=== PATIENT | female | born 1945 | race Caucasian/White ===

== ENCOUNTER 2017-04-18 13:13 | Inpatient (IN) | payer MEDICARE, MEDICAID ==
--- NOTE | 2017-04-18 14:04 | ED Physician Chart ---
ED Chief Complaint/HPI - Patient Information Date Seen:: 04/18/17 Time Seen:: 13:50 Chief Complaint:: aggressive behavior History of Present Illness:: location; general quality: yelling, aggressive behavior severity: moderate duration; one day context: SNF pt with psychiatric disorder started to yell very loudly at staff today. no fever, no medical complaint. pt yelled and swore at staff and threw items at medical staff. SNF staff called Dr. Gilbert who advised send for psychiatric evaluation and treatment. pt with prior history of same. no shortness of breath, no chest pain. mod factors: none assoc s/s; none hx from SNF RN, medic, patient. Allergies:: Allergies Allergy/AdvReac Type Severity Reaction Status Date / Time No Known Allergies Allergy Verified 04/18/17 13:58 Historian:: Patient, EMS, Other Review:: Nurse's Note Reviewed, EMS run form Reviewed ED Review of Systems - Review of Systems General/Constitutional: No fever Skin: No rash Cardio Vascular: No edema Pulmonary: No cough, No wheezing GI: No vomiting, No melena Psychiatric: Prior psych history Allergic/Immuno: No angioedema Neurological: No syncope, No seizure ED Past Medical History - Past Medical History Past Medical History: HTN, Asthma/COPD, Dyslipidemia Family History: None Social History: Non Smoker, No Alcohol, No Drug Use, Single, Care Facility Surgical History: None (pt answers with confabulation type talking (speaking of frogs, and wolves with clear speech)) Psychiatricy History: None Medication: None Family Medical History - Family Member Mother History Unknown: Yes Ethnicity: Non- ED Physical Exam - Physical Examination General/Constitutional: Awake, Well-developed, well-nourished, Alert, No distress, GCS 15, Non-toxic appearing, Ambulatory Head: Atraumatic Eyes: Lids, conjuctiva normal, PERRL, EOMI Skin: Nl inspection, No rash, No skin lesions, No ecchymosis, Well hydrated, No lymphadenopathy ENMT: External ears, nose nl, Nasal exam nl, Lips, teeth, gums nl Neck: Nontender, Full ROM w/o pain, No JVD, No nuchal rigidity, No bruit, No mass, No stridor Respiratory: Nl effort/Exclusion, Clear to Auscultation, No Wheeze/Rhonchi/Rales Cardio Vascular: RRR GI: No tenderness/rebounding/guarding : No CVA tenderness Extremities: No tenderness or effusion, Full ROM, normal strength in all extremities, No edema, Normal digits & nails Neuro/Psych: Alert/oriented (alert and awake, not oriented to time, place or season), DTR's symmetric, Normal sensory exam, Normal motor strength, Mood normal, Normal gait, No focal deficits ED Labs/Radiology/EKG Results - Lab Results Results: Laboratory Tests 04/18/17 04/18/17 04/18/17 14:00 14:00 14:00 WBC 8.7 RBC 4.79 Hgb 14.2 D Hct 43.4 D MCV 90.6 MCH 29.6 MCHC Differential 32.7 RDW 12.9 Plt Count 324 MPV 8.2 Neutrophils % 55.5 Lymphocytes % 32.8 Monocytes % 8.2 Eosinophils % 2.9 Basophils % 0.6 Sodium 137 Potassium 5.2 H Chloride 107 Carbon Dioxide 24.1 Anion Gap 11.1 BUN 29 H Creatinine 0.8 Est GFR ( Amer) TNP Est GFR (Non-Af Amer) TNP BUN/Creatinine Ratio 36.3 Glucose 102 Calcium 9.9 Total Bilirubin 0.3 AST 19 ALT 14 Alkaline Phosphatase 78 Total Protein 6.8 Albumin 4.0 Globulin 2.8 Albumin/Globulin Ratio 1.4 Triglycerides 122 Cholesterol 143 LDL Cholesterol Direct 79 HDL Cholesterol 48 TSH 2.32 ED Assessment - Assessment General Assessment: medical decision making: pt with psychiatric disorder. aggressive behavior worsenend today. recommend geropsych evaluation and treatment as inpatient. Dr. Gilbert and Lindy accept pt for treatment. findings consistent with acute psychotic behavior vs other ED Septic Shock - . Is Septic Shock (SBP<90, OR Lactate>4 mmol\L) present?: No ED Reassessment (Disposition) - Reassessment Reassessment:: pt in stable condition while in ER. pt yells out at staff very loudly and forcefully pushes away staff who are trying to help patient. Reassessment Condition:: Unchanged - Diagnosis Diagnosis:: acute psychosis medical clearance for [facility] - Patient Disposition Discharge/Transfer:: Acute Care w/in this hosp Admitted to:: [facility] Admitting Medical Physician:: Oswald Gilbert Admitting Psych Physician:: Ovidio Breaux Time:: 16:00 Condition at Disposition:: Stable
[2017-04-18 14:09] LABS: % BASOPHILS 0.6 % (0.0-2.0); % EOSINOPHILS 2.9 % (0.0-5.0); % LYMPHOCYTES 32.8 % (20.0-50.0); % MONOCYTES 8.2 % (2.0-10.0); % NEUTROPHILS 55.5 % (40.0-80.0); MEAN CELL VOLUME 90.6 fl (81-100); MEAN CORPUSCULAR HEMOGLOBIN 29.6 pg (27.0-31.0); MEAN CORPUSCULAR HGB CONC 32.7 pg (28.0-36.0); MEAN PLATELET VOLUME 8.2 fl; NEUTROPHILE ABSOLUTE 4.7 Th/cmm (1.8-8.0); PLATELET COUNT 324 Th/cmm (150-400); RED BLOOD COUNT 4.79 Mil/cmm (3.80-5.20); RED CELL DISTRIBUTION WIDTH 12.9 % (11.5-20.0); WHITE BLOOD COUNT 8.7 Th/cmm (4.8-10.8)
[2017-04-18 14:10] LABS: HEMATOCRIT 43.4 % (41.0-60); HEMOGLOBIN 14.2 gm/dL (12-16)
[2017-04-18 14:37] LABS: ALB/GLOB RATIO 1.4 (1.0-1.8); ALKALINE PHOSPHATASE 78 U/L (34-104); ANION GAP 11.1 (7.0-16.0); BILIRUBIN,TOTAL 0.3 mg/dL (0.3-1.0); BUN - UREA NITROGEN 29 mg/dL (7-25); BUN/CREATININE RATIO 36.3; CALCIUM SERUM 9.9 mg/dL (8.6-10.3); CARBON DIOXIDE 24.1 mEq/L (21.0-31.0); CHLORIDE 107 mEq/L (98-107); CHOLESTEROL 143 mg/dL (<200); CREATININE - SERUM 0.8 mg/dL (0.6-1.2); GLUCOSE 102 mg/dL (70-105); POTASSIUM SERUM 5.2 mEq/L (3.5-5.1); SGOT 19 U/L (13-39); SGPT/ALT 14 U/L (7-52); SODIUM SERUM 137 mEq/L (136-145); TRIGLYCERIDES 122 mg/dL (<150)
[2017-04-18 18:06] VITALS: BP 0/0
[2017-04-18] MEDS ORDERED: Fleet Enema 135 mL RC PRN (19:15)
[2017-04-19] MEDS ORDERED: Levothyroxine 0.025 Mg Tab PO SCH (07:30)
[2017-04-19] MEDS ORDERED: MULTIMINERAL PO SCH (09:00)
[2017-04-19] MEDS ORDERED: Ferrous Sulfate 325 MG TAB PO SCH (09:00)
[2017-04-19] MEDS ORDERED: MULTIVITAMIN PO SCH (09:00)
[2017-04-19] MEDS ORDERED: Non-Formulary Item 1 EA (Ascorbic Acid [Vitamin C] 500 MG) PO SCH (09:00)
[2017-04-19] MEDS ORDERED: Non-Formulary Item 1 EA (Rivaroxaban [Xarelto] 15 MG) PO SCH (09:00)
[2017-04-19] MEDS: Calcium Carb/Vit D 500 mg/200 U Tab PO SCH (09:45)
[2017-04-19] MEDS: Polyvinyl Alcohol Ophth Soln 15 mL Bottle EACH EYE SCH ×2 (09:45→16:36)
[2017-04-19] MEDS: Multivitamin w/ Minerals Tab PO SCH (09:45)
[2017-04-19] MEDS ORDERED: HYPROMELLOSE LEFT EYE PRN (11:04)
--- NOTE | 2017-04-19 19:21 | History & Physical ---
ADMIT DATE: 04/19/2017 CHIEF COMPLAINT: Increasing agitation. HISTORY OF PRESENT ILLNESS: This is a 71-year-old female with history of hypertension, asthma, COPD, hypercholesterolemia, debilitation, hypothyroidism, was admitted from nursing facility secondary to worsening behavior. The patient was brought in the ER, was cleared medically, and transferred to [facility] under the service of Dr. Breaux. The patient is a poor historian. Denies chest pain or shortness of breath. PAST MEDICAL HISTORY: As mentioned in history of present illness. PAST SURGICAL HISTORY: Denies surgeries in the past. ALLERGIES: No known drug allergies. MEDICATIONS: The patient is on Fosamax, vitamin C, Dulcolax, calcium, Coreg, Colace, iron, Synthroid, mirtazapine, Seroquel, Xarelto, and simvastatin. FAMILY HISTORY: Noncontributory. SOCIAL HISTORY: The patient is a correction patient requiring 24-hour total care. REVIEW OF SYSTEMS: This is limited secondary to the patient's current mental state. We will try to obtain more elevated detailed review of systems at a later date by talking to family members. There is a sister Abdi Hatch from [place] [phone]. We will also try to get information from nursing staff at [facility] [phone]. PHYSICAL EXAMINATION: VITAL SIGNS: Blood pressure 137/70, respirations 17, pulse 88, temperature 98.3. GENERAL: Elderly female, thin built. NECK: Supple. No mass. LUNGS: Equal breath sounds. Rhonchi. HEART: Regular rate and rhythm with systolic ejection murmur. ABDOMEN: Soft, positive bowel sounds. EXTREMITIES: Positive contractures atrophy. NEUROLOGIC: Limited. LABORATORY DATA: WBC 8.7, hemoglobin 14, platelets 224. Sodium 137, potassium 5.2, BUN 29, creatinine 0.8. Blood sugar was 102 also within normal range. ASSESSMENT AND PLAN: Hypertension, asthma, chronic obstructive pulmonary disease, hypercholesterolemia, dementia, hyperkalemia, renal insufficiency, hypothyroidism, osteoporosis. We will adjust patient's medications including beta alysia as well as Synthroid. We will decrease patient simvastatin 30 mg. We will review the patient's rest of the medications. We will continue monitoring closely. Psychiatry to manage the patient for psych issues. The patient is medically cleared. [facility]# [id number]
--- NOTE | 2017-04-19 19:29 | History & Physical ---
ADMIT DATE: 04/19/2017 IDENTIFYING INFORMATION: The patient is a 71-year-old female. CHIEF COMPLAINT: As per Dr. Gilbert. HISTORY OF PRESENT ILLNESS: The patient was sent because of agitation and psychosis. The patient has been delusional. She has a dull with her. She was unable to engage in any meaningful conversation. She is unable to tell me why she is here. She believed this is 10/12/2016, she knew she was at [place]. She reports she was here before but she did not give me more details. PAST PSYCHIATRIC HISTORY: The patient apparently was hospitalized here before but she was unable to give me more details. MEDICAL HISTORY: She has hypothyroidism. ALLERGIES: The patient has no known drug allergies. MEDICATIONS: She is on prednisone, Remeron, Seroquel. The patient was yelling loudly and screaming at the f[facility], she came from [place]. She was wearing ____ medical staff of different facility of Dr. Gilbert who advised and sent her here. FAMILY AND SOCIAL HISTORY: The patient has no known drug allergies. FAMILY AND SOCIAL HISTORY: The patient when asked about that, she told me that she has kids, she did not tell me how many but told me she is , , single, unable to give me much more information but she lives in a SNF facility in [facility]. MENTAL STATUS EXAMINATION: The patient is appropriately dressed, not well groomed. She was in bed. She was alert. When asked about her age, she said she was very old but no further information, was unable to tell me her date of . She was yelling and streaming so things at the staff and other patients at the SNF facility. Unable to participate in meaningful conversation ____ her memory or intelligence, but obviously, her long-term memory is poor. She cannot tell me her age. Recent memory is poor, cannot tell me events after coming here. She denies any hallucination, but she was acting out, aggressive, irritable. She denies that she wants to harm herself or anybody, but she was trying something at the staff. Her insight and judgment is impaired. IMPRESSION: AXIS I: Psychosis and dementia. MEDICAL DIAGNOSES: Deferred to Dr. Gilbert. Her assets, she is accepting treatment. Negative poor coping skills. INITIAL TREATMENT PLAN: The patient was started back on her medication the Remeron and the Seroquel. We will do group therapy, milieu therapy, individual therapy. ESTIMATED LENGTH OF STAY: 3-7 days. DISCHARGE CRITERIA: Decrease in psychosis, agitation. After discharge, outpatient treatment. JOB# [id number]
[2017-04-20] MEDS: Levothyroxine 0.025 Mg Tab PO SCH (06:43)
[2017-04-20] MEDS ORDERED: Polyvinyl Alcohol Ophth Soln 15 mL Bottle LEFT EYE PRN (07:56)
[2017-04-20] MEDS ORDERED: LEVOTHYROXINE SODIUM 0.025 MG PO SCH (09:00)
--- NOTE | 2017-04-20 12:28 | Internal Medicine Prog Note ---
Internal Medicine Subjective - Subjective Service Date: 04/20/17 Patient seen and examined:: with staff Patient is:: awake, confused Per staff patient has:: tolerating meds Internal Medicine Objective - Results Result Diagrams: 04/18/17 14:00 04/18/17 14:00 Recent Labs: Laboratory Last Values WBC 8.7 Th/cmm (4.8-10.8) 04/18/17 14:00 RBC 4.79 Mil/cmm (3.80-5.20) 04/18/17 14:00 Hgb 14.2 gm/dL (12-16) D 04/18/17 14:00 Hct 43.4 % (41.0-60) D 04/18/17 14:00 MCV 90.6 fl (81-100) 04/18/17 14:00 MCH 29.6 pg (27.0-31.0) 04/18/17 14:00 MCHC Differential 32.7 pg (28.0-36.0) 04/18/17 14:00 RDW 12.9 % (11.5-20.0) 04/18/17 14:00 Plt Count 324 Th/cmm (150-400) 04/18/17 14:00 MPV 8.2 fl 04/18/17 14:00 Neutrophils % 55.5 % (40.0-80.0) 04/18/17 14:00 Lymphocytes % 32.8 % (20.0-50.0) 04/18/17 14:00 Monocytes % 8.2 % (2.0-10.0) 04/18/17 14:00 Eosinophils % 2.9 % (0.0-5.0) 04/18/17 14:00 Basophils % 0.6 % (0.0-2.0) 04/18/17 14:00 Sodium 137 mEq/L (136-145) 04/18/17 14:00 Potassium 5.2 mEq/L (3.5-5.1) H 04/18/17 14:00 Chloride 107 mEq/L (98-107) 04/18/17 14:00 Carbon Dioxide 24.1 mEq/L (21.0-31.0) 04/18/17 14:00 Anion Gap 11.1 (7.0-16.0) 04/18/17 14:00 BUN 29 mg/dL (7-25) H 04/18/17 14:00 Creatinine 0.8 mg/dL (0.6-1.2) 04/18/17 14:00 Est GFR ( Amer) TNP 04/18/17 14:00 Est GFR (Non-Af Amer) TNP 04/18/17 14:00 BUN/Creatinine Ratio 36.3 04/18/17 14:00 Glucose 102 mg/dL (70-105) 04/18/17 14:00 Calcium 9.9 mg/dL (8.6-10.3) 04/18/17 14:00 Total Bilirubin 0.3 mg/dL (0.3-1.0) 04/18/17 14:00 AST 19 U/L (13-39) 04/18/17 14:00 ALT 14 U/L (7-52) 04/18/17 14:00 Alkaline Phosphatase 78 U/L (34-104) 04/18/17 14:00 Total Protein 6.8 gm/dL (6.0-8.3) 04/18/17 14:00 Albumin 4.0 gm/dL (3.7-5.3) 04/18/17 14:00 Globulin 2.8 gm/dL 04/18/17 14:00 Albumin/Globulin Ratio 1.4 (1.0-1.8) 04/18/17 14:00 Triglycerides 122 mg/dL (<150) 04/18/17 14:00 Cholesterol 143 mg/dL (<200) 04/18/17 14:00 LDL Cholesterol Direct 79 mg/dL (75-193) 04/18/17 14:00 HDL Cholesterol 48 mg/dL (23-92) 04/18/17 14:00 TSH 2.32 uIU/ml (0.34-5.60) 04/18/17 14:00 - Physical Exam Vitals and I&O: Vital Signs Temp 98.4 F 04/20/17 06:03 Pulse 80 04/20/17 06:03 Resp 19 04/20/17 06:03 BP 129/75 04/20/17 06:03 Pulse Ox 96 04/20/17 06:03 Intake & Output 04/19/17 04/20/17 04/20/17 18:59 06:59 18:59 Intake Total 1600 120 Balance 1600 120 Intake: Oral 1600 120 Other: # Voids 4 3 # Bowel Movements 0 Active Medications: Current Medications Alendronate Sodium (Fosamax) 70 mg PO QSAT [facility] Stop: 06/18/17 11:59 Last Admin: 04/19/17 13:00 Dose: Not Given Artificial Tears (Artificial Tears Ophth Soln) 1 drop EACH EYE BID KEV Stop: 06/18/17 08:59 Last Admin: 04/19/17 16:36 Dose: Not Given Artificial Tears (Artificial Tears Ophth Soln) 1 drop LEFT EYE 5XD PRN PRN Reason: ITCHING Stop: 06/19/17 07:55 Ascorbic Acid (Vitamin C) 500 mg PO DAILY KEV Stop: 06/18/17 08:59 Last Admin: 04/19/17 09:45 Dose: Not Given Bisacodyl (Dulcolax 10 Mg Supp) 10 mg RC DAILY PRN PRN Reason: Constipation Stop: 06/17/17 18:39 Calcium/Vitamin D (Oscal W/Vitamin D) 1 tab PO DAILY [facility] Stop: 06/18/17 08:59 Last Admin: 04/19/17 09:45 Dose: Not Given Carvedilol (Coreg) 6.25 mg PO BID [facility]EV Stop: 06/18/17 08:59 Last Admin: 04/19/17 16:36 Dose: Not Given Docusate Sodium (Colace) 100 mg PO BID [facility] Stop: 06/17/17 18:59 Last Admin: 04/19/17 16:36 Dose: Not Given Levothyroxine Sodium (Synthroid) 0.025 mg PO QDAC [facility] Stop: 06/19/17 07:29 Last Admin: 04/20/17 06:43 Dose: Not Given Mirtazapine (Remeron) 7.5 mg PO HS [facility] PRN Reason: Protocol Stop: 06/17/17 20:59 Last Admin: 04/19/17 21:20 Dose: Not Given Montelukast Sodium (Singulair) 10 mg PO HS [facility] Stop: 06/17/17 20:59 Last Admin: 04/19/17 21:20 Dose: Not Given Prednisone (Deltasone) 5 mg PO BID [facility] Stop: 06/18/17 08:59 Last Admin: 04/19/17 16:36 Dose: Not Given Quetiapine Fumarate (Seroquel) 25 mg PO HS KEV PRN Reason: Protocol Stop: 06/17/17 20:59 Last Admin: 04/19/17 21:20 Dose: Not Given Rivaroxaban (Xarelto) 10 mg PO DAILY [facility] Stop: 06/18/17 08:59 Last Admin: 04/19/17 09:45 Dose: Not Given Senna (Senna) 8.6 mg PO DAILY [facility] Stop: 06/18/17 08:59 Last Admin: 04/19/17 09:45 Dose: Not Given Simvastatin (Zocor) 20 mg PO HS [facility] Stop: 06/17/17 20:59 Last Admin: 04/19/17 21:20 Dose: Not Given Sodium Phosphate (Fleet Enema) 135 ml RC DAILY PRN PRN Reason: CONSTIPATION Stop: 06/17/17 19:14 General: alert, demented HEENT: NC/AT, PERRLA Lungs: CTAB Cardiovascular: RRR, Normal S1, Normal S2, without murmur Abdomen: soft, non-tender, non-distended, positive bowel sound Extremities: excoriation Neurological: alert - Procedures Procedures: Procedures Procedure Code Date TANIA MUSC/FASCIA 20 SQ CM/< 83944 10/20/12 EXC LES SOFT TISSUE NEC 83.39 10/20/12 OPEN REDUC-INT FIX FEMUR 79.35 10/20/12 OTHER GROUP THERAPY 94.44 08/04/14 PACKED CELL TRANSFUSION 99.04 10/20/12 PARTIAL HIP REPLACEMENT 81.52 10/20/12 PARTIAL HIP REPLACEMENT 56135 10/20/12 RECREATIONAL THERAPY 93.81 12/29/11 TREAT THIGH FRACTURE 68233 10/20/12 Internal Medicine Assmt/Plan - Assessment Assessment: HTN ASTHMA COPD HYPERCHOLESTEREMIA DEMENTIA HYPERKALEMIA RENAL INSUFFICIENCY HYPOTHYROIDISM OSTEOPOROSIS - Plan Plan: low fat diet bronchodilators as needed safety precautions psych f/u continue current plan of care
[2017-04-20] MEDS ORDERED: Menthol/Zinc Oxide Oint 113gm Tube TP PRN (15:42)
[2017-04-20] MEDS ORDERED: Menthol/Zinc Oxide Oint 113gm Tube TP SCH (17:00)
[2017-04-20] MEDS: Calcium Carb/Vit D 500 mg/200 U Tab PO SCH (18:29)
[2017-04-20] MEDS: Multivitamin w/ Minerals Tab PO SCH (18:29)
[2017-04-20] MEDS: Polyvinyl Alcohol Ophth Soln 15 mL Bottle EACH EYE SCH (18:29)
--- NOTE | 2017-04-21 01:16 | Progress Notes ---
DATE: 04/20/2017 SUBJECTIVE: The patient seen, chart reviewed, discussed with staff. The patient was sent from [facility] due to agitation, delusional, psychosis, rambling nonsensically. The patient believes that the month is October. Does not know where she is or what is going on. She was apparently yelling loudly and screaming at the [place] [facility]. They could not handle her there due to her behaviors. On [id number], the patient is minimizing, guarded, stating, "how is the happiest anamika in the world." The patient disoriented, making nonsensical statements. ASSESSMENT: The patient remains impulsive, unpredictable, not safe for a lower level of care. PLAN: Continue medications at current dose, titrate appropriately. We will reach out to the patient's family and will monitor closely. JOB# [id number]
[2017-04-21] MEDS: Levothyroxine 0.025 Mg Tab PO SCH (06:39)
--- NOTE | 2017-04-21 14:14 | Internal Medicine Prog Note ---
Internal Medicine Subjective - Subjective Service Date: 04/21/17 Patient is:: awake, confused Per staff patient has:: tolerating meds Internal Medicine Objective - Results Result Diagrams: 04/18/17 14:00 04/18/17 14:00 Recent Labs: Laboratory Last Values WBC 8.7 Th/cmm (4.8-10.8) 04/18/17 14:00 RBC 4.79 Mil/cmm (3.80-5.20) 04/18/17 14:00 Hgb 14.2 gm/dL (12-16) D 04/18/17 14:00 Hct 43.4 % (41.0-60) D 04/18/17 14:00 MCV 90.6 fl (81-100) 04/18/17 14:00 MCH 29.6 pg (27.0-31.0) 04/18/17 14:00 MCHC Differential 32.7 pg (28.0-36.0) 04/18/17 14:00 RDW 12.9 % (11.5-20.0) 04/18/17 14:00 Plt Count 324 Th/cmm (150-400) 04/18/17 14:00 MPV 8.2 fl 04/18/17 14:00 Neutrophils % 55.5 % (40.0-80.0) 04/18/17 14:00 Lymphocytes % 32.8 % (20.0-50.0) 04/18/17 14:00 Monocytes % 8.2 % (2.0-10.0) 04/18/17 14:00 Eosinophils % 2.9 % (0.0-5.0) 04/18/17 14:00 Basophils % 0.6 % (0.0-2.0) 04/18/17 14:00 Sodium 137 mEq/L (136-145) 04/18/17 14:00 Potassium 5.2 mEq/L (3.5-5.1) H 04/18/17 14:00 Chloride 107 mEq/L (98-107) 04/18/17 14:00 Carbon Dioxide 24.1 mEq/L (21.0-31.0) 04/18/17 14:00 Anion Gap 11.1 (7.0-16.0) 04/18/17 14:00 BUN 29 mg/dL (7-25) H 04/18/17 14:00 Creatinine 0.8 mg/dL (0.6-1.2) 04/18/17 14:00 Est GFR ( Amer) TNP 04/18/17 14:00 Est GFR (Non-Af Amer) TNP 04/18/17 14:00 BUN/Creatinine Ratio 36.3 04/18/17 14:00 Glucose 102 mg/dL (70-105) 04/18/17 14:00 Calcium 9.9 mg/dL (8.6-10.3) 04/18/17 14:00 Total Bilirubin 0.3 mg/dL (0.3-1.0) 04/18/17 14:00 AST 19 U/L (13-39) 04/18/17 14:00 ALT 14 U/L (7-52) 04/18/17 14:00 Alkaline Phosphatase 78 U/L (34-104) 04/18/17 14:00 Total Protein 6.8 gm/dL (6.0-8.3) 04/18/17 14:00 Albumin 4.0 gm/dL (3.7-5.3) 04/18/17 14:00 Globulin 2.8 gm/dL 04/18/17 14:00 Albumin/Globulin Ratio 1.4 (1.0-1.8) 04/18/17 14:00 Triglycerides 122 mg/dL (<150) 04/18/17 14:00 Cholesterol 143 mg/dL (<200) 04/18/17 14:00 LDL Cholesterol Direct 79 mg/dL (75-193) 04/18/17 14:00 HDL Cholesterol 48 mg/dL (23-92) 04/18/17 14:00 TSH 2.32 uIU/ml (0.34-5.60) 04/18/17 14:00 RPR NONREACTIVE (NONREACTIVE) 04/18/17 14:00 - Physical Exam Vitals and I&O: Vital Signs Temp 98.1 F 04/21/17 05:56 Pulse 88 04/21/17 05:56 Resp 20 04/21/17 05:56 BP 133/72 04/21/17 05:56 Pulse Ox 96 04/21/17 05:56 Intake & Output 04/20/17 04/21/17 04/21/17 18:59 06:59 18:59 Intake Total 900 240 Balance 900 240 Intake: Oral 900 240 Other: # Voids 4 2 # Bowel Movements 1 0 Active Medications: Current Medications Alendronate Sodium (Fosamax) 70 mg PO QSAT [facility] Stop: 06/18/17 11:59 Last Admin: 04/19/17 13:00 Dose: Not Given Artificial Tears (Artificial Tears Ophth Soln) 1 drop EACH EYE BID [facility] Stop: 06/18/17 08:59 Last Admin: 04/20/17 18:29 Dose: Not Given Artificial Tears (Artificial Tears Ophth Soln) 1 drop LEFT EYE 5XD PRN PRN Reason: ITCHING Stop: 06/19/17 07:55 Ascorbic Acid (Vitamin C) 500 mg PO DAILY [facility] Stop: 06/18/17 08:59 Last Admin: 04/20/17 18:29 Dose: Not Given Bisacodyl (Dulcolax 10 Mg Supp) 10 mg RC DAILY PRN PRN Reason: Constipation Stop: 06/17/17 18:39 Calamine/Phenol (Calmoseptine) 1 appl TP QID PRN PRN Reason: Skin Irritation Stop: 06/19/17 15:41 Calcium/Vitamin D (Oscal W/Vitamin D) 1 tab PO DAILY [facility] Stop: 06/18/17 08:59 Last Admin: 04/20/17 18:29 Dose: Not Given Carvedilol (Coreg) 6.25 mg PO BID [facility] Stop: 06/18/17 08:59 Last Admin: 04/20/17 18:29 Dose: Not Given Docusate Sodium (Colace) 100 mg PO BID [facility] Stop: 06/17/17 18:59 Last Admin: 04/20/17 18:29 Dose: Not Given Levothyroxine Sodium (Synthroid) 0.025 mg PO QDAC [facility] Stop: 06/19/17 07:29 Last Admin: 04/21/17 06:39 Dose: Not Given Mirtazapine (Remeron) 7.5 mg PO HS K[facility] PRN Reason: Protocol Stop: 06/17/17 20:59 Last Admin: 04/20/17 21:09 Dose: Not Given Montelukast Sodium (Singulair) 10 mg PO HS [facility] Stop: 06/17/17 20:59 Last Admin: 04/20/17 21:09 Dose: Not Given Prednisone (Deltasone) 5 mg PO BID [facility] Stop: 06/18/17 08:59 Last Admin: 04/20/17 18:30 Dose: Not Given Quetiapine Fumarate (Seroquel) 25 mg PO HS [facility] PRN Reason: Protocol Stop: 06/17/17 20:59 Last Admin: 04/20/17 21:09 Dose: Not Given Rivaroxaban (Xarelto) 10 mg PO DAILY [facility] Stop: 06/18/17 08:59 Last Admin: 04/20/17 18:30 Dose: Not Given Senna (Senna) 8.6 mg PO DAILY [facility] Stop: 06/18/17 08:59 Last Admin: 04/20/17 18:30 Dose: Not Given Simvastatin (Zocor) 20 mg PO HS [facility] Stop: 06/17/17 20:59 Last Admin: 04/20/17 21:09 Dose: Not Given Sodium Phosphate (Fleet Enema) 135 ml RC DAILY PRN PRN Reason: CONSTIPATION Stop: 06/17/17 19:14 General: alert, demented HEENT: NC/AT, PERRLA Lungs: CTAB Cardiovascular: RRR, Normal S1, Normal S2, without murmur Abdomen: soft, non-tender, non-distended, positive bowel sound Extremities: excoriation Neurological: alert - Procedures Procedures: Procedures Procedure Code Date TANIA MUSC/FASCIA 20 SQ CM/< 75004 10/20/12 EXC LES SOFT TISSUE NEC 83.39 10/20/12 OPEN REDUC-INT FIX FEMUR 79.35 10/20/12 OTHER GROUP THERAPY 94.44 08/04/14 PACKED CELL TRANSFUSION 99.04 10/20/12 PARTIAL HIP REPLACEMENT 81.52 10/20/12 PARTIAL HIP REPLACEMENT 50025 10/20/12 RECREATIONAL THERAPY 93.81 12/29/11 TREAT THIGH FRACTURE 59375 10/20/12 Internal Medicine Assmt/Plan - Assessment Assessment: HTN ASTHMA COPD HYPERCHOLESTEREMIA DEMENTIA HYPERKALEMIA RENAL INSUFFICIENCY HYPOTHYROIDISM OSTEOPOROSIS - Plan Plan: low fat diet bronchodilators as needed safety precautions psych f/u continue current plan of care
--- NOTE | 2017-04-21 20:44 | Progress Notes ---
DATE: 04/21/2017 SUBJECTIVE: The patient was seen, chart reviewed, discussed with staff. The patient remains symptomatic, bizarre, asking questions like "have you ever helped a small child," calling me a terrible human being, stating that I am "a __bad person__." I am not really able to get a word. I tried to discuss the risks and benefits of medications with her as she is refusing, but she is ruminative about children and helping children, pointing her fingers, throwing things at staff, unstable, eating with prompting, throwing some food on the ground, isolative. ASSESSMENT: The patient bizarre, psychotic, delusional, dangerous, aggressive, refusing treatment. PLAN: Initiate a [place] petition. The patient is refusing treatment, unsafe for a lower level of care. JOB# [id number] MTDD
[2017-04-22] MEDS: Levothyroxine 0.025 Mg Tab PO SCH (06:38)
[2017-04-22] MEDS: Multivitamin w/ Minerals Tab PO SCH ×2 (08:29→08:30)
[2017-04-22] MEDS: Calcium Carb/Vit D 500 mg/200 U Tab PO SCH ×2 (08:29→08:30)
[2017-04-22] MEDS: Polyvinyl Alcohol Ophth Soln 15 mL Bottle EACH EYE SCH ×3 (08:29→17:03)
--- NOTE | 2017-04-22 15:53 | Internal Medicine Prog Note ---
Internal Medicine Subjective - Subjective Service Date: 04/22/17 Patient is:: awake, confused Per staff patient has:: tolerating meds Internal Medicine Objective - Results Result Diagrams: 04/18/17 14:00 04/18/17 14:00 Recent Labs: Laboratory Last Values WBC 8.7 Th/cmm (4.8-10.8) 04/18/17 14:00 RBC 4.79 Mil/cmm (3.80-5.20) 04/18/17 14:00 Hgb 14.2 gm/dL (12-16) D 04/18/17 14:00 Hct 43.4 % (41.0-60) D 04/18/17 14:00 MCV 90.6 fl (81-100) 04/18/17 14:00 MCH 29.6 pg (27.0-31.0) 04/18/17 14:00 MCHC Differential 32.7 pg (28.0-36.0) 04/18/17 14:00 RDW 12.9 % (11.5-20.0) 04/18/17 14:00 Plt Count 324 Th/cmm (150-400) 04/18/17 14:00 MPV 8.2 fl 04/18/17 14:00 Neutrophils % 55.5 % (40.0-80.0) 04/18/17 14:00 Lymphocytes % 32.8 % (20.0-50.0) 04/18/17 14:00 Monocytes % 8.2 % (2.0-10.0) 04/18/17 14:00 Eosinophils % 2.9 % (0.0-5.0) 04/18/17 14:00 Basophils % 0.6 % (0.0-2.0) 04/18/17 14:00 Sodium 137 mEq/L (136-145) 04/18/17 14:00 Potassium 5.2 mEq/L (3.5-5.1) H 04/18/17 14:00 Chloride 107 mEq/L (98-107) 04/18/17 14:00 Carbon Dioxide 24.1 mEq/L (21.0-31.0) 04/18/17 14:00 Anion Gap 11.1 (7.0-16.0) 04/18/17 14:00 BUN 29 mg/dL (7-25) H 04/18/17 14:00 Creatinine 0.8 mg/dL (0.6-1.2) 04/18/17 14:00 Est GFR ( Amer) TNP 04/18/17 14:00 Est GFR (Non-Af Amer) TNP 04/18/17 14:00 BUN/Creatinine Ratio 36.3 04/18/17 14:00 Glucose 102 mg/dL (70-105) 04/18/17 14:00 Calcium 9.9 mg/dL (8.6-10.3) 04/18/17 14:00 Total Bilirubin 0.3 mg/dL (0.3-1.0) 04/18/17 14:00 AST 19 U/L (13-39) 04/18/17 14:00 ALT 14 U/L (7-52) 04/18/17 14:00 Alkaline Phosphatase 78 U/L (34-104) 04/18/17 14:00 Total Protein 6.8 gm/dL (6.0-8.3) 04/18/17 14:00 Albumin 4.0 gm/dL (3.7-5.3) 04/18/17 14:00 Globulin 2.8 gm/dL 04/18/17 14:00 Albumin/Globulin Ratio 1.4 (1.0-1.8) 04/18/17 14:00 Triglycerides 122 mg/dL (<150) 04/18/17 14:00 Cholesterol 143 mg/dL (<200) 04/18/17 14:00 LDL Cholesterol Direct 79 mg/dL (75-193) 04/18/17 14:00 HDL Cholesterol 48 mg/dL (23-92) 04/18/17 14:00 TSH 2.32 uIU/ml (0.34-5.60) 04/18/17 14:00 RPR NONREACTIVE (NONREACTIVE) 04/18/17 14:00 - Physical Exam Vitals and I&O: Vital Signs Temp 97.9 F 04/22/17 14:00 Pulse 82 04/22/17 14:00 Resp 19 04/22/17 14:00 BP 115/73 04/22/17 14:00 Pulse Ox 97 04/22/17 14:00 Intake & Output 04/21/17 04/22/17 04/22/17 18:59 06:59 18:59 Intake Total 1320 Balance 1320 Intake: Oral 1320 Other: # Voids 3 # Bowel Movements 0 Active Medications: Current Medications Alendronate Sodium (Fosamax) 70 mg PO QSAT@0630 [facility] Stop: 06/24/17 06:29 Artificial Tears (Artificial Tears Ophth Soln) 1 drop EACH EYE BID KEV Stop: 06/18/17 08:59 Last Admin: 04/22/17 08:30 Dose: Not Given Artificial Tears (Artificial Tears Ophth Soln) 1 drop LEFT EYE 5XD PRN PRN Reason: ITCHING Stop: 06/19/17 07:55 Ascorbic Acid (Vitamin C) 500 mg PO DAILY KEV Stop: 06/18/17 08:59 Last Admin: 04/22/17 08:30 Dose: Not Given Bisacodyl (Dulcolax 10 Mg Supp) 10 mg RC DAILY PRN PRN Reason: Constipation Stop: 06/17/17 18:39 Calamine/Phenol (Calmoseptine) 1 appl TP QID PRN PRN Reason: Skin Irritation Stop: 06/19/17 15:41 Calcium/Vitamin D (Oscal W/Vitamin D) 1 tab PO DAILY KEV Stop: 06/18/17 08:59 Last Admin: 04/22/17 08:30 Dose: Not Given Carvedilol (Coreg) 6.25 mg PO BID KEV Stop: 06/18/17 08:59 Last Admin: 04/22/17 08:30 Dose: Not Given Docusate Sodium (Colace) 100 mg PO BID KEV Stop: 06/17/17 18:59 Last Admin: 04/22/17 08:30 Dose: Not Given Levothyroxine Sodium (Synthroid) 0.025 mg PO QDAC KEV Stop: 06/19/17 07:29 Last Admin: 04/22/17 06:38 Dose: Not Given Mirtazapine (Remeron) 7.5 mg PO HS KEV PRN Reason: Protocol Stop: 06/17/17 20:59 Last Admin: 04/21/17 21:48 Dose: Not Given Montelukast Sodium (Singulair) 10 mg PO HS KEV Stop: 06/17/17 20:59 Last Admin: 04/21/17 21:48 Dose: Not Given Prednisone (Deltasone) 5 mg PO BID KEV Stop: 06/18/17 08:59 Last Admin: 04/22/17 08:30 Dose: Not Given Quetiapine Fumarate (Seroquel) 25 mg PO HS KEV PRN Reason: Protocol Stop: 06/17/17 20:59 Last Admin: 04/21/17 21:49 Dose: Not Given Rivaroxaban (Xarelto) 10 mg PO DAILY KEV Stop: 06/18/17 08:59 Last Admin: 04/22/17 08:31 Dose: Not Given Senna (Senna) 8.6 mg PO DAILY KEV Stop: 06/18/17 08:59 Last Admin: 04/22/17 08:31 Dose: Not Given Simvastatin (Zocor) 20 mg PO HS KEV Stop: 06/17/17 20:59 Last Admin: 04/21/17 21:49 Dose: Not Given Sodium Phosphate (Fleet Enema) 135 ml RC DAILY PRN PRN Reason: CONSTIPATION Stop: 06/17/17 19:14 General: alert, demented HEENT: NC/AT, PERRLA Lungs: CTAB Cardiovascular: RRR, Normal S1, Normal S2, without murmur Abdomen: soft, non-tender, non-distended, positive bowel sound Extremities: excoriation Neurological: alert - Procedures Procedures: Procedures Procedure Code Date TANIA MUSC/FASCIA 20 SQ CM/< 89607 10/20/12 EXC LES SOFT TISSUE NEC 83.39 10/20/12 OPEN REDUC-INT FIX FEMUR 79.35 10/20/12 OTHER GROUP THERAPY 94.44 08/04/14 PACKED CELL TRANSFUSION 99.04 10/20/12 PARTIAL HIP REPLACEMENT 81.52 10/20/12 PARTIAL HIP REPLACEMENT 44441 10/20/12 RECREATIONAL THERAPY 93.81 12/29/11 TREAT THIGH FRACTURE 25501 10/20/12 Internal Medicine Assmt/Plan - Assessment Assessment: HTN ASTHMA COPD HYPERCHOLESTEREMIA DEMENTIA HYPERKALEMIA RENAL INSUFFICIENCY HYPOTHYROIDISM OSTEOPOROSIS - Plan Plan: low fat diet bronchodilators as needed safety precautions psych f/u continue current plan of care
--- NOTE | 2017-04-22 18:59 | Progress Notes ---
DATE: 04/22/2017 SUBJECTIVE: The patient was seen, chart reviewed, discussed with staff. The patient remains bizarre, refusing medications, is unclear as to why, states that the staff is giving it to her that the reason why she does not take it, but in fact this is completely false. Still with bizarre comments, nonsensical statements, disorganized behaviors, manic appearing, flight of ideas, . Sleeping well, eating well. She remains isolative. ASSESSMENT: The patient remains symptomatic, bizarre, nonsensical, refusing treatment. PLAN: Currently pending a [place] hearing. We will monitor and follow up. The patient remains unstable. We are also trying to help her with placement. She is currently also gravely disabled. JOB# [id number]
[2017-04-23] MEDS: Levothyroxine 0.025 Mg Tab PO SCH (06:34)
[2017-04-23] MEDS: Calcium Carb/Vit D 500 mg/200 U Tab PO SCH (09:53)
[2017-04-23] MEDS: Multivitamin w/ Minerals Tab PO SCH (09:54)
[2017-04-23] MEDS: Polyvinyl Alcohol Ophth Soln 15 mL Bottle EACH EYE SCH ×2 (09:54→17:38)
--- NOTE | 2017-04-23 11:38 | Internal Medicine Prog Note ---
Internal Medicine Subjective - Subjective Service Date: 04/23/17 Patient is:: awake, confused Per staff patient has:: tolerating meds Internal Medicine Objective - Results Result Diagrams: 04/18/17 14:00 04/18/17 14:00 Recent Labs: Laboratory Last Values WBC 8.7 Th/cmm (4.8-10.8) 04/18/17 14:00 RBC 4.79 Mil/cmm (3.80-5.20) 04/18/17 14:00 Hgb 14.2 gm/dL (12-16) D 04/18/17 14:00 Hct 43.4 % (41.0-60) D 04/18/17 14:00 MCV 90.6 fl (81-100) 04/18/17 14:00 MCH 29.6 pg (27.0-31.0) 04/18/17 14:00 MCHC Differential 32.7 pg (28.0-36.0) 04/18/17 14:00 RDW 12.9 % (11.5-20.0) 04/18/17 14:00 Plt Count 324 Th/cmm (150-400) 04/18/17 14:00 MPV 8.2 fl 04/18/17 14:00 Neutrophils % 55.5 % (40.0-80.0) 04/18/17 14:00 Lymphocytes % 32.8 % (20.0-50.0) 04/18/17 14:00 Monocytes % 8.2 % (2.0-10.0) 04/18/17 14:00 Eosinophils % 2.9 % (0.0-5.0) 04/18/17 14:00 Basophils % 0.6 % (0.0-2.0) 04/18/17 14:00 Sodium 137 mEq/L (136-145) 04/18/17 14:00 Potassium 5.2 mEq/L (3.5-5.1) H 04/18/17 14:00 Chloride 107 mEq/L (98-107) 04/18/17 14:00 Carbon Dioxide 24.1 mEq/L (21.0-31.0) 04/18/17 14:00 Anion Gap 11.1 (7.0-16.0) 04/18/17 14:00 BUN 29 mg/dL (7-25) H 04/18/17 14:00 Creatinine 0.8 mg/dL (0.6-1.2) 04/18/17 14:00 Est GFR ( Amer) TNP 04/18/17 14:00 Est GFR (Non-Af Amer) TNP 04/18/17 14:00 BUN/Creatinine Ratio 36.3 04/18/17 14:00 Glucose 102 mg/dL (70-105) 04/18/17 14:00 Calcium 9.9 mg/dL (8.6-10.3) 04/18/17 14:00 Total Bilirubin 0.3 mg/dL (0.3-1.0) 04/18/17 14:00 AST 19 U/L (13-39) 04/18/17 14:00 ALT 14 U/L (7-52) 04/18/17 14:00 Alkaline Phosphatase 78 U/L (34-104) 04/18/17 14:00 Total Protein 6.8 gm/dL (6.0-8.3) 04/18/17 14:00 Albumin 4.0 gm/dL (3.7-5.3) 04/18/17 14:00 Globulin 2.8 gm/dL 04/18/17 14:00 Albumin/Globulin Ratio 1.4 (1.0-1.8) 04/18/17 14:00 Triglycerides 122 mg/dL (<150) 04/18/17 14:00 Cholesterol 143 mg/dL (<200) 04/18/17 14:00 LDL Cholesterol Direct 79 mg/dL (75-193) 04/18/17 14:00 HDL Cholesterol 48 mg/dL (23-92) 04/18/17 14:00 TSH 2.32 uIU/ml (0.34-5.60) 04/18/17 14:00 RPR NONREACTIVE (NONREACTIVE) 04/18/17 14:00 - Physical Exam Vitals and I&O: Vital Signs Temp 97.6 F 04/23/17 06:22 Pulse 83 04/23/17 06:22 Resp 18 04/23/17 06:22 BP 119/77 04/23/17 06:22 Pulse Ox 97 04/23/17 06:22 Intake & Output 04/22/17 04/23/17 04/23/17 18:59 06:59 18:59 Intake Total 1200 120 Balance 1200 120 Intake: Oral 1200 120 Other: # Voids 3 # Bowel Movements 1 Active Medications: Current Medications Alendronate Sodium (Fosamax) 70 mg PO QSAT@0630 [facility] Stop: 06/24/17 06:29 Artificial Tears (Artificial Tears Ophth Soln) 1 drop EACH EYE BID KEV Stop: 06/18/17 08:59 Last Admin: 04/23/17 09:54 Dose: Not Given Artificial Tears (Artificial Tears Ophth Soln) 1 drop LEFT EYE 5XD PRN PRN Reason: ITCHING Stop: 06/19/17 07:55 Ascorbic Acid (Vitamin C) 500 mg PO DAILY KEV Stop: 06/18/17 08:59 Last Admin: 04/23/17 09:53 Dose: Not Given Bisacodyl (Dulcolax 10 Mg Supp) 10 mg RC DAILY PRN PRN Reason: Constipation Stop: 06/17/17 18:39 Calamine/Phenol (Calmoseptine) 1 appl TP QID PRN PRN Reason: Skin Irritation Stop: 06/19/17 15:41 Calcium/Vitamin D (Oscal W/Vitamin D) 1 tab PO DAILY KEV Stop: 06/18/17 08:59 Last Admin: 04/23/17 09:53 Dose: Not Given Carvedilol (Coreg) 6.25 mg PO BID KEV Stop: 06/18/17 08:59 Last Admin: 04/23/17 09:53 Dose: Not Given Docusate Sodium (Colace) 100 mg PO BID KEV Stop: 06/17/17 18:59 Last Admin: 04/23/17 09:53 Dose: Not Given Levothyroxine Sodium (Synthroid) 0.025 mg PO QDAC KEV Stop: 06/19/17 07:29 Last Admin: 04/23/17 06:34 Dose: 0.025 mg Mirtazapine (Remeron) 7.5 mg PO HS KEV PRN Reason: Protocol Stop: 06/17/17 20:59 Last Admin: 04/22/17 20:54 Dose: 7.5 mg Montelukast Sodium (Singulair) 10 mg PO HS KEV Stop: 06/17/17 20:59 Last Admin: 04/22/17 20:54 Dose: 10 mg Prednisone (Deltasone) 5 mg PO BID KEV Stop: 06/18/17 08:59 Last Admin: 04/23/17 09:54 Dose: Not Given Quetiapine Fumarate (Seroquel) 25 mg PO HS KEV PRN Reason: Protocol Stop: 06/17/17 20:59 Last Admin: 04/22/17 20:53 Dose: 25 mg Rivaroxaban (Xarelto) 10 mg PO DAILY [facility] Stop: 06/18/17 08:59 Last Admin: 04/23/17 09:54 Dose: Not Given Senna (Senna) 8.6 mg PO DAILY [facility] Stop: 06/18/17 08:59 Last Admin: 04/23/17 09:54 Dose: Not Given Simvastatin (Zocor) 20 mg PO HS [facility] Stop: 06/17/17 20:59 Last Admin: 04/22/17 20:54 Dose: 20 mg Sodium Phosphate (Fleet Enema) 135 ml RC DAILY PRN PRN Reason: CONSTIPATION Stop: 06/17/17 19:14 General: alert, demented HEENT: NC/AT, PERRLA Lungs: CTAB Cardiovascular: RRR, Normal S1, Normal S2, without murmur Abdomen: soft, non-tender, non-distended, positive bowel sound Extremities: excoriation Neurological: alert - Procedures Procedures: Procedures Procedure Code Date TANIA MUSC/FASCIA 20 SQ CM/< 58818 10/20/12 EXC LES SOFT TISSUE NEC 83.39 10/20/12 OPEN REDUC-INT FIX FEMUR 79.35 10/20/12 OTHER GROUP THERAPY 94.44 08/04/14 PACKED CELL TRANSFUSION 99.04 10/20/12 PARTIAL HIP REPLACEMENT 81.52 10/20/12 PARTIAL HIP REPLACEMENT 59788 10/20/12 RECREATIONAL THERAPY 93.81 12/29/11 TREAT THIGH FRACTURE 15156 10/20/12 Internal Medicine Assmt/Plan - Assessment Assessment: HTN ASTHMA COPD HYPERCHOLESTEREMIA DEMENTIA HYPERKALEMIA RENAL INSUFFICIENCY HYPOTHYROIDISM OSTEOPOROSIS - Plan Plan: low fat diet bronchodilators as needed safety precautions psych f/u continue current plan of care
--- NOTE | 2017-04-23 21:01 | Progress Notes ---
DATE: 04/23/2017 SUBJECTIVE: The patient was seen, chart reviewed, and discussed with staff. The patient is currently in the hospital, still bizarre, making bizarre statements, "I don't think that you should make love to machines." Talking about children in her room, talking about children now being tucked into the bed, wanting to sign some papers. There are no papers to sign. Refusing medications, unclear as to why, disorganized, disoriented, bizarre, nonsensical statements, . ASSESSMENT: The patient remains symptomatic, delusional, bizarre, still with behavioral disturbances, and refusing treatment. PLAN: Currently pending a [place] petition. Given her ongoing symptoms, she is not safe for discharge. [facility]# [id number]
[2017-04-24] MEDS: Levothyroxine 0.025 Mg Tab PO SCH (06:42)
[2017-04-24] MEDS: Multivitamin w/ Minerals Tab PO SCH (08:25)
[2017-04-24] MEDS: Calcium Carb/Vit D 500 mg/200 U Tab PO SCH (08:26)
[2017-04-24] MEDS: Polyvinyl Alcohol Ophth Soln 15 mL Bottle EACH EYE SCH ×2 (08:29→17:10)
--- NOTE | 2017-04-24 12:52 | Internal Medicine Prog Note ---
Internal Medicine Subjective - Subjective Service Date: 04/24/17 Patient is:: awake, confused Per staff patient has:: tolerating meds Internal Medicine Objective - Results Result Diagrams: 04/18/17 14:00 04/18/17 14:00 Recent Labs: Laboratory Last Values WBC 8.7 Th/cmm (4.8-10.8) 04/18/17 14:00 RBC 4.79 Mil/cmm (3.80-5.20) 04/18/17 14:00 Hgb 14.2 gm/dL (12-16) D 04/18/17 14:00 Hct 43.4 % (41.0-60) D 04/18/17 14:00 MCV 90.6 fl (81-100) 04/18/17 14:00 MCH 29.6 pg (27.0-31.0) 04/18/17 14:00 MCHC Differential 32.7 pg (28.0-36.0) 04/18/17 14:00 RDW 12.9 % (11.5-20.0) 04/18/17 14:00 Plt Count 324 Th/cmm (150-400) 04/18/17 14:00 MPV 8.2 fl 04/18/17 14:00 Neutrophils % 55.5 % (40.0-80.0) 04/18/17 14:00 Lymphocytes % 32.8 % (20.0-50.0) 04/18/17 14:00 Monocytes % 8.2 % (2.0-10.0) 04/18/17 14:00 Eosinophils % 2.9 % (0.0-5.0) 04/18/17 14:00 Basophils % 0.6 % (0.0-2.0) 04/18/17 14:00 Sodium 137 mEq/L (136-145) 04/18/17 14:00 Potassium 5.2 mEq/L (3.5-5.1) H 04/18/17 14:00 Chloride 107 mEq/L (98-107) 04/18/17 14:00 Carbon Dioxide 24.1 mEq/L (21.0-31.0) 04/18/17 14:00 Anion Gap 11.1 (7.0-16.0) 04/18/17 14:00 BUN 29 mg/dL (7-25) H 04/18/17 14:00 Creatinine 0.8 mg/dL (0.6-1.2) 04/18/17 14:00 Est GFR ( Amer) TNP 04/18/17 14:00 Est GFR (Non-Af Amer) TNP 04/18/17 14:00 BUN/Creatinine Ratio 36.3 04/18/17 14:00 Glucose 102 mg/dL (70-105) 04/18/17 14:00 Calcium 9.9 mg/dL (8.6-10.3) 04/18/17 14:00 Total Bilirubin 0.3 mg/dL (0.3-1.0) 04/18/17 14:00 AST 19 U/L (13-39) 04/18/17 14:00 ALT 14 U/L (7-52) 04/18/17 14:00 Alkaline Phosphatase 78 U/L (34-104) 04/18/17 14:00 Total Protein 6.8 gm/dL (6.0-8.3) 04/18/17 14:00 Albumin 4.0 gm/dL (3.7-5.3) 04/18/17 14:00 Globulin 2.8 gm/dL 04/18/17 14:00 Albumin/Globulin Ratio 1.4 (1.0-1.8) 04/18/17 14:00 Triglycerides 122 mg/dL (<150) 04/18/17 14:00 Cholesterol 143 mg/dL (<200) 04/18/17 14:00 LDL Cholesterol Direct 79 mg/dL (75-193) 04/18/17 14:00 HDL Cholesterol 48 mg/dL (23-92) 04/18/17 14:00 TSH 2.32 uIU/ml (0.34-5.60) 04/18/17 14:00 RPR NONREACTIVE (NONREACTIVE) 04/18/17 14:00 - Physical Exam Vitals and I&O: Vital Signs Temp 97.6 F 04/24/17 06:38 Pulse 88 04/24/17 11:34 Resp 19 04/24/17 11:34 BP 124/74 04/24/17 08:29 Pulse Ox 98 04/24/17 06:38 Intake & Output 04/23/17 04/24/17 04/24/17 18:59 06:59 18:59 Intake Total 920 Balance 920 Weight (lbs) 165 lb 11.2 oz Intake: Oral 920 Other: # Voids 3 # Bowel Movements 0 Active Medications: Current Medications Alendronate Sodium (Fosamax) 70 mg PO QSAT@0630 [facility] Stop: 06/24/17 06:29 Artificial Tears (Artificial Tears Ophth Soln) 1 drop EACH EYE BID KEV Stop: 06/18/17 08:59 Last Admin: 04/24/17 08:29 Dose: Not Given Artificial Tears (Artificial Tears Ophth Soln) 1 drop LEFT EYE 5XD PRN PRN Reason: ITCHING Stop: 06/19/17 07:55 Ascorbic Acid (Vitamin C) 500 mg PO DAILY K[facility] Stop: 06/18/17 08:59 Last Admin: 04/24/17 08:26 Dose: Not Given Bisacodyl (Dulcolax 10 Mg Supp) 10 mg RC DAILY PRN PRN Reason: Constipation Stop: 06/17/17 18:39 Calamine/Phenol (Calmoseptine) 1 appl TP QID PRN PRN Reason: Skin Irritation Stop: 06/19/17 15:41 Calcium/Vitamin D (Oscal W/Vitamin D) 1 tab PO DAILY KEV Stop: 06/18/17 08:59 Last Admin: 04/24/17 08:26 Dose: Not Given Carvedilol (Coreg) 6.25 mg PO BID KEV Stop: 06/18/17 08:59 Last Admin: 04/24/17 08:29 Dose: Not Given Docusate Sodium (Colace) 100 mg PO BID KEV Stop: 06/17/17 18:59 Last Admin: 04/24/17 08:25 Dose: Not Given Levothyroxine Sodium (Synthroid) 0.025 mg PO QDAC KEV Stop: 06/19/17 07:29 Last Admin: 04/24/17 06:42 Dose: 0.025 mg Mirtazapine (Remeron) 7.5 mg PO HS KEV PRN Reason: Protocol Stop: 06/17/17 20:59 Last Admin: 04/23/17 21:12 Dose: 7.5 mg Montelukast Sodium (Singulair) 10 mg PO HS KEV Stop: 06/17/17 20:59 Last Admin: 04/23/17 21:12 Dose: 10 mg Prednisone (Deltasone) 5 mg PO BID [facility] Stop: 06/18/17 08:59 Last Admin: 04/24/17 08:26 Dose: Not Given Quetiapine Fumarate (Seroquel) 25 mg PO HS [facility] PRN Reason: Protocol Stop: 06/17/17 20:59 Last Admin: 04/23/17 21:12 Dose: 25 mg Rivaroxaban (Xarelto) 10 mg PO DAILY [facility] Stop: 06/18/17 08:59 Last Admin: 04/24/17 08:26 Dose: Not Given Senna (Senna) 8.6 mg PO DAILY [facility] Stop: 06/18/17 08:59 Last Admin: 04/24/17 08:26 Dose: Not Given Simvastatin (Zocor) 20 mg PO HS [facility] Stop: 06/17/17 20:59 Last Admin: 04/23/17 21:12 Dose: 20 mg Sodium Phosphate (Fleet Enema) 135 ml RC DAILY PRN PRN Reason: CONSTIPATION Stop: 06/17/17 19:14 General: alert, demented HEENT: NC/AT, PERRLA Lungs: CTAB Cardiovascular: RRR, Normal S1, Normal S2, without murmur Abdomen: soft, non-tender, non-distended, positive bowel sound Extremities: excoriation Neurological: alert - Procedures Procedures: Procedures Procedure Code Date TANIA MUSC/FASCIA 20 SQ CM/< 28079 10/20/12 EXC LES SOFT TISSUE NEC 83.39 10/20/12 OPEN REDUC-INT FIX FEMUR 79.35 10/20/12 OTHER GROUP THERAPY 94.44 08/04/14 PACKED CELL TRANSFUSION 99.04 10/20/12 PARTIAL HIP REPLACEMENT 81.52 10/20/12 PARTIAL HIP REPLACEMENT 37052 10/20/12 RECREATIONAL THERAPY 93.81 12/29/11 TREAT THIGH FRACTURE 48083 10/20/12 Internal Medicine Assmt/Plan - Assessment Assessment: HTN ASTHMA COPD HYPERCHOLESTEREMIA DEMENTIA HYPERKALEMIA RENAL INSUFFICIENCY HYPOTHYROIDISM OSTEOPOROSIS - Plan Plan: low fat diet bronchodilators as needed safety precautions psych f/u continue current plan of care Nutritional Asmnt/Malnutr-PDOC - Dietary Evaluation Malnutrition Findings (Please click <Entered> for more info): Nutritional Asmnt/Malnutrition Start: 04/23/17 14: 56 Text: Status: Complete Freq: Document 04/23/17 14:56 GSUN (Rec: 04/23/17 15:06 [email or web address]) Nutritional Asmnt/Malnutrition Patient General Information Nutritional Screening Moderate Risk Screening Diagnosis Psychosis, dementia Pertinent Medical Hx/Surgical Hx HTN, asthma, COPD, hypercholesterolemia, debilitation, hypothyrodism Subjective Information 71 year old female from SNF. Visited pt during meal time, pt was awake however very confused. Observed pt sprinkling quinoa all over self, stating she is decorating a wedding. Pt report currently not hungry, however usually good appetited . Avg PO intake 75-100% of meals since adm, meeting nutritnioal needs. Observed Boost Plus on tray, not in diet order. Encouraged pt to at least drink oral supplement if not intended to eat, pt verbalized understood. CBW 165 .7lb via bedscale, pt report UBW 98lb, however pt apepar overweight, at least 130lb. No muscle/fat wasting noted. Current Diet Order/ [facility] soft chopped, fortified XAVIER, Resource 2.0 TID Pertinent Medications Vitamin c, Dulcolax, Oscal W/ Vitamin D, Colace, synthroid, Remeron, Seroqual, Senna, Fleet Enema Pertinent Labs Reviewed. Nutritional Hx/Data Height 5 ft 4 in Height (Calculated Centimeters) 162.6 Current Weight (lbs) 165 lb 11.2 oz Weight (Calculated Kilograms) 75.2 Weight (Calculated Grams) 68086.3 [place] Body Weight 120 Weight Status Overweight GI Symptoms Usual diet at home [facility]: mech soft, fortified XAVIER, thin, Resource 2.0 TID Skin Integrity/Comment: Deejay 16. Buttock reddened. Current %PO Good (75-100%) Estimated Nutritional Goals Calories/Kcals/Kg IBW 120lb/54.5kg Kcals Calculated 1363-1635kcal (25-30kcal/kg) Protein Calculated 55g (1g/kg) Fluid: ml 1363-1635ml (1ml/kcal) Nutritional Problem 1. Problem Problem No nutritinoal problem at this time. Intervention/Recommendation Comments 1. Continue with mech soft chopped with thin liquids. Avg PO itnake is adequate. 2. Nursing staff to provide supervision during meals. Pt observed sprinkling quinoa all over self. Encourage pt to at least drink oral supplement when poor solid food intake. 3. Recommend Boost TID in place of Resource 2.0 TID as [facility] does not carry this product. Expected Outcomes/Goals Expected Outcomes/Goals 1. PO intake to meet at least 75% of estimated nutritinoal needs.
--- NOTE | 2017-04-24 23:29 | Progress Notes ---
DATE: 04/24/2017 SUBJECTIVE: The patient was seen, chart reviewed, and discussed with staff. The patient is refusing interview and to talk to me. Still refusing her medications. Currently pending a [place] hearing. The patient remains bizarre, disorganized, making nonsensical statements, refusing care, too unstable to be discharged to a lower level of care. ASSESSMENT: The patient remains symptomatic, disorganized, bizarre, impulsive, unpredictable, still with behavioral disturbances. PLAN: We will continue to monitor. Given her ongoing symptoms, she is not safe for discharge at this time. [facility]# [id number]
[2017-04-25] MEDS: Levothyroxine 0.025 Mg Tab PO SCH (06:33)
[2017-04-25] MEDS: Calcium Carb/Vit D 500 mg/200 U Tab PO SCH (09:49)
[2017-04-25] MEDS: Multivitamin w/ Minerals Tab PO SCH (09:50)
[2017-04-25] MEDS: Polyvinyl Alcohol Ophth Soln 15 mL Bottle EACH EYE SCH ×2 (09:51→18:18)
--- NOTE | 2017-04-25 12:13 | Internal Medicine Prog Note ---
Internal Medicine Subjective - Subjective Service Date: 04/25/17 Patient is:: awake, confused Per staff patient has:: tolerating meds Internal Medicine Objective - Results Result Diagrams: 04/18/17 14:00 04/18/17 14:00 Recent Labs: Laboratory Last Values WBC 8.7 Th/cmm (4.8-10.8) 04/18/17 14:00 RBC 4.79 Mil/cmm (3.80-5.20) 04/18/17 14:00 Hgb 14.2 gm/dL (12-16) D 04/18/17 14:00 Hct 43.4 % (41.0-60) D 04/18/17 14:00 MCV 90.6 fl (81-100) 04/18/17 14:00 MCH 29.6 pg (27.0-31.0) 04/18/17 14:00 MCHC Differential 32.7 pg (28.0-36.0) 04/18/17 14:00 RDW 12.9 % (11.5-20.0) 04/18/17 14:00 Plt Count 324 Th/cmm (150-400) 04/18/17 14:00 MPV 8.2 fl 04/18/17 14:00 Neutrophils % 55.5 % (40.0-80.0) 04/18/17 14:00 Lymphocytes % 32.8 % (20.0-50.0) 04/18/17 14:00 Monocytes % 8.2 % (2.0-10.0) 04/18/17 14:00 Eosinophils % 2.9 % (0.0-5.0) 04/18/17 14:00 Basophils % 0.6 % (0.0-2.0) 04/18/17 14:00 Sodium 137 mEq/L (136-145) 04/18/17 14:00 Potassium 5.2 mEq/L (3.5-5.1) H 04/18/17 14:00 Chloride 107 mEq/L (98-107) 04/18/17 14:00 Carbon Dioxide 24.1 mEq/L (21.0-31.0) 04/18/17 14:00 Anion Gap 11.1 (7.0-16.0) 04/18/17 14:00 BUN 29 mg/dL (7-25) H 04/18/17 14:00 Creatinine 0.8 mg/dL (0.6-1.2) 04/18/17 14:00 Est GFR ( Amer) TNP 04/18/17 14:00 Est GFR (Non-Af Amer) TNP 04/18/17 14:00 BUN/Creatinine Ratio 36.3 04/18/17 14:00 Glucose 102 mg/dL (70-105) 04/18/17 14:00 Calcium 9.9 mg/dL (8.6-10.3) 04/18/17 14:00 Total Bilirubin 0.3 mg/dL (0.3-1.0) 04/18/17 14:00 AST 19 U/L (13-39) 04/18/17 14:00 ALT 14 U/L (7-52) 04/18/17 14:00 Alkaline Phosphatase 78 U/L (34-104) 04/18/17 14:00 Total Protein 6.8 gm/dL (6.0-8.3) 04/18/17 14:00 Albumin 4.0 gm/dL (3.7-5.3) 04/18/17 14:00 Globulin 2.8 gm/dL 04/18/17 14:00 Albumin/Globulin Ratio 1.4 (1.0-1.8) 04/18/17 14:00 Triglycerides 122 mg/dL (<150) 04/18/17 14:00 Cholesterol 143 mg/dL (<200) 04/18/17 14:00 LDL Cholesterol Direct 79 mg/dL (75-193) 04/18/17 14:00 HDL Cholesterol 48 mg/dL (23-92) 04/18/17 14:00 TSH 2.32 uIU/ml (0.34-5.60) 04/18/17 14:00 RPR NONREACTIVE (NONREACTIVE) 04/18/17 14:00 - Physical Exam Vitals and I&O: Vital Signs Temp 97.2 F 04/25/17 06:32 Pulse 82 04/25/17 09:49 Resp 20 04/25/17 06:32 BP 125/79 04/25/17 09:49 Pulse Ox 99 04/25/17 06:32 Intake & Output 04/24/17 04/25/17 04/25/17 18:59 06:59 18:59 Intake Total 700 120 Balance 700 120 Intake: Oral 700 120 Other: # Voids 2 3 Active Medications: Current Medications Alendronate Sodium (Fosamax) 70 mg PO QSAT@0630 KEV Stop: 06/24/17 06:29 Last Admin: 04/25/17 06:33 Dose: Not Given Artificial Tears (Artificial Tears Ophth Soln) 1 drop EACH EYE BID KEV Stop: 06/18/17 08:59 Last Admin: 04/25/17 09:51 Dose: 1 drop Artificial Tears (Artificial Tears Ophth Soln) 1 drop LEFT EYE 5XD PRN PRN Reason: ITCHING Stop: 06/19/17 07:55 Ascorbic Acid (Vitamin C) 500 mg PO DAILY KEV Stop: 06/18/17 08:59 Last Admin: 04/25/17 09:49 Dose: 500 mg Bisacodyl (Dulcolax 10 Mg Supp) 10 mg RC DAILY PRN PRN Reason: Constipation Stop: 06/17/17 18:39 Calamine/Phenol (Calmoseptine) 1 appl TP QID PRN PRN Reason: Skin Irritation Stop: 06/19/17 15:41 Calcium/Vitamin D (Oscal W/Vitamin D) 1 tab PO DAILY KEV Stop: 06/18/17 08:59 Last Admin: 04/25/17 09:49 Dose: Not Given Carvedilol (Coreg) 6.25 mg PO BID KEV Stop: 06/18/17 08:59 Last Admin: 04/25/17 09:49 Dose: 6.25 mg Docusate Sodium (Colace) 100 mg PO BID KEV Stop: 06/17/17 18:59 Last Admin: 04/25/17 09:49 Dose: 100 mg Levothyroxine Sodium (Synthroid) 0.025 mg PO QDAC KEV Stop: 06/19/17 07:29 Last Admin: 04/25/17 06:33 Dose: Not Given Mirtazapine (Remeron) 7.5 mg PO HS KEV PRN Reason: Protocol Stop: 06/17/17 20:59 Last Admin: 04/24/17 21:29 Dose: Not Given Montelukast Sodium (Singulair) 10 mg PO HS KEV Stop: 06/17/17 20:59 Last Admin: 04/24/17 21:29 Dose: Not Given Prednisone (Deltasone) 5 mg PO BID [facility] Stop: 06/18/17 08:59 Last Admin: 04/25/17 09:51 Dose: 5 mg Quetiapine Fumarate (Seroquel) 25 mg PO HS [facility] PRN Reason: Protocol Stop: 06/17/17 20:59 Last Admin: 04/24/17 21:28 Dose: Not Given Rivaroxaban (Xarelto) 10 mg PO DAILY [facility] Stop: 06/18/17 08:59 Last Admin: 04/25/17 09:51 Dose: 10 mg Senna (Senna) 8.6 mg PO DAILY [facility] Stop: 06/18/17 08:59 Last Admin: 04/25/17 09:51 Dose: 8.6 mg Simvastatin (Zocor) 20 mg PO HS [facility] Stop: 06/17/17 20:59 Last Admin: 04/24/17 21:28 Dose: Not Given Sodium Phosphate (Fleet Enema) 135 ml RC DAILY PRN PRN Reason: CONSTIPATION Stop: 06/17/17 19:14 General: alert, demented HEENT: NC/AT, PERRLA Lungs: CTAB Cardiovascular: RRR, Normal S1, Normal S2, without murmur Abdomen: soft, non-tender, non-distended, positive bowel sound Extremities: excoriation Neurological: alert - Procedures Procedures: Procedures Procedure Code Date TANIA MUSC/FASCIA 20 SQ CM/< 11361 10/20/12 EXC LES SOFT TISSUE NEC 83.39 10/20/12 OPEN REDUC-INT FIX FEMUR 79.35 10/20/12 OTHER GROUP THERAPY 94.44 08/04/14 PACKED CELL TRANSFUSION 99.04 10/20/12 PARTIAL HIP REPLACEMENT 81.52 10/20/12 PARTIAL HIP REPLACEMENT 39405 10/20/12 RECREATIONAL THERAPY 93.81 12/29/11 TREAT THIGH FRACTURE 88386 10/20/12 Internal Medicine Assmt/Plan - Assessment Assessment: HTN ASTHMA COPD HYPERCHOLESTEREMIA DEMENTIA HYPERKALEMIA RENAL INSUFFICIENCY HYPOTHYROIDISM OSTEOPOROSIS - Plan Plan: low fat diet bronchodilators as needed safety precautions psych f/u continue current plan of care Nutritional Asmnt/Malnutr-PDOC - Dietary Evaluation Malnutrition Findings (Please click <Entered> for more info): Nutritional Asmnt/Malnutrition Start: 04/23/17 14: 56 Text: Status: Complete Freq: Document 04/23/17 14:56 GSUN (Rec: 04/23/17 15:06 [email or web address]) Nutritional Asmnt/Malnutrition Patient General Information Nutritional Screening Moderate Risk Screening Diagnosis Psychosis, dementia Pertinent Medical Hx/Surgical Hx HTN, asthma, COPD, hypercholesterolemia, debilitation, hypothyrodism Subjective Information 71 year old female from SNF. Visited pt during meal time, pt was awake however very confused. Observed pt sprinkling quinoa all over self, stating she is decorating a wedding. Pt report currently not hungry, however usually good appetited . Avg PO intake 75-100% of meals since adm, meeting nutritnioal needs. Observed Boost Plus on tray, not in diet order. Encouraged pt to at least drink oral supplement if not intended to eat, pt verbalized understood. CBW 165 .7lb via bedscale, pt report UBW 98lb, however pt apepar overweight, at least 130lb. No muscle/fat wasting noted. Current Diet Order/ Nutrition Support [facility] soft chopped, fortified XAVIER, Resource 2.0 TID Pertinent Medications Vitamin c, Dulcolax, Oscal W/ Vitamin D, Colace, synthroid, Remeron, Seroqual, Senna, Fleet Enema Pertinent Labs Reviewed. Nutritional Hx/Data Height 5 ft 4 in Height (Calculated Centimeters) 162.6 Current Weight (lbs) 165 lb 11.2 oz Weight (Calculated Kilograms) 75.2 Weight (Calculated Grams) 36594.3 [place] Body Weight 120 Weight Status Overweight GI Symptoms Usual diet at home [facility]: [facility] soft, fortified XAVIER, thin, Resource 2.0 TID Skin Integrity/Comment: Deejay 16. Buttock reddened. Current %PO Good (75-100%) Estimated Nutritional Goals Calories/Kcals/Kg IBW 120lb/54.5kg Kcals Calculated 1363-1635kcal (25-30kcal/kg) Protein Calculated 55g (1g/kg) Fluid: ml 1363-1635ml (1ml/kcal) Nutritional Problem 1. Problem Problem No nutritinoal problem at this time. Intervention/Recommendation Comments 1. Continue with mech soft chopped with thin liquids. Avg PO itnake is adequate. 2. Nursing staff to provide supervision during meals. Pt observed sprinkling quinoa all over self. Encourage pt to at least drink oral supplement when poor solid food intake. 3. Recommend Boost TID in place of Resource 2.0 TID as [facility] does not carry this product. Expected Outcomes/Goals Expected Outcomes/Goals 1. PO intake to meet at least 75% of estimated nutritinoal needs.
--- NOTE | 2017-04-25 20:43 | Progress Notes ---
DATE: This is Dr. Guillen covering for Dr. Breaux. SUBJECTIVE: The patient was seen and evaluated. The patient's chart reviewed. The patient's nursing staff reported the patient has been refusing, ____, very disorganized. Today on [id number] evaluation, the patient presents very irritable, agitated, starts cursing, observed to be responding very labile. MENTAL STATUS EXAMINATION: Responding command-type hallucinations, irritable, easily agitated, unable to formulate a safe plan outside the structured environment. ASSESSMENT AND PLAN: The patient is a 71-year-old female who continues to be easily disorganized, psychotic, unable to formulate a safe plan outside the structured environment, continues to refuse medications. Due to the patient's active psychotic symptoms and refusing medications, pending Riese unable to formulate a safe plan outside a structured environment. JOB# [id number]
[2017-04-26] MEDS: Levothyroxine 0.025 Mg Tab PO SCH (06:41)
[2017-04-26] MEDS: Calcium Carb/Vit D 500 mg/200 U Tab PO SCH (08:54)
[2017-04-26] MEDS: Multivitamin w/ Minerals Tab PO SCH (08:54)
[2017-04-26] MEDS: Polyvinyl Alcohol Ophth Soln 15 mL Bottle EACH EYE SCH ×2 (08:55→17:09)
--- NOTE | 2017-04-26 15:01 | Internal Medicine Prog Note ---
Internal Medicine Subjective - Subjective Service Date: 04/26/17 Patient is:: awake, confused Per staff patient has:: tolerating meds Internal Medicine Objective - Results Result Diagrams: 04/18/17 14:00 04/18/17 14:00 Recent Labs: Laboratory Last Values WBC 8.7 Th/cmm (4.8-10.8) 04/18/17 14:00 RBC 4.79 Mil/cmm (3.80-5.20) 04/18/17 14:00 Hgb 14.2 gm/dL (12-16) D 04/18/17 14:00 Hct 43.4 % (41.0-60) D 04/18/17 14:00 MCV 90.6 fl (81-100) 04/18/17 14:00 MCH 29.6 pg (27.0-31.0) 04/18/17 14:00 MCHC Differential 32.7 pg (28.0-36.0) 04/18/17 14:00 RDW 12.9 % (11.5-20.0) 04/18/17 14:00 Plt Count 324 Th/cmm (150-400) 04/18/17 14:00 MPV 8.2 fl 04/18/17 14:00 Neutrophils % 55.5 % (40.0-80.0) 04/18/17 14:00 Lymphocytes % 32.8 % (20.0-50.0) 04/18/17 14:00 Monocytes % 8.2 % (2.0-10.0) 04/18/17 14:00 Eosinophils % 2.9 % (0.0-5.0) 04/18/17 14:00 Basophils % 0.6 % (0.0-2.0) 04/18/17 14:00 Sodium 137 mEq/L (136-145) 04/18/17 14:00 Potassium 5.2 mEq/L (3.5-5.1) H 04/18/17 14:00 Chloride 107 mEq/L (98-107) 04/18/17 14:00 Carbon Dioxide 24.1 mEq/L (21.0-31.0) 04/18/17 14:00 Anion Gap 11.1 (7.0-16.0) 04/18/17 14:00 BUN 29 mg/dL (7-25) H 04/18/17 14:00 Creatinine 0.8 mg/dL (0.6-1.2) 04/18/17 14:00 Est GFR ( Amer) TNP 04/18/17 14:00 Est GFR (Non-Af Amer) TNP 04/18/17 14:00 BUN/Creatinine Ratio 36.3 04/18/17 14:00 Glucose 102 mg/dL (70-105) 04/18/17 14:00 Calcium 9.9 mg/dL (8.6-10.3) 04/18/17 14:00 Total Bilirubin 0.3 mg/dL (0.3-1.0) 04/18/17 14:00 AST 19 U/L (13-39) 04/18/17 14:00 ALT 14 U/L (7-52) 04/18/17 14:00 Alkaline Phosphatase 78 U/L (34-104) 04/18/17 14:00 Total Protein 6.8 gm/dL (6.0-8.3) 04/18/17 14:00 Albumin 4.0 gm/dL (3.7-5.3) 04/18/17 14:00 Globulin 2.8 gm/dL 04/18/17 14:00 Albumin/Globulin Ratio 1.4 (1.0-1.8) 04/18/17 14:00 Triglycerides 122 mg/dL (<150) 04/18/17 14:00 Cholesterol 143 mg/dL (<200) 04/18/17 14:00 LDL Cholesterol Direct 79 mg/dL (75-193) 04/18/17 14:00 HDL Cholesterol 48 mg/dL (23-92) 04/18/17 14:00 TSH 2.32 uIU/ml (0.34-5.60) 04/18/17 14:00 RPR NONREACTIVE (NONREACTIVE) 04/18/17 14:00 - Physical Exam Vitals and I&O: Vital Signs Temp 98.1 F 04/26/17 06:36 Pulse 64 04/26/17 12:44 Resp 20 04/26/17 12:44 BP 146/83 04/26/17 08:54 Pulse Ox 98 04/26/17 06:36 Intake & Output 04/25/17 04/26/17 04/26/17 18:59 06:59 18:59 Intake Total 700 480 Balance 700 480 Intake: Oral 700 480 Other: # Voids 2 1 # Bowel Movements 2 Stool Characteristics Soft Soft Active Medications: Current Medications Alendronate Sodium (Fosamax) 70 mg PO QSAT@0630 KEV Stop: 06/24/17 06:29 Last Admin: 04/25/17 06:33 Dose: Not Given Artificial Tears (Artificial Tears Ophth Soln) 1 drop EACH EYE BID KEV Stop: 06/18/17 08:59 Last Admin: 04/26/17 08:55 Dose: 1 drop Artificial Tears (Artificial Tears Ophth Soln) 1 drop LEFT EYE 5XD PRN PRN Reason: ITCHING Stop: 06/19/17 07:55 Ascorbic Acid (Vitamin C) 500 mg PO DAILY KEV Stop: 06/18/17 08:59 Last Admin: 04/26/17 08:54 Dose: 500 mg Bisacodyl (Dulcolax 10 Mg Supp) 10 mg RC DAILY PRN PRN Reason: Constipation Stop: 06/17/17 18:39 Calamine/Phenol (Calmoseptine) 1 appl TP QID PRN PRN Reason: Skin Irritation Stop: 06/19/17 15:41 Calcium/Vitamin D (Oscal W/Vitamin D) 1 tab PO DAILY KEV Stop: 06/18/17 08:59 Last Admin: 04/26/17 08:54 Dose: 1 tab Carvedilol (Coreg) 6.25 mg PO BID KEV Stop: 06/18/17 08:59 Last Admin: 04/26/17 08:54 Dose: 6.25 mg Docusate Sodium (Colace) 100 mg PO BID KEV Stop: 06/17/17 18:59 Last Admin: 04/26/17 10:08 Dose: 100 mg Levothyroxine Sodium (Synthroid) 0.025 mg PO QDAC KEV Stop: 06/19/17 07:29 Last Admin: 04/26/17 06:41 Dose: 0.025 mg Mirtazapine (Remeron) 7.5 mg PO HS KEV PRN Reason: Protocol Stop: 06/17/17 20:59 Last Admin: 04/25/17 22:09 Dose: Not Given Montelukast Sodium (Singulair) 10 mg PO HS KEV Stop: 06/17/17 20:59 Last Admin: 04/25/17 22:09 Dose: Not Given Prednisone (Deltasone) 5 mg PO BID [facility] Stop: 06/18/17 08:59 Last Admin: 04/26/17 08:54 Dose: 5 mg Quetiapine Fumarate (Seroquel) 25 mg PO HS KEV PRN Reason: Protocol Stop: 06/17/17 20:59 Last Admin: 04/25/17 22:10 Dose: Not Given Rivaroxaban (Xarelto) 10 mg PO DAILY [facility] Stop: 06/18/17 08:59 Last Admin: 04/26/17 08:54 Dose: 10 mg Senna (Senna) 8.6 mg PO DAILY [facility] Stop: 06/18/17 08:59 Last Admin: 04/26/17 08:54 Dose: 8.6 mg Simvastatin (Zocor) 20 mg PO HS [facility] Stop: 06/17/17 20:59 Last Admin: 04/25/17 22:10 Dose: Not Given Sodium Phosphate (Fleet Enema) 135 ml RC DAILY PRN PRN Reason: CONSTIPATION Stop: 06/17/17 19:14 General: alert, demented HEENT: NC/AT, PERRLA Lungs: CTAB Cardiovascular: RRR, Normal S1, Normal S2, without murmur Abdomen: soft, non-tender, non-distended, positive bowel sound Extremities: excoriation Neurological: alert - Procedures Procedures: Procedures Procedure Code Date TANIA MUSC/FASCIA 20 SQ CM/< 34744 10/20/12 EXC LES SOFT TISSUE NEC 83.39 10/20/12 OPEN REDUC-INT FIX FEMUR 79.35 10/20/12 OTHER GROUP THERAPY 94.44 08/04/14 PACKED CELL TRANSFUSION 99.04 10/20/12 PARTIAL HIP REPLACEMENT 81.52 10/20/12 PARTIAL HIP REPLACEMENT 28541 10/20/12 RECREATIONAL THERAPY 93.81 12/29/11 TREAT THIGH FRACTURE 73867 10/20/12 Internal Medicine Assmt/Plan - Assessment Assessment: HTN ASTHMA COPD HYPERCHOLESTEREMIA DEMENTIA HYPERKALEMIA RENAL INSUFFICIENCY HYPOTHYROIDISM OSTEOPOROSIS - Plan Plan: low fat diet bronchodilators as needed safety precautions psych f/u continue current plan of care Nutritional Asmnt/Malnutr-PDOC - Dietary Evaluation Malnutrition Findings (Please click <Entered> for more info): Nutritional Asmnt/Malnutrition Start: 04/23/17 14: 56 Text: Status: Complete Freq: Document 10/12/17 14:56 SUSSY (Rec: 04/23/17 15:06 GSUN [email or web address]) Nutritional Asmnt/Malnutrition Patient General Information Nutritional Screening Moderate Risk Screening Diagnosis Psychosis, dementia Pertinent Medical Hx/Surgical Hx HTN, asthma, COPD, hypercholesterolemia, debilitation, hypothyrodism Subjective Information 71 year old female from SNF. Visited pt during meal time, pt was awake however very confused. Observed pt sprinkling quinoa all over self, stating she is decorating a wedding. Pt report currently not hungry, however usually good appetited . Avg PO intake 75-100% of meals since adm, meeting nutritnioal needs. Observed Boost Plus on tray, not in diet order. Encouraged pt to at least drink oral supplement if not intended to eat, pt verbalized understood. CBW 165 .7lb via bedscale, pt report UBW 98lb, however pt apepar overweight, at least 130lb. No muscle/fat wasting noted. [facility] Diet [facility] fortified XAVIER, Resource 2.0 TID Pertinent Medications Vitamin c, Dulcolax, Oscal W/ Vitamin D, Colace, synthroid, Remeron, Seroqual, Senna, Fleet Enema Pertinent Labs Reviewed. Nutritional Hx/Data Height 5 ft 4 in Height (Calculated Centimeters) 162.6 Current Weight (lbs) 165 lb 11.2 oz Weight (Calculated Kilograms) 75.2 Weight (Calculated Grams) 52624.3 [place] Body Weight 120 Weight Status Overweight GI Symptoms Usual diet at home Louisa Willis: mech soft, fortified XAVIER, thin, Resource 2.0 TID Skin Integrity/Comment: Deejay 16. Buttock reddened. Current %PO Good (75-100%) Estimated Nutritional Goals Calories/Kcals/Kg IBW 120lb/54.5kg Kcals Calculated 1363-1635kcal (25-30kcal/kg) Protein Calculated 55g (1g/kg) Fluid: ml 1363-1635ml (1ml/kcal) Nutritional Problem 1. Problem Problem No nutritinoal problem at this time. Intervention/Recommendation Comments 1. Continue with mech soft chopped with thin liquids. Avg PO itnake is adequate. 2. Nursing staff to provide supervision during meals. Pt observed sprinkling quinoa all over self. Encourage pt to at least drink oral supplement when poor solid food intake. 3. Recommend Boost TID in place of Resource 2.0 TID as [facility] does not carry this product. Expected Outcomes/Goals Expected Outcomes/Goals 1. PO intake to meet at least 75% of estimated nutritinoal needs.
--- NOTE | 2017-04-27 00:22 | Progress Notes ---
DATE: SUBJECTIVE: The patient was seen and evaluated. The patient's chart reviewed. Vital signs reviewed and stable. Overnight nursing staff reporting the patient continues to refuse medications, easily irritable, agitated. Today, on [id number] evaluation, the patient is easily awakened from her sleep, becomes very irritable and agitated. She is observed to be responding. When attempting to validate her emotions in regards to the compliance with medications, she becomes more irritable. MENTAL STATUS EXAMINATION: Paranoid, delusional, refusing medications, poor insight, judgment and impulse control. ASSESSMENT AND PLAN: The patient is a 71-year-old female who continues to be easily paranoid, suspicious, and refusing medications, pending Riese tomorrow. JOB# [id number]
[2017-04-27] MEDS: Levothyroxine 0.025 Mg Tab PO SCH (06:48)
[2017-04-27] MEDS: Multivitamin w/ Minerals Tab PO SCH (09:34)
[2017-04-27] MEDS: Calcium Carb/Vit D 500 mg/200 U Tab PO SCH (09:34)
[2017-04-27] MEDS: Polyvinyl Alcohol Ophth Soln 15 mL Bottle EACH EYE SCH (09:46)
[2017-04-27] MEDS ORDERED: Haloperidol Lactate 5 mg/mL 1mL Vial IM PRN (09:59)
--- NOTE | 2017-04-27 14:42 | Internal Medicine Prog Note ---
Internal Medicine Subjective - Subjective Service Date: 04/27/17 Patient is:: awake, confused Per staff patient has:: tolerating meds Internal Medicine Objective - Results Result Diagrams: 04/18/17 14:00 04/18/17 14:00 Recent Labs: Laboratory Last Values WBC 8.7 Th/cmm (4.8-10.8) 04/18/17 14:00 RBC 4.79 Mil/cmm (3.80-5.20) 04/18/17 14:00 Hgb 14.2 gm/dL (12-16) D 04/18/17 14:00 Hct 43.4 % (41.0-60) D 04/18/17 14:00 MCV 90.6 fl (81-100) 04/18/17 14:00 MCH 29.6 pg (27.0-31.0) 04/18/17 14:00 MCHC Differential 32.7 pg (28.0-36.0) 04/18/17 14:00 RDW 12.9 % (11.5-20.0) 04/18/17 14:00 Plt Count 324 Th/cmm (150-400) 04/18/17 14:00 MPV 8.2 fl 04/18/17 14:00 Neutrophils % 55.5 % (40.0-80.0) 04/18/17 14:00 Lymphocytes % 32.8 % (20.0-50.0) 04/18/17 14:00 Monocytes % 8.2 % (2.0-10.0) 04/18/17 14:00 Eosinophils % 2.9 % (0.0-5.0) 04/18/17 14:00 Basophils % 0.6 % (0.0-2.0) 04/18/17 14:00 Sodium 137 mEq/L (136-145) 04/18/17 14:00 Potassium 5.2 mEq/L (3.5-5.1) H 04/18/17 14:00 Chloride 107 mEq/L (98-107) 04/18/17 14:00 Carbon Dioxide 24.1 mEq/L (21.0-31.0) 04/18/17 14:00 Anion Gap 11.1 (7.0-16.0) 04/18/17 14:00 BUN 29 mg/dL (7-25) H 04/18/17 14:00 Creatinine 0.8 mg/dL (0.6-1.2) 04/18/17 14:00 Est GFR ( Amer) TNP 04/18/17 14:00 Est GFR (Non-Af Amer) TNP 04/18/17 14:00 BUN/Creatinine Ratio 36.3 04/18/17 14:00 Glucose 102 mg/dL (70-105) 04/18/17 14:00 Calcium 9.9 mg/dL (8.6-10.3) 04/18/17 14:00 Total Bilirubin 0.3 mg/dL (0.3-1.0) 04/18/17 14:00 AST 19 U/L (13-39) 04/18/17 14:00 ALT 14 U/L (7-52) 04/18/17 14:00 Alkaline Phosphatase 78 U/L (34-104) 04/18/17 14:00 Total Protein 6.8 gm/dL (6.0-8.3) 04/18/17 14:00 Albumin 4.0 gm/dL (3.7-5.3) 04/18/17 14:00 Globulin 2.8 gm/dL 04/18/17 14:00 Albumin/Globulin Ratio 1.4 (1.0-1.8) 04/18/17 14:00 Triglycerides 122 mg/dL (<150) 04/18/17 14:00 Cholesterol 143 mg/dL (<200) 04/18/17 14:00 LDL Cholesterol Direct 79 mg/dL (75-193) 04/18/17 14:00 HDL Cholesterol 48 mg/dL (23-92) 04/18/17 14:00 TSH 2.32 uIU/ml (0.34-5.60) 04/18/17 14:00 RPR NONREACTIVE (NONREACTIVE) 04/18/17 14:00 - Physical Exam Vitals and I&O: Vital Signs Temp 97.6 F 04/27/17 06:22 Pulse 65 04/27/17 09:35 Resp 20 04/27/17 06:22 BP 120/61 04/27/17 09:35 Pulse Ox 96 04/27/17 06:22 Intake & Output 04/26/17 04/27/17 04/27/17 18:59 06:59 18:59 Intake Total 800 120 Balance 800 120 Intake: Oral 800 120 Other: # Voids 3 3 # Bowel Movements 0 Stool Characteristics Soft Soft Active Medications: Current Medications Alendronate Sodium (Fosamax) 70 mg PO QSAT@0630 [facility] Stop: 06/24/17 06:29 Last Admin: 04/25/17 06:33 Dose: Not Given Artificial Tears (Artificial Tears Ophth Soln) 1 drop EACH EYE BID K[facility] Stop: 06/18/17 08:59 Last Admin: 04/27/17 09:46 Dose: Not Given Artificial Tears (Artificial Tears Ophth Soln) 1 drop LEFT EYE 5XD PRN PRN Reason: ITCHING Stop: 06/19/17 07:55 Ascorbic Acid (Vitamin C) 500 mg PO DAILY [facility] Stop: 06/18/17 08:59 Last Admin: 04/27/17 09:34 Dose: Not Given Bisacodyl (Dulcolax 10 Mg Supp) 10 mg RC DAILY PRN PRN Reason: Constipation Stop: 06/17/17 18:39 Last Admin: 04/26/17 18:36 Dose: 10 mg Calamine/Phenol (Calmoseptine) 1 appl TP QID PRN PRN Reason: Skin Irritation Stop: 06/19/17 15:41 Calcium/Vitamin D (Oscal W/Vitamin D) 1 tab PO DAILY [facility] Stop: 06/18/17 08:59 Last Admin: 04/27/17 09:34 Dose: Not Given Carvedilol (Coreg) 6.25 mg PO BID [facility] Stop: 06/18/17 08:59 Last Admin: 04/27/17 09:35 Dose: Not Given Docusate Sodium (Colace) 100 mg PO BID [facility] Stop: 06/17/17 18:59 Last Admin: 04/27/17 09:34 Dose: Not Given Haloperidol Lactate (Haldol) 1 mg IM HS PRN PRN Reason: Agitation Stop: 06/26/17 09:58 Levothyroxine Sodium (Synthroid) 0.025 mg PO QDAC [facility] Stop: 06/19/17 07:29 Last Admin: 04/27/17 06:48 Dose: 0.025 mg Mirtazapine (Remeron) 7.5 mg PO HS KEV PRN Reason: Protocol Stop: 06/17/17 20:59 Last Admin: 04/26/17 20:35 Dose: 7.5 mg Montelukast Sodium (Singulair) 10 mg PO HS [facility] Stop: 06/17/17 20:59 Last Admin: 04/26/17 20:35 Dose: 10 mg Prednisone (Deltasone) 5 mg PO BID [facility] Stop: 06/18/17 08:59 Last Admin: 04/27/17 09:35 Dose: Not Given Quetiapine Fumarate (Seroquel) 25 mg PO HS [facility] PRN Reason: Protocol Stop: 06/17/17 20:59 Last Admin: 04/26/17 20:36 Dose: 25 mg Rivaroxaban (Xarelto) 10 mg PO DAILY [facility] Stop: 06/18/17 08:59 Last Admin: 04/27/17 09:33 Dose: Not Given Senna (Senna) 8.6 mg PO DAILY [facility] Stop: 06/18/17 08:59 Last Admin: 04/27/17 09:34 Dose: Not Given Simvastatin (Zocor) 20 mg PO HS [facility] Stop: 06/17/17 20:59 Last Admin: 04/26/17 20:36 Dose: 20 mg Sodium Phosphate (Fleet Enema) 135 ml RC DAILY PRN PRN Reason: CONSTIPATION Stop: 06/17/17 19:14 General: alert, demented HEENT: NC/AT, PERRLA Lungs: CTAB Cardiovascular: RRR, Normal S1, Normal S2, without murmur Abdomen: soft, non-tender, non-distended, positive bowel sound Extremities: excoriation Neurological: alert - Procedures Procedures: Procedures Procedure Code Date TANIA MUSC/FASCIA 20 SQ CM/< 38926 10/20/12 EXC LES SOFT TISSUE NEC 83.39 10/20/12 OPEN REDUC-INT FIX FEMUR 79.35 10/20/12 OTHER GROUP THERAPY 94.44 08/04/14 PACKED CELL TRANSFUSION 99.04 10/20/12 PARTIAL HIP REPLACEMENT 81.52 10/20/12 PARTIAL HIP REPLACEMENT 73516 10/20/12 RECREATIONAL THERAPY 93.81 12/29/11 TREAT THIGH FRACTURE 35300 10/20/12 Internal Medicine Assmt/Plan - Assessment Assessment: HTN ASTHMA COPD HYPERCHOLESTEREMIA DEMENTIA HYPERKALEMIA RENAL INSUFFICIENCY HYPOTHYROIDISM OSTEOPOROSIS - Plan Plan: low fat diet bronchodilators as needed safety precautions psych f/u continue current plan of care Nutritional Asmnt/Malnutr-PDOC - Dietary Evaluation Malnutrition Findings (Please click <Entered> for more info): Nutritional Asmnt/Malnutrition Start: 04/23/17 14: 56 Text: Status: Complete Freq: Document 04/23/17 14:56 SUSSY (Rec: 04/23/17 15:06 MARCO AHUSSEIN PLAZAN-[email or web address]) Nutritional Asmnt/Malnutrition Patient General Information Nutritional Screening Moderate Risk Screening Diagnosis Psychosis, dementia Pertinent Medical Hx/Surgical Hx HTN, asthma, COPD, hypercholesterolemia, debilitation, hypothyrodism Subjective Information 71 year old female from SNF. Visited pt during meal time, pt was awake however very confused. Observed pt sprinkling quinoa all over self, stating she is decorating a wedding. Pt report currently not hungry, however usually good appetited . Avg PO intake 75-100% of meals since adm, meeting nutritnioal needs. Observed Boost Plus on tray, not in diet order. Encouraged pt to at least drink oral supplement if not intended to eat, pt verbalized understood. CBW 165 .7lb via bedscale, pt report UBW 98lb, however pt apepar overweight, at least 130lb. No muscle/fat wasting noted. Current Diet Order/ Nutrition Support Mech soft chopped, fortified XAVIER, Resource 2.0 TID Pertinent Medications Vitamin c, Dulcolax, Oscal W/ Vitamin D, Colace, synthroid, Remeron, Seroqual, Senna, Fleet Enema Pertinent Labs Reviewed. Nutritional Hx/Data Height 5 ft 4 in Height (Calculated Centimeters) 162.6 Current Weight (lbs) 165 lb 11.2 oz Weight (Calculated Kilograms) 75.2 Weight (Calculated Grams) 23702.3 [place] Body Weight 120 Weight Status Overweight GI Symptoms Usual diet at home [facility]: mech soft, fortified XAVIER, thin, Resource 2.0 TID Skin Integrity/Comment: Deejay 16. Buttock reddened. Current %PO Good (75-100%) Estimated Nutritional Goals Calories/Kcals/Kg IBW 120lb/54.5kg Kcals Calculated 1363-1635kcal (25-30kcal/kg) Protein Calculated 55g (1g/kg) Fluid: ml 1363-1635ml (1ml/kcal) Nutritional Problem 1. Problem Problem No nutritinoal problem at this time. Intervention/Recommendation Comments 1. Continue with mech soft chopped with thin liquids. Avg PO itnake is adequate. 2. Nursing staff to provide supervision during meals. Pt observed sprinkling quinoa all over self. Encourage pt to at least drink oral supplement when poor solid food intake. 3. Recommend Boost TID in place of Resource 2.0 TID as [facility] does not carry this product. Expected Outcomes/Goals Expected Outcomes/Goals 1. PO intake to meet at least 75% of estimated nutritinoal needs.
--- NOTE | 2017-04-27 20:27 | Consultation ---
DATE OF CONSULTATION: The patient was seen, chart reviewed, and discussed with staff. The patient continues to refuse medications, bizarre, nonsensical, talking about staff having sex with machine, does not take care of young children and giving no rational reason for refusing medications. Denying mental illness. Irritable. Still throwing things at staff, throwing things on the floor. Bizarre and disorganized. ASSESSMENT: The patient remains symptomatic, bizarre, nonsensical. Riese petition today was upheld. RECOMMENDATIONS: We will start Haldol backup given the severity of her ongoing symptoms. She is not safe for discharge. [facility]# [id number]
[2017-04-28] MEDS: Levothyroxine 0.025 Mg Tab PO SCH (06:34)
[2017-04-28] MEDS: Calcium Carb/Vit D 500 mg/200 U Tab PO SCH (08:03)
[2017-04-28] MEDS: Polyvinyl Alcohol Ophth Soln 15 mL Bottle EACH EYE SCH ×2 (08:03→16:04)
[2017-04-28] MEDS: Multivitamin w/ Minerals Tab PO SCH (08:03)
--- NOTE | 2017-04-28 12:35 | Internal Medicine Prog Note ---
Internal Medicine Subjective - Subjective Service Date: 04/28/17 Patient is:: awake, confused Per staff patient has:: tolerating meds Internal Medicine Objective - Results Result Diagrams: 04/18/17 14:00 04/18/17 14:00 Recent Labs: Laboratory Last Values WBC 8.7 Th/cmm (4.8-10.8) 04/18/17 14:00 RBC 4.79 Mil/cmm (3.80-5.20) 04/18/17 14:00 Hgb 14.2 gm/dL (12-16) D 04/18/17 14:00 Hct 43.4 % (41.0-60) D 04/18/17 14:00 MCV 90.6 fl (81-100) 04/18/17 14:00 MCH 29.6 pg (27.0-31.0) 04/18/17 14:00 MCHC Differential 32.7 pg (28.0-36.0) 04/18/17 14:00 RDW 12.9 % (11.5-20.0) 04/18/17 14:00 Plt Count 324 Th/cmm (150-400) 04/18/17 14:00 MPV 8.2 fl 04/18/17 14:00 Neutrophils % 55.5 % (40.0-80.0) 04/18/17 14:00 Lymphocytes % 32.8 % (20.0-50.0) 04/18/17 14:00 Monocytes % 8.2 % (2.0-10.0) 04/18/17 14:00 Eosinophils % 2.9 % (0.0-5.0) 04/18/17 14:00 Basophils % 0.6 % (0.0-2.0) 04/18/17 14:00 Sodium 137 mEq/L (136-145) 04/18/17 14:00 Potassium 5.2 mEq/L (3.5-5.1) H 04/18/17 14:00 Chloride 107 mEq/L (98-107) 04/18/17 14:00 Carbon Dioxide 24.1 mEq/L (21.0-31.0) 04/18/17 14:00 Anion Gap 11.1 (7.0-16.0) 04/18/17 14:00 BUN 29 mg/dL (7-25) H 04/18/17 14:00 Creatinine 0.8 mg/dL (0.6-1.2) 04/18/17 14:00 Est GFR ( Amer) TNP 04/18/17 14:00 Est GFR (Non-Af Amer) TNP 04/18/17 14:00 BUN/Creatinine Ratio 36.3 04/18/17 14:00 Glucose 102 mg/dL (70-105) 04/18/17 14:00 Calcium 9.9 mg/dL (8.6-10.3) 04/18/17 14:00 Total Bilirubin 0.3 mg/dL (0.3-1.0) 04/18/17 14:00 AST 19 U/L (13-39) 04/18/17 14:00 ALT 14 U/L (7-52) 04/18/17 14:00 Alkaline Phosphatase 78 U/L (34-104) 04/18/17 14:00 Total Protein 6.8 gm/dL (6.0-8.3) 04/18/17 14:00 Albumin 4.0 gm/dL (3.7-5.3) 04/18/17 14:00 Globulin 2.8 gm/dL 04/18/17 14:00 Albumin/Globulin Ratio 1.4 (1.0-1.8) 04/18/17 14:00 Triglycerides 122 mg/dL (<150) 04/18/17 14:00 Cholesterol 143 mg/dL (<200) 04/18/17 14:00 LDL Cholesterol Direct 79 mg/dL (75-193) 04/18/17 14:00 HDL Cholesterol 48 mg/dL (23-92) 04/18/17 14:00 TSH 2.32 uIU/ml (0.34-5.60) 04/18/17 14:00 RPR NONREACTIVE (NONREACTIVE) 04/18/17 14:00 - Physical Exam Vitals and I&O: Vital Signs Temp 98 F 04/28/17 06:13 Pulse 71 04/28/17 06:13 Resp 19 04/28/17 06:13 BP 136/90 04/28/17 06:13 Pulse Ox 95 04/28/17 06:13 Intake & Output 04/27/17 04/28/17 04/28/17 18:59 06:59 18:59 Intake Total 2400 120 Balance 2400 120 Intake: Oral 2400 120 Other: # Voids 4 1 # Bowel Movements 0 Stool Characteristics Soft Active Medications: Current Medications Alendronate Sodium (Fosamax) 70 mg PO QSAT@0630 [facility] Stop: 06/24/17 06:29 Last Admin: 04/25/17 06:33 Dose: Not Given Artificial Tears (Artificial Tears Ophth Soln) 1 drop EACH EYE BID [facility] Stop: 06/18/17 08:59 Last Admin: 04/28/17 08:03 Dose: Not Given Artificial Tears (Artificial Tears Ophth Soln) 1 drop LEFT EYE 5XD PRN PRN Reason: ITCHING Stop: 06/19/17 07:55 Ascorbic Acid (Vitamin C) 500 mg PO DAILY [facility] Stop: 06/18/17 08:59 Last Admin: 04/28/17 08:03 Dose: Not Given Bisacodyl (Dulcolax 10 Mg Supp) 10 mg RC DAILY PRN PRN Reason: Constipation Stop: 06/17/17 18:39 Last Admin: 04/26/17 18:36 Dose: 10 mg Calamine/Phenol (Calmoseptine) 1 appl TP QID PRN PRN Reason: Skin Irritation Stop: 06/19/17 15:41 Calcium/Vitamin D (Oscal W/Vitamin D) 1 tab PO DAILY [facility] Stop: 06/18/17 08:59 Last Admin: 04/28/17 08:03 Dose: Not Given Carvedilol (Coreg) 6.25 mg PO BID [facility] Stop: 06/18/17 08:59 Last Admin: 04/28/17 08:03 Dose: Not Given Docusate Sodium (Colace) 100 mg PO BID [facility] Stop: 06/17/17 18:59 Last Admin: 04/28/17 08:03 Dose: Not Given Haloperidol Lactate (Haldol) 1 mg IM HS PRN PRN Reason: Agitation Stop: 06/26/17 09:58 Levothyroxine Sodium (Synthroid) 0.025 mg PO QDAC [facility] Stop: 06/19/17 07:29 Last Admin: 04/28/17 06:34 Dose: 0.025 mg Mirtazapine (Remeron) 7.5 mg PO HS [facility] PRN Reason: Protocol Stop: 06/17/17 20:59 Last Admin: 04/27/17 21:05 Dose: 7.5 mg Montelukast Sodium (Singulair) 10 mg PO HS [facility] Stop: 06/17/17 20:59 Last Admin: 04/27/17 21:06 Dose: 10 mg Prednisone (Deltasone) 5 mg PO BID [facility] Stop: 06/18/17 08:59 Last Admin: 04/28/17 08:03 Dose: Not Given Quetiapine Fumarate (Seroquel) 25 mg PO HS [facility] PRN Reason: Protocol Stop: 06/17/17 20:59 Last Admin: 04/27/17 21:06 Dose: 25 mg Rivaroxaban (Xarelto) 10 mg PO DAILY [facility] Stop: 06/18/17 08:59 Last Admin: 04/28/17 08:03 Dose: Not Given Senna (Senna) 8.6 mg PO DAILY [facility] Stop: 06/18/17 08:59 Last Admin: 04/28/17 08:04 Dose: Not Given Simvastatin (Zocor) 20 mg PO HS [facility] Stop: 06/17/17 20:59 Last Admin: 04/27/17 21:06 Dose: 20 mg Sodium Phosphate (Fleet Enema) 135 ml RC DAILY PRN PRN Reason: CONSTIPATION Stop: 06/17/17 19:14 General: alert, demented HEENT: NC/AT, PERRLA Lungs: CTAB Cardiovascular: RRR, Normal S1, Normal S2, without murmur Abdomen: soft, non-tender, non-distended, positive bowel sound Extremities: excoriation Neurological: alert - Procedures Procedures: Procedures Procedure Code Date TANIA MUSC/FASCIA 20 SQ CM/< 57018 10/20/12 EXC LES SOFT TISSUE NEC 83.39 10/20/12 OPEN REDUC-INT FIX FEMUR 79.35 10/20/12 OTHER GROUP THERAPY 94.44 08/04/14 PACKED CELL TRANSFUSION 99.04 10/20/12 PARTIAL HIP REPLACEMENT 81.52 10/20/12 PARTIAL HIP REPLACEMENT 72145 10/20/12 RECREATIONAL THERAPY 93.81 12/29/11 TREAT THIGH FRACTURE 63321 10/20/12 Internal Medicine Assmt/Plan - Assessment Assessment: HTN ASTHMA COPD HYPERCHOLESTEREMIA DEMENTIA HYPERKALEMIA RENAL INSUFFICIENCY HYPOTHYROIDISM OSTEOPOROSIS - Plan Plan: low fat diet bronchodilators as needed safety precautions psych f/u continue current plan of care Nutritional Asmnt/Malnutr-PDOC - Dietary Evaluation Malnutrition Findings (Please click <Entered> for more info): Nutritional Asmnt/Malnutrition Start: 04/23/17 14: 56 Text: Status: Complete Freq: Document 04/23/17 14:56 SUSSY (Rec: 04/23/17 15:06 MARCO AHUSSEIN PLAZAN-[email or web address]) Nutritional Asmnt/Malnutrition Patient General Information Nutritional Screening Moderate Risk Screening Diagnosis Psychosis, dementia Pertinent Medical Hx/Surgical Hx HTN, asthma, COPD, hypercholesterolemia, debilitation, hypothyrodism Subjective Information 71 year old female from SNF. Visited pt during meal time, pt was awake however very confused. Observed pt sprinkling quinoa all over self, stating she is decorating a wedding. Pt report currently not hungry, however usually good appetited . Avg PO intake 75-100% of meals since adm, meeting nutritnioal needs. Observed Boost Plus on tray, not in diet order. Encouraged pt to at least drink oral supplement if not intended to eat, pt verbalized understood. CBW 165 .7lb via bedscale, pt report UBW 98lb, however pt apepar overweight, at least 130lb. No muscle/fat wasting noted. Current Diet Order/ Nutrition Support Mech soft chopped, fortified XAVIER, Resource 2.0 TID Pertinent Medications Vitamin c, Dulcolax, Oscal W/ Vitamin D, Colace, synthroid, Remeron, Seroqual, Senna, Fleet Enema Pertinent Labs Reviewed. Nutritional Hx/Data Height 5 ft 4 in Height (Calculated Centimeters) 162.6 Current Weight (lbs) 165 lb 11.2 oz Weight (Calculated Kilograms) 75.2 Weight (Calculated Grams) 58575.3 [place] Body Weight 120 Weight Status Overweight GI Symptoms Usual diet at home [facility]: mech soft, fortified XAVIER, thin, Resource 2.0 TID Skin Integrity/Comment: Deejay 16. Buttock reddened. Current %PO Good (75-100%) Estimated Nutritional Goals Calories/Kcals/Kg IBW 120lb/54.5kg Kcals Calculated 1363-1635kcal (25-30kcal/kg) Protein Calculated 55g (1g/kg) Fluid: ml 1363-1635ml (1ml/kcal) Nutritional Problem 1. Problem Problem No nutritinoal problem at this time. Intervention/Recommendation Comments 1. Continue with mech soft chopped with thin liquids. Avg PO itnake is adequate. 2. Nursing staff to provide supervision during meals. Pt observed sprinkling quinoa all over self. Encourage pt to at least drink oral supplement when poor solid food intake. 3. Recommend Boost TID in place of Resource 2.0 TID as [facility] does not carry this product. Expected Outcomes/Goals Expected Outcomes/Goals 1. PO intake to meet at least 75% of estimated nutritinoal needs.
--- NOTE | 2017-04-28 21:24 | Progress Notes ---
DATE: 04/28/2017 SUBJECTIVE: The patient seen, chart reviewed, discussed with staff. The patient remains bizarre, nonsensical, still waxing and waning in mentation, staff noting that perhaps she is a little more clear in the evening hours. She did take her Seroquel last night, Riese was upheld. The patient remains odd making odd statements, still with some yelling episodes. She is not at her baseline. No side effects noted to the medications. ASSESSMENT: The patient remains symptomatic, still bizarre, making nonsensical and psychotic statements, still with evidence of psychosis. PLAN: Increase Seroquel today. The patient is not safe for discharge. [facility]# [id number]
[2017-04-29] MEDS: Levothyroxine 0.025 Mg Tab PO SCH (06:30)
[2017-04-29] MEDS: Multivitamin w/ Minerals Tab PO SCH (08:09)
[2017-04-29] MEDS: Calcium Carb/Vit D 500 mg/200 U Tab PO SCH (08:09)
[2017-04-29] MEDS: Polyvinyl Alcohol Ophth Soln 15 mL Bottle EACH EYE SCH ×2 (08:09→16:03)
--- NOTE | 2017-04-29 13:21 | Internal Medicine Prog Note ---
Internal Medicine Subjective - Subjective Patient seen and examined:: with staff, chart reviewed Patient is:: awake, verbal, interactive, in bed, confused Per staff patient has:: no adverse event, no episodes of fall, poor appetite, tolerating meds Internal Medicine Objective - Results Result Diagrams: 04/18/17 14:00 04/18/17 14:00 Recent Labs: Laboratory Last Values WBC 8.7 Th/cmm (4.8-10.8) 04/18/17 14:00 RBC 4.79 Mil/cmm (3.80-5.20) 04/18/17 14:00 Hgb 14.2 gm/dL (12-16) D 04/18/17 14:00 Hct 43.4 % (41.0-60) D 04/18/17 14:00 MCV 90.6 fl (81-100) 04/18/17 14:00 MCH 29.6 pg (27.0-31.0) 04/18/17 14:00 MCHC Differential 32.7 pg (28.0-36.0) 04/18/17 14:00 RDW 12.9 % (11.5-20.0) 04/18/17 14:00 Plt Count 324 Th/cmm (150-400) 04/18/17 14:00 MPV 8.2 fl 04/18/17 14:00 Neutrophils % 55.5 % (40.0-80.0) 04/18/17 14:00 Lymphocytes % 32.8 % (20.0-50.0) 04/18/17 14:00 Monocytes % 8.2 % (2.0-10.0) 04/18/17 14:00 Eosinophils % 2.9 % (0.0-5.0) 04/18/17 14:00 Basophils % 0.6 % (0.0-2.0) 04/18/17 14:00 Sodium 137 mEq/L (136-145) 04/18/17 14:00 Potassium 5.2 mEq/L (3.5-5.1) H 04/18/17 14:00 Chloride 107 mEq/L (98-107) 04/18/17 14:00 Carbon Dioxide 24.1 mEq/L (21.0-31.0) 04/18/17 14:00 Anion Gap 11.1 (7.0-16.0) 04/18/17 14:00 BUN 29 mg/dL (7-25) H 04/18/17 14:00 Creatinine 0.8 mg/dL (0.6-1.2) 04/18/17 14:00 Est GFR ( Amer) TNP 04/18/17 14:00 Est GFR (Non-Af Amer) TNP 04/18/17 14:00 BUN/Creatinine Ratio 36.3 04/18/17 14:00 Glucose 102 mg/dL (70-105) 04/18/17 14:00 Calcium 9.9 mg/dL (8.6-10.3) 04/18/17 14:00 Total Bilirubin 0.3 mg/dL (0.3-1.0) 04/18/17 14:00 AST 19 U/L (13-39) 04/18/17 14:00 ALT 14 U/L (7-52) 04/18/17 14:00 Alkaline Phosphatase 78 U/L (34-104) 04/18/17 14:00 Total Protein 6.8 gm/dL (6.0-8.3) 04/18/17 14:00 Albumin 4.0 gm/dL (3.7-5.3) 04/18/17 14:00 Globulin 2.8 gm/dL 04/18/17 14:00 Albumin/Globulin Ratio 1.4 (1.0-1.8) 04/18/17 14:00 Triglycerides 122 mg/dL (<150) 04/18/17 14:00 Cholesterol 143 mg/dL (<200) 04/18/17 14:00 LDL Cholesterol Direct 79 mg/dL (75-193) 04/18/17 14:00 HDL Cholesterol 48 mg/dL (23-92) 04/18/17 14:00 TSH 2.32 uIU/ml (0.34-5.60) 04/18/17 14:00 RPR NONREACTIVE (NONREACTIVE) 04/18/17 14:00 - Physical Exam Vitals and I&O: Vital Signs Temp 97.6 F 04/29/17 06:00 Pulse 80 04/29/17 06:00 Resp 18 04/29/17 06:00 BP 113/76 04/29/17 06:00 Pulse Ox 97 04/29/17 06:00 Intake & Output 04/28/17 04/29/17 04/29/17 18:59 06:59 18:59 Intake Total 240 Balance 240 Intake: Oral 240 Other: # Voids 3 Active Medications: Current Medications Alendronate Sodium (Fosamax) 70 mg PO QSAT@0630 [facility] Stop: 06/24/17 06:29 Last Admin: 04/25/17 06:33 Dose: Not Given Artificial Tears (Artificial Tears Ophth Soln) 1 drop EACH EYE BID K[facility] Stop: 06/18/17 08:59 Last Admin: 04/29/17 08:09 Dose: Not Given Artificial Tears (Artificial Tears Ophth Soln) 1 drop LEFT EYE 5XD PRN PRN Reason: ITCHING Stop: 06/19/17 07:55 Ascorbic Acid (Vitamin C) 500 mg PO DAILY [facility] Stop: 06/18/17 08:59 Last Admin: 04/29/17 08:09 Dose: Not Given Bisacodyl (Dulcolax 10 Mg Supp) 10 mg RC DAILY PRN PRN Reason: Constipation Stop: 06/17/17 18:39 Last Admin: 04/26/17 18:36 Dose: 10 mg Calamine/Phenol (Calmoseptine) 1 appl TP QID PRN PRN Reason: Skin Irritation Stop: 06/19/17 15:41 Calcium/Vitamin D (Oscal W/Vitamin D) 1 tab PO DAILY [facility] Stop: 06/18/17 08:59 Last Admin: 04/29/17 08:09 Dose: Not Given Carvedilol (Coreg) 6.25 mg PO BID [facility] Stop: 06/18/17 08:59 Last Admin: 04/29/17 08:09 Dose: Not Given Docusate Sodium (Colace) 100 mg PO BID [facility] Stop: 06/17/17 18:59 Last Admin: 04/29/17 08:09 Dose: Not Given Haloperidol Lactate (Haldol) 1 mg IM HS PRN PRN Reason: Agitation Stop: 06/26/17 09:58 Last Admin: 04/28/17 20:33 Dose: 1 mg Levothyroxine Sodium (Synthroid) 0.025 mg PO QDAC [facility] Stop: 06/19/17 07:29 Last Admin: 04/29/17 06:30 Dose: Not Given Mirtazapine (Remeron) 7.5 mg PO HS [facility] PRN Reason: Protocol Stop: 06/17/17 20:59 Last Admin: 04/28/17 20:21 Dose: Not Given Montelukast Sodium (Singulair) 10 mg PO [facility] Stop: 06/17/17 20:59 Last Admin: 04/28/17 20:21 Dose: Not Given Prednisone (Deltasone) 5 mg PO BID [facility] Stop: 06/18/17 08:59 Last Admin: 04/29/17 08:09 Dose: Not Given Quetiapine Fumarate 50 mg/ (Quetiapine Fumarate 25 mg) 75 mg PO [facility] Stop: 06/28/17 20:59 Rivaroxaban (Xarelto) 10 mg PO DAILY [facility] Stop: 06/18/17 08:59 Last Admin: 04/29/17 08:09 Dose: Not Given Senna (Senna) 8.6 mg PO DAILY [facility] Stop: 06/18/17 08:59 Last Admin: 04/29/17 08:09 Dose: Not Given Simvastatin (Zocor) 20 mg PO [facility] Stop: 06/17/17 20:59 Last Admin: 04/28/17 20:21 Dose: Not Given Sodium Phosphate (Fleet Enema) 135 ml RC DAILY PRN PRN Reason: CONSTIPATION Stop: 06/17/17 19:14 General: alert, demented HEENT: NC/AT, PERRLA Lungs: CTAB Cardiovascular: RRR, Normal S1, Normal S2, without murmur Abdomen: soft, non-tender, non-distended, positive bowel sound Extremities: excoriation Neurological: alert - Procedures Procedures: Procedures Procedure Code Date TANIA MUSC/FASCIA 20 SQ CM/< 90101 10/20/12 EXC LES SOFT TISSUE NEC 83.39 10/20/12 OPEN REDUC-INT FIX FEMUR 79.35 10/20/12 OTHER GROUP THERAPY 94.44 08/04/14 PACKED CELL TRANSFUSION 99.04 10/20/12 PARTIAL HIP REPLACEMENT 81.52 10/20/12 PARTIAL HIP REPLACEMENT 45172 10/20/12 RECREATIONAL THERAPY 93.81 12/29/11 TREAT THIGH FRACTURE 31671 10/20/12 Internal Medicine Assmt/Plan - Assessment Assessment: HTN ASTHMA COPD HYPERCHOLESTEREMIA DEMENTIA HYPERKALEMIA RENAL INSUFFICIENCY HYPOTHYROIDISM OSTEOPOROSIS - Plan Plan: - Plan Plan: low fat diet bronchodilators as needed safety precautions psych f/u continue current plan of care Nutritional Asmnt/Malnutr-PDOC - Dietary Evaluation Malnutrition Findings (Please click <Entered> for more info): Nutritional Asmnt/Malnutrition Start: 04/23/17 14: 56 Text: Status: Complete Freq: Document 04/23/17 14:56 SUSSY (Rec: 04/23/17 15:06 SUSSY [email or web address]) Nutritional Asmnt/Malnutrition Patient General Information Nutritional Screening Moderate Risk Screening Diagnosis Psychosis, dementia Pertinent Medical Hx/Surgical Hx HTN, asthma, COPD, hypercholesterolemia, debilitation, hypothyrodism Subjective Information 71 year old female from SNF. Visited pt during meal time, pt was awake however very confused. Observed pt sprinkling quinoa all over self, stating she is decorating a wedding. Pt report currently not hungry, however usually good appetited . Avg PO intake 75-100% of meals since adm, meeting nutritnioal needs. Observed Boost Plus on tray, not in diet order. Encouraged pt to at least drink oral supplement if not intended to eat, pt verbalized understood. CBW 165 .7lb via bedscale, pt report UBW 98lb, however pt apepar overweight, at least 130lb. No muscle/fat wasting noted. Current Diet Order/ Nutrition Support [facility] soft chopped, fortified XAVIER, Resource 2.0 TID Pertinent Medications Vitamin c, Dulcolax, Oscal W/ Vitamin D, Colace, synthroid, Remeron, Seroqual, Senna, Fleet Enema Pertinent Labs Reviewed. Nutritional Hx/Data Height 1.63 m Height (Calculated Centimeters) 162.6 Current Weight (lbs) 75.16 kg Weight (Calculated Kilograms) 75.2 Weight (Calculated Grams) 95096.3 [place] Body Weight 120 Weight Status Overweight GI Symptoms Usual diet at home [facility], fortified XAVIER, thin, Resource 2.0 TID Skin Integrity/Comment: Deejay 16. Buttock reddened. Current %PO Good (75-100%) Estimated Nutritional Goals Calories/Kcals/Kg IBW 120lb/54.5kg Kcals Calculated 1363-1635kcal (25-30kcal/kg) Protein Calculated 55g (1g/kg) Fluid: ml 1363-1635ml (1ml/kcal) Nutritional Problem 1. Problem Problem No nutritinoal problem at this time. Intervention/Recommendation Comments 1. Continue with mech soft chopped with thin liquids. Avg PO itnake is adequate. 2. Nursing staff to provide supervision during meals. Pt observed sprinkling quinoa all over self. Encourage pt to at least drink oral supplement when poor solid food intake. 3. Recommend Boost TID in place of Resource 2.0 TID as [facility] does not carry this product. Expected Outcomes/Goals Expected Outcomes/Goals 1. PO intake to meet at least 75% of estimated nutritinoal needs.
--- NOTE | 2017-04-29 20:51 | Progress Notes ---
DATE: SUBJECTIVE: The patient was seen, chart reviewed, discussed with staff. The patient seems to be improving, clearing up, calmer, more cooperative, no longer is bizarre, taking her medications, no side effects. There is still evidence that she is having some psychotic symptoms, still rambling, saying things , however, no agitation, no aggressive behaviors. She is more engaged. ASSESSMENT: Improvement noted, still with some residual psychotic symptoms. PLAN: Increase Seroquel today. Monitor closely for any overt side effects. JOB# [id number]
[2017-04-30] MEDS: Levothyroxine 0.025 Mg Tab PO SCH (06:51)
[2017-04-30] MEDS: Polyvinyl Alcohol Ophth Soln 15 mL Bottle EACH EYE SCH ×2 (08:47→16:25)
[2017-04-30] MEDS: Multivitamin w/ Minerals Tab PO SCH (08:48)
[2017-04-30] MEDS: Calcium Carb/Vit D 500 mg/200 U Tab PO SCH (08:48)
--- NOTE | 2017-04-30 13:56 | Internal Medicine Prog Note ---
Internal Medicine Subjective - Subjective Service Date: 04/30/17 Patient is:: awake, verbal, interactive, in bed, confused Per staff patient has:: no adverse event, no episodes of fall, poor appetite, tolerating meds Internal Medicine Objective - Results Result Diagrams: 04/18/17 14:00 04/18/17 14:00 Recent Labs: Laboratory Last Values WBC 8.7 Th/cmm (4.8-10.8) 04/18/17 14:00 RBC 4.79 Mil/cmm (3.80-5.20) 04/18/17 14:00 Hgb 14.2 gm/dL (12-16) D 04/18/17 14:00 Hct 43.4 % (41.0-60) D 04/18/17 14:00 MCV 90.6 fl (81-100) 04/18/17 14:00 MCH 29.6 pg (27.0-31.0) 04/18/17 14:00 MCHC Differential 32.7 pg (28.0-36.0) 04/18/17 14:00 RDW 12.9 % (11.5-20.0) 04/18/17 14:00 Plt Count 324 Th/cmm (150-400) 04/18/17 14:00 MPV 8.2 fl 04/18/17 14:00 Neutrophils % 55.5 % (40.0-80.0) 04/18/17 14:00 Lymphocytes % 32.8 % (20.0-50.0) 04/18/17 14:00 Monocytes % 8.2 % (2.0-10.0) 04/18/17 14:00 Eosinophils % 2.9 % (0.0-5.0) 04/18/17 14:00 Basophils % 0.6 % (0.0-2.0) 04/18/17 14:00 Sodium 137 mEq/L (136-145) 04/18/17 14:00 Potassium 5.2 mEq/L (3.5-5.1) H 04/18/17 14:00 Chloride 107 mEq/L (98-107) 04/18/17 14:00 Carbon Dioxide 24.1 mEq/L (21.0-31.0) 04/18/17 14:00 Anion Gap 11.1 (7.0-16.0) 04/18/17 14:00 BUN 29 mg/dL (7-25) H 04/18/17 14:00 Creatinine 0.8 mg/dL (0.6-1.2) 04/18/17 14:00 Est GFR ( Amer) TNP 04/18/17 14:00 Est GFR (Non-Af Amer) TNP 04/18/17 14:00 BUN/Creatinine Ratio 36.3 04/18/17 14:00 Glucose 102 mg/dL (70-105) 04/18/17 14:00 Calcium 9.9 mg/dL (8.6-10.3) 04/18/17 14:00 Total Bilirubin 0.3 mg/dL (0.3-1.0) 04/18/17 14:00 AST 19 U/L (13-39) 04/18/17 14:00 ALT 14 U/L (7-52) 04/18/17 14:00 Alkaline Phosphatase 78 U/L (34-104) 04/18/17 14:00 Total Protein 6.8 gm/dL (6.0-8.3) 04/18/17 14:00 Albumin 4.0 gm/dL (3.7-5.3) 04/18/17 14:00 Globulin 2.8 gm/dL 04/18/17 14:00 Albumin/Globulin Ratio 1.4 (1.0-1.8) 04/18/17 14:00 Triglycerides 122 mg/dL (<150) 04/18/17 14:00 Cholesterol 143 mg/dL (<200) 04/18/17 14:00 LDL Cholesterol Direct 79 mg/dL (75-193) 04/18/17 14:00 HDL Cholesterol 48 mg/dL (23-92) 04/18/17 14:00 TSH 2.32 uIU/ml (0.34-5.60) 04/18/17 14:00 RPR NONREACTIVE (NONREACTIVE) 04/18/17 14:00 - Physical Exam Vitals and I&O: Vital Signs Temp 97.2 F 04/30/17 06:26 Pulse 82 04/30/17 06:26 Resp 18 04/30/17 06:26 BP 112/61 04/30/17 06:26 Pulse Ox 96 04/30/17 06:26 Intake & Output 04/29/17 04/30/17 04/30/17 18:59 06:59 18:59 Intake Total 700 120 Balance 700 120 Weight (lbs) 165 lb 12.8 oz Intake: Oral 700 120 Other: # Voids 3 3 # Bowel Movements 0 Active Medications: Current Medications Alendronate Sodium (Fosamax) 70 mg PO QSAT@0630 [facility] Stop: 06/24/17 06:29 Last Admin: 04/25/17 06:33 Dose: Not Given Artificial Tears (Artificial Tears Ophth Soln) 1 drop EACH EYE BID [facility] Stop: 06/18/17 08:59 Last Admin: 04/30/17 08:47 Dose: Not Given Artificial Tears (Artificial Tears Ophth Soln) 1 drop LEFT EYE 5XD PRN PRN Reason: ITCHING Stop: 06/19/17 07:55 Ascorbic Acid (Vitamin C) 500 mg PO DAILY [facility] Stop: 06/18/17 08:59 Last Admin: 04/30/17 08:48 Dose: Not Given Bisacodyl (Dulcolax 10 Mg Supp) 10 mg RC DAILY PRN PRN Reason: Constipation Stop: 06/17/17 18:39 Last Admin: 04/26/17 18:36 Dose: 10 mg Calamine/Phenol (Calmoseptine) 1 appl TP QID PRN PRN Reason: Skin Irritation Stop: 06/19/17 15:41 Calcium/Vitamin D (Oscal W/Vitamin D) 1 tab PO DAILY [facility] Stop: 06/18/17 08:59 Last Admin: 04/30/17 08:48 Dose: Not Given Carvedilol (Coreg) 6.25 mg PO BID [facility] Stop: 06/18/17 08:59 Last Admin: 04/30/17 08:47 Dose: Not Given Docusate Sodium (Colace) 100 mg PO BID [facility] Stop: 06/17/17 18:59 Last Admin: 04/30/17 08:47 Dose: Not Given Haloperidol Lactate (Haldol) 1 mg IM HS PRN PRN Reason: Agitation Stop: 06/26/17 09:58 Last Admin: 04/28/17 20:33 Dose: 1 mg Levothyroxine Sodium (Synthroid) 0.025 mg PO QDAC [facility] Stop: 06/19/17 07:29 Last Admin: 04/30/17 06:51 Dose: 0.025 mg Mirtazapine (Remeron) 7.5 mg PO [facility] PRN Reason: Protocol Stop: 06/17/17 20:59 Last Admin: 04/29/17 21:13 Dose: 7.5 mg Montelukast Sodium (Singulair) 10 mg PO HS [facility] Stop: 06/17/17 20:59 Last Admin: 04/29/17 21:15 Dose: Not Given Prednisone (Deltasone) 5 mg PO BID [facility] Stop: 06/18/17 08:59 Last Admin: 04/30/17 08:48 Dose: Not Given Quetiapine Fumarate 50 mg/ (Quetiapine Fumarate 25 mg) 75 mg PO HS [facility] Stop: 06/28/17 20:59 Last Admin: 04/29/17 21:13 Dose: 75 mg Rivaroxaban (Xarelto) 10 mg PO DAILY [facility] Stop: 06/18/17 08:59 Last Admin: 04/30/17 08:48 Dose: Not Given Senna (Senna) 8.6 mg PO DAILY [facility] Stop: 06/18/17 08:59 Last Admin: 04/30/17 08:48 Dose: Not Given Simvastatin (Zocor) 20 mg PO HS [facility] Stop: 06/17/17 20:59 Last Admin: 04/29/17 21:15 Dose: Not Given Sodium Phosphate (Fleet Enema) 135 ml RC DAILY PRN PRN Reason: CONSTIPATION Stop: 06/17/17 19:14 General: alert, demented HEENT: NC/AT, PERRLA Lungs: CTAB Cardiovascular: RRR, Normal S1, Normal S2, without murmur Abdomen: soft, non-tender, non-distended, positive bowel sound Extremities: excoriation Neurological: alert - Procedures Procedures: Procedures Procedure Code Date TANIA MUSC/FASCIA 20 SQ CM/< 51518 10/20/12 EXC LES SOFT TISSUE NEC 83.39 10/20/12 OPEN REDUC-INT FIX FEMUR 79.35 10/20/12 OTHER GROUP THERAPY 94.44 08/04/14 PACKED CELL TRANSFUSION 99.04 10/20/12 PARTIAL HIP REPLACEMENT 81.52 10/20/12 PARTIAL HIP REPLACEMENT 25956 10/20/12 RECREATIONAL THERAPY 93.81 12/29/11 TREAT THIGH FRACTURE 70900 10/20/12 Internal Medicine Assmt/Plan - Assessment Assessment: HTN ASTHMA COPD HYPERCHOLESTEREMIA DEMENTIA HYPERKALEMIA RENAL INSUFFICIENCY HYPOTHYROIDISM OSTEOPOROSIS - Plan Plan: low fat diet bronchodilators as needed safety precautions psych f/u continue current plan of care Nutritional Asmnt/Malnutr-PDOC - Dietary Evaluation Malnutrition Findings (Please click <Entered> for more info): Nutritional Asmnt/Malnutrition Start: 04/23/17 14: 56 Text: Status: Complete Freq: Document 04/23/17 14:56 GSUN (Rec: 04/23/17 15:06 GSHUSSEIN [email or web address]) Nutritional Asmnt/Malnutrition Patient General Information Nutritional Screening Moderate Risk Screening Diagnosis Psychosis, dementia Pertinent Medical Hx/Surgical Hx HTN, asthma, COPD, hypercholesterolemia, debilitation, hypothyrodism Subjective Information 71 year old female from SNF. Visited pt during meal time, pt was awake however very confused. Observed pt sprinkling quinoa all over self, stating she is decorating a wedding. Pt report currently not hungry, however usually good appetited . Avg PO intake 75-100% of meals since adm, meeting nutritnioal needs. Observed Boost Plus on tray, not in diet order. Encouraged pt to at least drink oral supplement if not intended to eat, pt verbalized understood. CBW 165 .7lb via bedscale, pt report UBW 98lb, however pt apepar overweight, at least 130lb. No muscle/fat wasting noted. Current Diet Order/ Nutrition Support [facility] soft chopped, fortified XAVIER, Resource 2.0 TID Pertinent Medications Vitamin c, Dulcolax, Oscal W/ Vitamin D, Colace, synthroid, Remeron, Seroqual, Senna, Fleet Enema Pertinent Labs Reviewed. Nutritional Hx/Data Height 5 ft 4 in Height (Calculated Centimeters) 162.6 Current Weight (lbs) 165 lb 11.2 oz Weight (Calculated Kilograms) 75.2 Weight (Calculated Grams) 87991.3 [place] Body Weight 120 Weight Status Overweight GI Symptoms Usual diet at home [facility]a [facility]: [facility] soft, fortified XAVIER, thin, Resource 2.0 TID Skin Integrity/Comment: Deejay 16. Buttock reddened. Current %PO Good (75-100%) Estimated Nutritional Goals Calories/Kcals/Kg IBW 120lb/54.5kg Kcals Calculated 1363-1635kcal (25-30kcal/kg) Protein Calculated 55g (1g/kg) Fluid: ml 1363-1635ml (1ml/kcal) Nutritional Problem 1. Problem Problem No nutritinoal problem at this time. Intervention/Recommendation Comments 1. Continue with mech soft chopped with thin liquids. Avg PO itnake is adequate. 2. Nursing staff to provide supervision during meals. Pt observed sprinkling quinoa all over self. Encourage pt to at least drink oral supplement when poor solid food intake. 3. Recommend Boost TID in place of Resource 2.0 TID as [facility] does not carry this product. Expected Outcomes/Goals Expected Outcomes/Goals 1. PO intake to meet at least 75% of estimated nutritinoal needs.
--- NOTE | 2017-04-30 22:56 | Progress Notes ---
DATE: 04/30/2017 SUBJECTIVE: The patient was seen, chart reviewed, and discussed with staff. The patient remains bizarre, symptomatic, and selectively mute. She has been taking medications at night time. She has been more compliant, singing episodes, yelling at times, likely approaching her baseline, still appearing to respond to internal stimuli. She does appear to be calmer. ASSESSMENT: The patient remains symptomatic, still with evidence of psychosis, but does seem to be improving. She is calmer and no aggression noted. PLAN: We will continue to monitor increased Seroquel today to target residual psychosis. [facility]# [id number]
[2017-05-01] MEDS: Levothyroxine 0.025 Mg Tab PO SCH (06:53)
[2017-05-01] MEDS: Calcium Carb/Vit D 500 mg/200 U Tab PO SCH (09:58)
[2017-05-01] MEDS: Multivitamin w/ Minerals Tab PO SCH (10:00)
[2017-05-01] MEDS: Polyvinyl Alcohol Ophth Soln 15 mL Bottle EACH EYE SCH ×2 (10:10→17:03)
--- NOTE | 2017-05-01 20:52 | Discharge Summary ---
DATE OF DISCHARGE: 05/01/2017 JUSTIFICATION FOR HOSPITALIZATION: Bizarre behaviors, yelling, screaming, decompensating, and bizarre. CHIEF COMPLAINT: "____ the happiest man in the world." HISTORY OF PRESENT ILLNESS: This is a 71-year-old female with long history of mental illness, likely bipolar affective disorder, confused, more disoriented, bizarre, not making any sense, acting strangely at the long-term, throwing things, lashing out at the staff, disoriented on exam, making nonsensical statements such as "____ staff having sex with machine" and also hallucinating. PAST PSYCHIATRIC HISTORY: Admissions in the past. FAMILY HISTORY: Noncontributory. SOCIAL HISTORY: Living at [facility]. I did speak with the daughter over the phone. She is supportive. MENTAL STATUS EXAMINATION: Please see full psych eval for details. MEDICATIONS: Reviewed. PAST MEDICAL HISTORY: Noted. Please see full H and P. MENTAL STATUS EXAMINATION: Please see full psych eval for details. PROVISIONAL DIAGNOSIS: Mood, unspecified; psychosis, unspecified, likely bipolar affective disorder. HOSPITAL COURSE: After initial assessment, medications were initiated and titrated Seroquel. She did refuse. I did file a [place] petition, it was upheld. Seroquel was given. She began to improve. Mood improved. Affect improved. Psychotic symptoms improved. Less bizarre. Friendlier. No longer combative. CONDITION UPON DISCHARGE: Improved, better attention to ADLs, good eye contact. Speech was within normal limits. Mood "fine." Affect flat. Thought processes remain odd. Disoriented. No SI, no SI, no overt psychotic symptoms. Insight and judgment still limited. Better impulse control. PROVISIONAL DIAGNOSIS: Bipolar, unspecified. MEDICAL DIAGNOSIS: Please see full H and P, likely dementia component. PROGNOSIS: The patient follows up and continues her medications. Prognosis will improve, otherwise guarded. JOB# [id number]
== END 2017-05-01 15:00 | disposition home or self-care (01) | DRG 885 ==
LOC: ER 13:13 → GERO 15:24
PROVIDERS: ADMIT Psychiatry & Neurology Psychiatry; ATTEND Psychiatry & Neurology Psychiatry
DX: F31.9 Bipolar disorder, unspecified (principal); F03.90 Unspecified dementia, unspecified severity, without behavioral disturbance, psychotic disturbance, mood disturbance, and anxiety; E87.5 Hyperkalemia; F29 Unspecified psychosis not due to a substance or known physiological condition; I10 Essential (primary) hypertension; J44.9 Chronic obstructive pulmonary disease, unspecified; E03.9 Hypothyroidism, unspecified; M81.0 Age-related osteoporosis without current pathological fracture; N28.9 Disorder of kidney and ureter, unspecified; E78.00 Pure hypercholesterolemia, unspecified
CPT/HCPCS: 36415-UA; 80053-TC; 80061-TC; 84443-TC; 85025-TC; 86592-TC; 93005; J1630; J7512; Z7610

== ENCOUNTER 2017-12-24 21:53 | Inpatient (IN) | payer MEDICARE, MEDICAID ==
--- NOTE | 2017-12-24 22:07 | ED Physician Chart ---
ED Chief Complaint/HPI - Patient Information Date Seen:: 12/24/17 Time Seen:: 21:55 Chief Complaint:: coffee-ground emesis History of Present Illness:: She had coffee-ground emesis both yesterday and today. She complains of epigastric pain. Allergies:: Allergies Allergy/AdvReac Type Severity Reaction Status Date / Time No Known Allergies Allergy Verified 04/18/17 17:45 Historian:: Patient, EMS Review:: Nurse's Note Reviewed ED Review of Systems - Review of Systems General/Constitutional: No fever, No chills, No weight loss, No weakness, No diaphoresis, No edema, No loss of appetite Skin: No skin lesions, No rash, No bruising Head: No headache, No light-headedness Eyes: No loss of vision, No pain, No diplopia ENT: No earache, No nasal drainage, No sore throat, No tinnitus Neck: No neck pain, No swelling, No thyromegaly, No stiffness, No mass noted Cardio Vascular: No chest pain, No palpitations, No PND, No orthopnea, No edema Pulmonary: No SOB, No cough, No sputum, No wheezing GI: Nausea, Vomiting, No diarrhea, Pain, No melena, No hematochezia, No constipation, Hematemesis G/U: No dysuria, No frequency, No hematuria Musculoskeletal: No bone or joint pain, No back pain, No muscle pain Endocrine: No polyuria, No polydipsia Psychiatric: No prior psych history, No depression, No anxiety, No suicidal ideation Hematopoietic: No bruising, No lymphadenopathy Allergic/Immuno: No urticaria, No angioedema Neurological: No syncope, No focal symptoms, No weakness, No paresthesia, No headache, No seizure, No dizziness, No confusion, No vertigo ED Past Medical History - Past Medical History Past Medical History: HTN, Other (status post UTIs) Family History: None Social History: Care Facility, Other (former smoker) Psychiatricy History: Depression, Other (psychosis) Family Medical History - Family Member Mother History Unknown: Yes Ethnicity: Non- ED Physical Exam - Physical Examination General/Constitutional: Awake, No distress Other Gen/Cons comments:: Chronically ill-appearing; alert and oriented to the correct date Head: Atraumatic Eyes: Lids, conjuctiva normal, PERRL Skin: Nl inspection, No rash ENMT: External ears, nose nl Neck: No nuchal rigidity Respiratory: Nl effort/Exclusion, Clear to Auscultation Cardio Vascular: RRR, No murmur, gallop, rubs, NL S1 S2 GI: No organomegaly, No hernia, Nondistended Other GI comments:: Epigastric tenderness : No CVA tenderness ED Labs/Radiology/EKG Results - Lab Results Results: Laboratory Results - last 24 hr 12/24/17 12/24/17 12/24/17 22:09 22:09 22:09 WBC 27.4 H* RBC 4.46 Hgb 13.5 Hct 39.7 L MCV 89.0 MCH 30.3 MCHC Differential 34.1 RDW 12.9 Plt Count 173 MPV 7.7 Band Neutrophils % 19 H Neutrophils (Manual) 61 Lymphocytes 13 L Monocytes 6 Eosinophils 1 Platelet Estimate ADEQUATE PT 11.2 INR 1.08 PTT (Actin FS) 32.3 Sodium 132 L Potassium 4.2 Chloride 97 L Carbon Dioxide 21.5 Anion Gap 17.7 H BUN 48 H Creatinine 2.1 H Est GFR ( Amer) TNP Est GFR (Non-Af Amer) TNP BUN/Creatinine Ratio 22.9 Glucose 138 H Whole Bld Lactic Acid Calcium 9.3 Urine Source Urine Color Urine Clarity Urine pH Ur Specific [place] Urine Protein Urine Glucose (UA) Urine Ketones Urine Blood Urine Nitrate Urine Bilirubin Urine Urobilinogen Ur Leukocyte Esterase Urine RBC Urine WBC Ur Epithelial Cells Urine Bacteria 12/24/17 12/24/17 22:09 22:50 WBC RBC Hgb Hct MCV MCH MCHC Differential RDW Plt Count MPV Band Neutrophils % Neutrophils (Manual) Lymphocytes Monocytes Eosinophils Platelet Estimate PT INR PTT (Actin FS) Sodium Potassium Chloride Carbon Dioxide Anion Gap BUN Creatinine Est GFR ( Amer) Est GFR (Non-Af Amer) BUN/Creatinine Ratio Glucose Whole Bld Lactic Acid 2.22 H* Calcium Urine Source [place] Urine Color YELLOW Urine Clarity HAZY Urine pH 7.0 Ur Specific [place] 1.020 Urine Protein 100 H Urine Glucose (UA) NEGATIVE Urine Ketones 15 H Urine Blood LARGE H Urine Nitrate NEGATIVE Urine Bilirubin SMALL H Urine Urobilinogen 0.2 Ur Leukocyte Esterase LARGE H Urine RBC 0-2 Urine WBC 50-100 H Ur Epithelial Cells MODERATE Urine Bacteria MANY H - Radiology Results Results: Chest x-ray shows a widened mediastinum but is otherwise normal - EKG Interpretations Rate & Rhythm: sinus tachycardia with a rate of 107 [place]: normal Comments:: Low-voltage and premature atrial contractions ED Assessment - Assessment General Assessment: At 2215 patient had no abdominal tenderness. ED Septic Shock - . Is Septic Shock (SBP<90, OR Lactate>4 mmol\L) present?: No - <6hrs of presentation: Assessment of Lungs: Lung CTA bilateral Assessment of Heart: RRR EKG Interpretation: Tachy Capillary refill evaluation: Capillary refill < 2 secs Skin Exam: Warm - Time of Reassessment Time of Reassessment: 22:00 ED Reassessment (Disposition) - Reassessment Reassessment Condition:: Improved - Diagnosis Diagnosis:: Urinary tract infection; urosepsis; leukocytosis; - Patient Disposition Admitted to:: ICU Spoke to:: Oswald Gilbert Admitting Medical Physician:: Oswald Gilbert Condition at Disposition:: Critical
[2017-12-24 22:21] LABS: HEMATOCRIT 39.7 % (41.0-60); HEMOGLOBIN 13.5 gm/dL (12-16); MANUAL DIFF REQUIRED? YES; MEAN CORPUSCULAR HEMOGLOBIN 30.3 pg (27.0-31.0); MEAN CORPUSCULAR HGB CONC 34.1 pg (28.0-36.0); MEAN PLATELET VOLUME 7.7 fl; PLATELET COUNT 173 Th/cmm (150-400); RED BLOOD COUNT 4.46 Mil/cmm (3.80-5.20); RED CELL DISTRIBUTION WIDTH 12.9 % (11.5-20.0)
[2017-12-24 22:22] LABS: WHITE BLOOD COUNT 27.4 Th/cmm (4.8-10.8)
[2017-12-24 22:30] LABS: INR 1.08 (0.5-1.4); PROTHROMBIN TIME (TEST) 11.2 SECONDS (9.5-11.5)
[2017-12-24 22:31] LABS: ANION GAP 17.7 (7.0-16.0); BUN - UREA NITROGEN 48 mg/dL (7-25); CALCIUM SERUM 9.3 mg/dL (8.6-10.3); CARBON DIOXIDE 21.5 mEq/L (21.0-31.0); CHLORIDE 97 mEq/L (98-107); CREATININE - SERUM 2.1 mg/dL (0.6-1.2); GLUCOSE 138 mg/dL (70-105); POTASSIUM SERUM 4.2 mEq/L (3.5-5.1); SODIUM SERUM 132 mEq/L (136-145)
[2017-12-24] MEDS ORDERED: Sodium Chloride 0.9% 1,000 ML IV ONE ×3 (22:39→23:27)
[2017-12-24 23:05] LABS: URINE MICROSCOPIC INDICATED? YES; URINE SOURCE FOLEY PORT
[2017-12-24 23:06] LABS: URINE BILIRUBIN SMALL (NEGATIVE); URINE BLOOD LARGE (NEGATIVE); URINE GLUCOSE (UA) NEGATIVE (NEGATIVE); URINE KETONE 15 mg/dL (NEGATIVE); URINE LEUKOCYTE ESTERASE LARGE (NEGATIVE); URINE NITRATE NEGATIVE (NEGATIVE); URINE PROTEIN 100 mg/dL (NEGATIVE); URINE UROBILINOGEN 0.2 E.U./dL (0.2 - 1.0)
[2017-12-24 23:12] LABS: URINE CLARITY HAZY (CLEAR); URINE COLOR YELLOW
[2017-12-24 23:13] LABS: URINE RBC 0-2 /hpf (0-5)
[2017-12-24 23:14] LABS: URINE BACTERIA MANY /hpf (NONE SEEN); URINE EPITHELIAL CELLS MODERATE /lpf (FEW); URINE WBC 50-100 /hpf (0-5)
[2017-12-24 23:16] LABS: BAND NEUTROPHILE 19 % (0-10); NEUTROPHILS 61 % (40-80); TOTAL CELLS COUNTED 100
[2017-12-24 23:17] LABS: EOSINOPHIL 1 % (0-5); LYMPHOCYTE 13 % (20-50); MONOCYTE 6 % (2-10); PLATELET ESTIMATE ADEQUATE (NORMAL)
[2017-12-24] MEDS ORDERED: Albuterol Nebulizer 2.5mg/3mL HHN PRN (23:21)
[2017-12-24] MEDS ORDERED: Albumin 5% 12.5gm/250mL 12.5 GM/250 ML BTL IV ONE (23:25)
[2017-12-24] MEDS ORDERED: cefTRIAXone 1 GM in Sodium Chloride 0.9% 50 ML IV ONE (23:28)
[2017-12-24] MEDS ORDERED: D5-0.9%NS 1,000 ML IV SCH (23:30)
[2017-12-25] MEDS ORDERED: Piperacillin Sodium/Tazobact 2.25 gm Vial IV ONE (05:14)
[2017-12-25] MEDS: Piperacillin Sodium/Tazobact 2.25 GM in Sodium Chloride 0.9% 100 ML IV SCH ×3 (05:17→20:20)
[2017-12-25] MEDS ORDERED: Pneumococcal Vaccine 0.5 mL Vial IM ONE (05:40)
[2017-12-25] MEDS: Albuterol Nebulizer 2.5mg/3mL HHN SCH ×4 (07:15→19:10)
[2017-12-25] MEDS: Ipratropium Neb 0.5 mg/2.5 mL UD HHN SCH ×4 (07:15→19:10)
--- NOTE | 2017-12-25 08:36 | Diagnostic Imaging Report ---
Portable chest x-ray Time: 2245 hours History: Pain Allowing for portable technique the heart size is normal. No focal pulmonary parenchymal processes. No hilar or mediastinal abnormalities. There is evidence of mild left basilar atelectasis. Impression: No acute abnormalities.
[2017-12-25] MEDS: Levothyroxine 0.025 Mg Tab PO SCH (10:20)
[2017-12-25] MEDS: Multivitamin w/ Minerals Tab PO SCH (10:21)
[2017-12-25 10:42] LABS: EOSINOPHILE ABSOLUTE 0.3 Th/cmm (0.1-0.4); LYMPHOCYTE ABSOLUTE 0.6 Th/cmm (1.5-3.0); MEAN CELL VOLUME 90.1 fl (81-100); MEAN CORPUSCULAR HGB CONC 34.4 pg (28.0-36.0); MEAN PLATELET VOLUME 8.2 fl; MONOCYTE ABSOLUTE 0.6 Th/cmm (0.3-1.0); RED BLOOD COUNT 3.22 Mil/cmm (3.80-5.20); RED CELL DISTRIBUTION WIDTH 13.2 % (11.5-20.0)
[2017-12-25 10:43] LABS: ALB/GLOB RATIO 1.3 (1.0-1.8); ALBUMIN 2.9 gm/dL (3.7-5.3); ALKALINE PHOSPHATASE 81 U/L (34-104); ANION GAP 12.8 (7.0-16.0); BILIRUBIN,TOTAL 0.6 mg/dL (0.3-1.0); BUN - UREA NITROGEN 41 mg/dL (7-25); CARBON DIOXIDE 17.7 mEq/L (21.0-31.0); CHLORIDE 109 mEq/L (98-107); CREATININE - SERUM 1.5 mg/dL (0.6-1.2); POTASSIUM SERUM 3.5 mEq/L (3.5-5.1); SGOT 21 U/L (13-39); SGPT/ALT 16 U/L (7-52); SODIUM SERUM 136 mEq/L (136-145); TOTAL PROTEIN,SERUM 5.1 gm/dL (6.0-8.3)
[2017-12-25 10:47] LABS: % BASOPHILS 1.7 % (0.0-2.0); % EOSINOPHILS 3.6 % (0.0-5.0); % LYMPHOCYTES 91.1 % (20.0-50.0); % MONOCYTES 3.6 % (2.0-10.0); NEUTROPHILE ABSOLUTE 16.5 Th/cmm (1.8-8.0)
[2017-12-25 10:48] LABS: PLATELET COUNT 99 Th/cmm (150-400)
[2017-12-25 10:52] LABS: GLUCOSE 243 mg/dL (70-105)
--- NOTE | 2017-12-25 11:05 | Internal Medicine Prog Note ---
Internal Medicine Subjective - Subjective Service Date: 12/25/17 ([facility] [id number]) Internal Medicine Objective - Results Result Diagrams: 12/25/17 04:35 12/25/17 04:35 Recent Labs: Laboratory Last Values WBC 18.0 Th/cmm (4.8-10.8) H D 12/25/17 04:35 RBC 3.22 Mil/cmm (3.80-5.20) L 12/25/17 04:35 Hgb 10.0 gm/dL (12-16) L D 12/25/17 04:35 Hct 29.0 % (41.0-60) L D 12/25/17 04:35 MCV 90.1 fl (81-100) 12/25/17 04:35 MCH 31.0 pg (27.0-31.0) 12/25/17 04:35 MCHC Differential 34.4 pg (28.0-36.0) 12/25/17 04:35 RDW 13.2 % (11.5-20.0) 12/25/17 04:35 Plt Count 99 Th/cmm (150-400) L D 12/25/17 04:35 MPV 8.2 fl 12/25/17 04:35 Band Neutrophils % 19 % (0-10) H 12/24/17 22:09 Lymphocytes % 91.1 % (20.0-50.0) H 12/25/17 04:35 Monocytes % 3.6 % (2.0-10.0) 12/25/17 04:35 Eosinophils % 3.6 % (0.0-5.0) 12/25/17 04:35 Basophils % 1.7 % (0.0-2.0) 12/25/17 04:35 Neutrophils (Manual) 61 % (40-80) 12/24/17 22:09 Lymphocytes 13 % (20-50) L 12/24/17 22:09 Monocytes 6 % (2-10) 12/24/17 22:09 Eosinophils 1 % (0-5) 12/24/17 22:09 Platelet Estimate ADEQUATE (NORMAL) 12/24/17 22:09 PT 11.2 SECONDS (9.5-11.5) 12/24/17 22:09 INR 1.08 (0.5-1.4) 12/24/17 22:09 PTT (Actin FS) 32.3 SECONDS (26.0-38.0) 12/24/17 22:09 Sodium 136 mEq/L (136-145) 12/25/17 04:35 Potassium 3.5 mEq/L (3.5-5.1) 12/25/17 04:35 Chloride 109 mEq/L (98-107) H 12/25/17 04:35 Carbon Dioxide 17.7 mEq/L (21.0-31.0) L 12/25/17 04:35 Anion Gap 12.8 (7.0-16.0) 12/25/17 04:35 BUN 41 mg/dL (7-25) H 12/25/17 04:35 Creatinine 1.5 mg/dL (0.6-1.2) H 12/25/17 04:35 Est GFR ( Amer) TNP 12/25/17 04:35 Est GFR (Non-Af Amer) TNP 12/25/17 04:35 BUN/Creatinine Ratio 27.3 12/25/17 04:35 Glucose 243 mg/dL (70-105) H D 12/25/17 04:35 Whole Bld Lactic Acid 3.25 mmol/L (0.60-1.99) H* 12/25/17 00:15 Calcium 7.0 mg/dL (8.6-10.3) L 12/25/17 04:35 Total Bilirubin 0.6 mg/dL (0.3-1.0) 12/25/17 04:35 AST 21 U/L (13-39) 12/25/17 04:35 ALT 16 U/L (7-52) 12/25/17 04:35 Alkaline Phosphatase 81 U/L (34-104) 12/25/17 04:35 Total Protein 5.1 gm/dL (6.0-8.3) L 12/25/17 04:35 Albumin 2.9 gm/dL (3.7-5.3) L 12/25/17 04:35 Globulin 2.2 gm/dL 12/25/17 04:35 Albumin/Globulin Ratio 1.3 (1.0-1.8) 12/25/17 04:35 Urine Source [place] 12/24/17 22:50 Urine Color YELLOW 12/24/17 22:50 Urine Clarity HAZY (CLEAR) 12/24/17 22:50 Urine pH 7.0 (4.6 - 8.0) 12/24/17 22:50 Ur Specific [place] 1.020 (1.005-1.030) 12/24/17 22:50 Urine Protein 100 mg/dL (NEGATIVE) H 12/24/17 22:50 Urine Glucose (UA) NEGATIVE mg/dL (NEGATIVE) 12/24/17 22:50 Urine Ketones 15 mg/dL (NEGATIVE) H 12/24/17 22:50 Urine Blood LARGE (NEGATIVE) H 12/24/17 22:50 Urine Nitrate NEGATIVE (NEGATIVE) 12/24/17 22:50 Urine Bilirubin SMALL (NEGATIVE) H 12/24/17 22:50 Urine Urobilinogen 0.2 E.U./dL (0.2 - 1.0) 12/24/17 22:50 Ur Leukocyte Esterase LARGE (NEGATIVE) H 12/24/17 22:50 Urine RBC 0-2 /hpf (0-5) 12/24/17 22:50 Urine WBC 50-100 /hpf (0-5) H 12/24/17 22:50 Ur Epithelial Cells MODERATE /lpf (FEW) 12/24/17 22:50 Urine Bacteria MANY /hpf (NONE SEEN) H 12/24/17 22:50 - Physical Exam Vitals and I&O: Vital Signs Temp 98.3 F 12/25/17 07:00 Pulse 89 12/25/17 07:15 Resp 20 12/25/17 07:15 BP 100/62 12/25/17 07:00 Pulse Ox 98 12/25/17 07:15 Intake & Output 12/24/17 12/25/17 12/25/17 18:59 06:59 18:59 Intake Total 3600 Output Total 350 Balance 3250 Weight (lbs) 181 lb 1.6 oz Intake: Intake, IV Amount 3600 Piperacillin Sodium/ 100 Tazobact 2.25 gm In Sodium Chloride 0.9% 100 ml @ 100 mls/hr IV Q8HR [facility] Rx#:[id number] Sodium Chloride 0.9% 1, 1000 000 ml @ Wide Open IV . Q0M ONE Rx#:[id number] Sodium Chloride 0.9% 1, 1000 000 ml @ Wide Open IV . Q0M ONE Rx#:[id number] Output: Urine 350 Other: # Voids 2 # Bowel Movements 0 Weight Source Bedscale Active Medications: Current Medications Acetaminophen (Tylenol) 650 mg PO Q6HR PRN PRN Reason: Pain or Fever >101 Stop: 02/22/18 23:20 Albuterol Sulfate (Albuterol 2.5mg/3ml Neb Ud) 2.5 mg HHN Q4H PRN PRN Reason: Shortness of Breath Albuterol Sulfate (Albuterol 2.5mg/3ml Neb Ud) 2.5 mg HHN QIDRT [facility] Stop: 02/23/18 06:59 Last Admin: 12/25/17 07:15 Dose: 2.5 mg Bisacodyl (Dulcolax 10 Mg Supp) 10 mg RC Q48H PRN PRN Reason: Constipation Stop: 02/22/18 23:20 Docusate Sodium (Colace) 100 mg PO BID [facility] Stop: 02/23/18 08:59 Last Admin: 12/25/17 10:20 Dose: 100 mg Dextrose/Sodium Chloride (D5-0.9%Ns) 1,000 mls @ 100 mls/hr IV .Q10H [facility] Stop: 02/22/18 23:29 Last Admin: 12/25/17 01:01 Dose: 100 mls/hr Piperacillin Sod/Tazobactam (Sod 2.25 gm/ Sodium Chloride) 100 mls @ 100 mls/ hr IV Q8HR [facility] Stop: 02/23/18 04:59 Last Infusion: 12/25/17 06:20 Dose: Infused Ipratropium [place] (Atrovent Neb 0.5mg/2.5ml) 0.5 mg HHN QIDRT [facility] Stop: 02/23/18 06:59 Last Admin: 12/25/17 07:15 Dose: 0.5 mg Levothyroxine Sodium (Synthroid) 0.025 mg PO QDAC [facility] Stop: 02/23/18 07:29 Last Admin: 12/25/17 10:20 Dose: 0.025 mg Ondansetron HCl (Zofran) 4 mg IV Q8H PRN PRN Reason: Nausea / Vomiting Stop: 02/22/18 23:22 Prednisone (Deltasone) 5 mg PO BID [facility] Stop: 08/14/18 08:59 Last Admin: 12/25/17 10:21 Dose: 5 mg Rivaroxaban (Xarelto) 10 mg PO DAILY [facility] Stop: 02/23/18 08:59 Last Admin: 12/25/17 10:24 Dose: 10 mg Senna (Senna) 8.6 mg PO HS [facility] Stop: 02/23/18 20:59 - Procedures Procedures: Procedures Procedure Code Date TANIA MUSC/FASCIA 20 SQ CM/< 65167 10/20/12 EXC LES SOFT TISSUE NEC 83.39 10/20/12 OPEN REDUC-INT FIX FEMUR 79.35 10/20/12 OTHER GROUP THERAPY 94.44 08/04/14 PACKED CELL TRANSFUSION 99.04 10/20/12 PARTIAL HIP REPLACEMENT 81.52 10/20/12 PARTIAL HIP REPLACEMENT 95560 10/20/12 RECREATIONAL THERAPY 93.81 12/29/11 TREAT THIGH FRACTURE 57842 10/20/12
[2017-12-25] MEDS: D5-0.9%NS 1,000 ML IV SCH (13:00)
--- NOTE | 2017-12-25 13:18 | History & Physical ---
ADMIT DATE: 12/25/2017 DICTATED FOR: Dr. Oswald Gilbert CHIEF COMPLAINT: Coffee-ground emesis. HISTORY OF PRESENT ILLNESS: This is a 72-year-old female who is a custodial resident, admitted to the ICU unit due to coffee-ground emesis. The patient also had an episode of hypotension. The patient was given 25% of albumin and blood pressure has improved. At this time, the patient is awake, alert, not really interactive. The patient's abdomen is noted with mild distention. PAST MEDICAL HISTORY: Hypertension, asthma, COPD, hypercholesteremia, debilitation, hypothyroidism. PAST SURGICAL HISTORY: None. ALLERGIES: No drug allergies. MEDICATIONS: Fosamax, vitamin C, Dulcolax, calcium, Coreg, Colace, iron, Synthroid, mirtazapine, Seroquel, Xarelto, and simvastatin. FAMILY HISTORY: Noncontributory. SOCIAL HISTORY: The patient is a custodial resident requiring 24-hour nursing care. REVIEW OF SYSTEMS: Unable to obtain due to the patient's mental status. PHYSICAL EXAMINATION: GENERAL: Elderly female, awake, alert, in no apparent distress. VITAL SIGNS: Temperature 98.3, heart rate 85, blood pressure 100/62, respirations 23, O2 98%. HEENT: Head; normocephalic, atraumatic. NECK: Supple. No mass. LUNGS: Clear bilaterally. . ABDOMEN: Mildly distended, nontender. LABORATORY DATA: WBC 18.0, H and H 10.0/29.0, platelet of 99. Sodium 136, potassium 3.5, chloride 109, BUN 41, creatinine 1.5, lactic acid of 3.25. The patient had a urinalysis done, positive for UTI. DIAGNOSTICS: The patient had a chest x-ray done, impression is no acute abnormalities. ASSESSMENT: Sepsis, hypotension which has improved. Possible GI bleed. Acute UTI. Acute renal insufficiency, rule out dehydration. Protein-calorie malnutrition. Hypertension, asthma, COPD, hypercholesteremia, debilitation, hypothyroidism. PLAN: We will keep the patient on IV fluids for hydration. We will order a KUB, keep the patient on IV antibiotics of Zosyn. Continue Xarelto. We will get a followup chest x-ray for tomorrow morning. We will send urine for cultures. We will get wound care on the case as well. We will continue to follow this patient. JOB# [id number]
[2017-12-25 20:20] LABS: A1C % 5.3 % (4.0-6.0)
[2017-12-26 05:28] LABS: EOSINOPHILE ABSOLUTE 0.1 Th/cmm (0.1-0.4); HEMATOCRIT 29.3 % (41.0-60); HEMOGLOBIN 10.1 gm/dL (12-16); LYMPHOCYTE ABSOLUTE 0.5 Th/cmm (1.5-3.0); MANUAL DIFF REQUIRED? YES; MEAN CELL VOLUME 88.6 fl (81-100); MEAN CORPUSCULAR HEMOGLOBIN 30.6 pg (27.0-31.0); MEAN CORPUSCULAR HGB CONC 34.6 pg (28.0-36.0); MEAN PLATELET VOLUME 7.7 fl; MONOCYTE ABSOLUTE 0.7 Th/cmm (0.3-1.0); NEUTROPHILE ABSOLUTE 17.6 Th/cmm (1.8-8.0); PLATELET COUNT 68 Th/cmm (150-400); RED BLOOD COUNT 3.31 Mil/cmm (3.80-5.20)
[2017-12-26 05:33] LABS: ANION GAP 10.7 (7.0-16.0); BUN - UREA NITROGEN 29 mg/dL (7-25); CALCIUM SERUM 7.1 mg/dL (8.6-10.3); CARBON DIOXIDE 17.2 mEq/L (21.0-31.0); CHLORIDE 112 mEq/L (98-107); CREATININE - SERUM 1.3 mg/dL (0.6-1.2); GLUCOSE 159 mg/dL (70-105); SODIUM SERUM 137 mEq/L (136-145)
[2017-12-26 05:34] LABS: WHITE BLOOD COUNT 18.9 Th/cmm (4.8-10.8)
[2017-12-26] MEDS: Piperacillin Sodium/Tazobact 2.25 GM in Sodium Chloride 0.9% 100 ML IV SCH ×3 (05:43→20:42)
[2017-12-26] MEDS: D5-0.9%NS 1,000 ML IV SCH (05:44)
[2017-12-26 06:32] LABS: POTASSIUM SERUM 2.9 mEq/L (3.5-5.1)
[2017-12-26 06:39] LABS: BAND NEUTROPHILE 24 % (0-10); BASOPHIL 0 % (0-3); EOSINOPHIL 0 % (0-5); LYMPHOCYTE 4 % (20-50); MONOCYTE 3 % (2-10); NEUTROPHILS 69 % (40-80); PLATELET ESTIMATE DECREASED PLATELETS (NORMAL); PLATELET MORPHOLOGY NORMAL (NORMAL); TOTAL CELLS COUNTED 100
[2017-12-26] MEDS: Ipratropium Neb 0.5 mg/2.5 mL UD HHN SCH ×4 (07:48→18:38)
[2017-12-26] MEDS: Albuterol Nebulizer 2.5mg/3mL HHN SCH ×4 (07:48→18:38)
[2017-12-26] MEDS: KCL 20mEq/100mL Premix 40 MEQ/200 ML PIGGYBACK IV SCH ×2 (08:46→10:39)
--- NOTE | 2017-12-26 09:05 | Diagnostic Imaging Report ---
Portable chest x-ray HISTORY: Cough Compared with the prior exam of December 24, 2017, the heart is enlarged. Evidence of bilateral pleural effusions (left greater than right). There is a degree of pulmonary vascular redistribution consistent with cardiac decompensation. No andrea pulmonary edema. IMPRESSION: 1. Cardiomegaly with evidence of small bilateral pleural effusions and findings suggesting a degree of congestive heart failure. Clinical correlation is needed.
--- NOTE | 2017-12-26 09:09 | Diagnostic Imaging Report ---
KUB abdominal film HISTORY: Abdominal distention The exam demonstrates distended stool-filled rectum and sigmoid colon. Changes may be related to a fecal impaction. Mildly dilated air filled large and small bowel noted. No free and peritoneal air. Severe deformity about the right hip associated with the right hip arthroplasty an additional surgical changes. IMPRESSION: Mildly distended air-filled large and small bowel along with the stool-filled rectum and sigmoid colon. Changes suggest possible fecal impaction. Clinical correlation is needed.
[2017-12-26] MEDS: Levothyroxine 0.025 Mg Tab PO SCH (10:25)
[2017-12-26] MEDS: Multivitamin w/ Minerals Tab PO SCH (10:25)
[2017-12-27] MEDS: Piperacillin Sodium/Tazobact 2.25 GM in Sodium Chloride 0.9% 100 ML IV SCH ×3 (04:59→20:58)
[2017-12-27] MEDS: Albuterol Nebulizer 2.5mg/3mL HHN SCH ×4 (07:47→18:46)
[2017-12-27] MEDS: Ipratropium Neb 0.5 mg/2.5 mL UD HHN SCH ×4 (07:47→18:46)
[2017-12-27] MEDS: Levothyroxine 0.025 Mg Tab PO SCH (09:03)
[2017-12-27] MEDS: Multivitamin w/ Minerals Tab PO SCH (09:03)
[2017-12-27 09:24] LABS: MEAN CELL VOLUME 90.2 fl (81-100); MEAN PLATELET VOLUME 8.2 fl
[2017-12-27 09:33] LABS: HEMATOCRIT 31.1 % (41.0-60); HEMOGLOBIN 10.7 gm/dL (12-16); MANUAL DIFF REQUIRED? YES; MEAN CORPUSCULAR HEMOGLOBIN 30.9 pg (27.0-31.0); MEAN CORPUSCULAR HGB CONC 34.3 pg (28.0-36.0); PLATELET COUNT 74 Th/cmm (150-400); RED BLOOD COUNT 3.44 Mil/cmm (3.80-5.20); RED CELL DISTRIBUTION WIDTH 13.4 % (11.5-20.0); WHITE BLOOD COUNT 11.5 Th/cmm (4.8-10.8)
[2017-12-27 09:41] LABS: ALBUMIN 2.7 gm/dL (3.7-5.3); ALKALINE PHOSPHATASE 89 U/L (34-104); ANION GAP 10.3 (7.0-16.0); BILIRUBIN,TOTAL 0.4 mg/dL (0.3-1.0); BUN - UREA NITROGEN 22 mg/dL (7-25); CALCIUM SERUM 8.2 mg/dL (8.6-10.3); CARBON DIOXIDE 17.8 mEq/L (21.0-31.0); CHLORIDE 119 mEq/L (98-107); CREATININE - SERUM 1.1 mg/dL (0.6-1.2); GLUCOSE 114 mg/dL (70-105); POTASSIUM SERUM 4.1 mEq/L (3.5-5.1); SGOT 16 U/L (13-39); SGPT/ALT 16 U/L (7-52); SODIUM SERUM 143 mEq/L (136-145); TOTAL PROTEIN,SERUM 5.3 gm/dL (6.0-8.3)
[2017-12-27 09:48] LABS: BAND NEUTROPHILE 4 % (0-10); BASOPHIL 0 % (0-3); EOSINOPHIL 0 % (0-5); LYMPHOCYTE 7 % (20-50); MONOCYTE 3 % (2-10); NEUTROPHILS 86 % (40-80); PLATELET ESTIMATE DECREASED PLATELETS (NORMAL); TOTAL CELLS COUNTED 100
[2017-12-27] MEDS: D5-0.9%NS 1,000 ML IV SCH (15:25)
--- NOTE | 2017-12-27 16:26 | Internal Medicine Prog Note ---
Internal Medicine Subjective - Subjective Service Date: 12/27/17 Patient seen and examined:: with staff Patient is:: awake, verbal, confused Per staff patient has:: tolerating meds Internal Medicine Objective - Results Result Diagrams: 12/27/17 09:15 12/27/17 09:15 Recent Labs: Laboratory Last Values WBC 11.5 Th/cmm (4.8-10.8) H 12/27/17 09:15 RBC 3.44 Mil/cmm (3.80-5.20) L 12/27/17 09:15 Hgb 10.7 gm/dL (12-16) L 12/27/17 09:15 Hct 31.1 % (41.0-60) L 12/27/17 09:15 MCV 90.2 fl (81-100) 12/27/17 09:15 MCH 30.9 pg (27.0-31.0) 12/27/17 09:15 MCHC Differential 34.3 pg (28.0-36.0) 12/27/17 09:15 RDW 13.4 % (11.5-20.0) 12/27/17 09:15 Plt Count 74 Th/cmm (150-400) L 12/27/17 09:15 MPV 8.2 fl 12/27/17 09:15 Band Neutrophils % 4 % (0-10) 12/27/17 09:15 Lymphocytes % 91.1 % (20.0-50.0) H 12/25/17 04:35 Monocytes % 3.6 % (2.0-10.0) 12/25/17 04:35 Eosinophils % 3.6 % (0.0-5.0) 12/25/17 04:35 Basophils % 1.7 % (0.0-2.0) 12/25/17 04:35 Neutrophils (Manual) 86 % (40-80) H 12/27/17 09:15 Lymphocytes 7 % (20-50) L 12/27/17 09:15 Monocytes 3 % (2-10) 12/27/17 09:15 Eosinophils 0 % (0-5) 12/27/17 09:15 Basophils 0 % (0-3) 12/27/17 09:15 Platelet Estimate DECREASED PLATELETS (NORMAL) 12/27/17 09:15 Platelet Morphology NORMAL (NORMAL) 12/26/17 04:40 RBC Morph Micro Appear NORMAL (NORMAL) 12/26/17 04:40 PT 11.2 SECONDS (9.5-11.5) 12/24/17 22:09 INR 1.08 (0.5-1.4) 12/24/17 22:09 PTT (Actin FS) 32.3 SECONDS (26.0-38.0) 12/24/17 22:09 Sodium 143 mEq/L (136-145) 12/27/17 09:15 Potassium 4.1 mEq/L (3.5-5.1) 12/27/17 09:15 Chloride 119 mEq/L (98-107) H 12/27/17 09:15 Carbon Dioxide 17.8 mEq/L (21.0-31.0) L 12/27/17 09:15 Anion Gap 10.3 (7.0-16.0) 12/27/17 09:15 BUN 22 mg/dL (7-25) 12/27/17 09:15 Creatinine 1.1 mg/dL (0.6-1.2) 12/27/17 09:15 Est GFR ( Amer) TNP 12/27/17 09:15 Est GFR (Non-Af Amer) TNP 12/27/17 09:15 BUN/Creatinine Ratio 20.0 12/27/17 09:15 Glucose 114 mg/dL (70-105) H 12/27/17 09:15 Hemoglobin A1c % 5.3 % (4.0-6.0) 12/25/17 04:35 Whole Bld Lactic Acid 3.25 mmol/L (0.60-1.99) H* 12/25/17 00:15 Calcium 8.2 mg/dL (8.6-10.3) L 12/27/17 09:15 Total Bilirubin 0.4 mg/dL (0.3-1.0) 12/27/17 09:15 AST 16 U/L (13-39) 12/27/17 09:15 ALT 16 U/L (7-52) 12/27/17 09:15 Alkaline Phosphatase 89 U/L (34-104) 12/27/17 09:15 B-Natriuretic Peptide 276.0 pg/mL (5.0-100.0) H 12/26/17 06:00 Total Protein 5.3 gm/dL (6.0-8.3) L 12/27/17 09:15 Albumin 2.7 gm/dL (3.7-5.3) L 12/27/17 09:15 Globulin 2.6 gm/dL 12/27/17 09:15 Albumin/Globulin Ratio 1.0 (1.0-1.8) 12/27/17 09:15 Urine Source [place] 12/24/17 22:50 Urine Color YELLOW 12/24/17 22:50 Urine Clarity HAZY (CLEAR) 12/24/17 22:50 Urine pH 7.0 (4.6 - 8.0) 12/24/17 22:50 Ur Specific [place] 1.020 (1.005-1.030) 12/24/17 22:50 Urine Protein 100 mg/dL (NEGATIVE) H 12/24/17 22:50 Urine Glucose (UA) NEGATIVE mg/dL (NEGATIVE) 12/24/17 22:50 Urine Ketones 15 mg/dL (NEGATIVE) H 12/24/17 22:50 Urine Blood LARGE (NEGATIVE) H 12/24/17 22:50 Urine Nitrate NEGATIVE (NEGATIVE) 12/24/17 22:50 Urine Bilirubin SMALL (NEGATIVE) H 12/24/17 22:50 Urine Urobilinogen 0.2 E.U./dL (0.2 - 1.0) 12/24/17 22:50 Ur Leukocyte Esterase LARGE (NEGATIVE) H 12/24/17 22:50 Urine RBC 0-2 /hpf (0-5) 12/24/17 22:50 Urine WBC 50-100 /hpf (0-5) H 12/24/17 22:50 Ur Epithelial Cells MODERATE /lpf (FEW) 12/24/17 22:50 Urine Bacteria MANY /hpf (NONE SEEN) H 12/24/17 22:50 Random Vancomycin 20.4 ug/mL (5.0-40.0) 12/27/17 09:15 - Physical Exam Vitals and I&O: Vital Signs Temp 98.6 F 12/27/17 12:00 Pulse 96 12/27/17 15:50 Resp 25 12/27/17 15:50 BP 113/79 12/27/17 15:00 Pulse Ox 98 12/27/17 15:50 Intake & Output 12/26/1718 12/27/17 18:59 06:59 18:59 Intake Total 701.944 9294 Output Total 1600 800 Balance -765.833 870 Weight (lbs) 181 lb 181 lb Intake: Intake, IV Amount 116.457 7477 D5-0.9%Ns 1,000 ml @ 60 1000 mls/hr IV .[id number] [facility] Rx #:[id number] KCL 20mEq/100mL Premix 40 94.167 meq In 200 ml @ 50 mls/ hr IV Q2H [facility] Rx#: [id number] Piperacillin Sodium/ 100 200 Tazobact 2.25 gm In Sodium Chloride 0.9% 100 ml @ 100 mls/hr IV Q8HR [facility] Rx#:[id number] Vancomycin HCl 1 gm In 250 Sodium Chloride 0.9% 250 ml @ 165 mls/hr IV Q24HR@ 2100 [facility] Rx#:[id number] Oral 640 220 Output: Urine 1600 800 Other: # Bowel Movements 1 Stool Characteristics Soft Liquid Brown Weight Source Bedscale Bedscale Active Medications: Current Medications Acetaminophen (Tylenol) 650 mg PO Q6HR PRN PRN Reason: Pain or Fever >101 Stop: 02/22/18 23:20 Last Admin: 12/25/17 23:37 Dose: 650 mg Albuterol Sulfate (Albuterol 2.5mg/3ml Neb Ud) 2.5 mg HHN Q4H PRN PRN Reason: Shortness of Breath Albuterol Sulfate (Albuterol 2.5mg/3ml Neb Ud) 2.5 mg HHN QIDRT [facility] Stop: 02/23/18 06:59 Last Admin: 12/27/17 15:46 Dose: 2.5 mg Alprazolam (Xanax) 0.5 mg PO Q8H PRN; Protocol PRN Reason: Anxiety Stop: 02/23/18 23:51 Last Admin: 12/26/17 01:00 Dose: 0.5 mg Bisacodyl (Dulcolax 10 Mg Supp) 10 mg RC Q48H PRN PRN Reason: Constipation Stop: 02/22/18 23:20 Docusate Sodium (Colace) 100 mg PO BID [facility] Stop: 02/23/18 08:59 Last Admin: 12/27/17 09:03 Dose: 100 mg Piperacillin Sod/Tazobactam (Sod 2.25 gm/ Sodium Chloride) 100 mls @ 100 mls/ hr IV Q8HR [facility] Stop: 02/23/18 04:59 Last Admin: 12/27/17 13:10 Dose: 100 mls/hr Dextrose/Sodium Chloride (D5-0.9%Ns) 1,000 mls @ 60 mls/hr IV .[id number] [facility] Stop: 02/23/18 12:44 Last Admin: 12/27/17 15:25 Dose: 60 mls/hr Vancomycin HCl 1 gm/ Sodium (Chloride) 250 mls @ 165 mls/hr IV Q24HR@1000 [facility] Stop: 02/25/18 10:59 Last Admin: 12/27/17 14:11 Dose: 165 mls/hr Ipratropium Ava (Atrovent Neb 0.5mg/2.5ml) 0.5 mg HHN QIDRT [facility] Stop: 02/23/18 06:59 Last Admin: 12/27/17 15:46 Dose: 0.5 mg Levothyroxine Sodium (Synthroid) 0.025 mg PO QDAC [facility] Stop: 02/23/18 07:29 Last Admin: 12/27/17 09:03 Dose: 0.025 mg Miscellaneous (Vancomycin Iv Per Pharmacy) 1 ea MC PRN PRN PRN Reason: PROTOCOL Stop: 02/24/18 07:36 Ondansetron HCl (Zofran) 4 mg IV Q8H PRN PRN Reason: Nausea / Vomiting Stop: 02/22/18 23:22 Last Admin: 12/25/17 23:37 Dose: 4 mg Prednisone (Deltasone) 5 mg PO BID [facility] Stop: 02/23/18 08:59 Last Admin: 12/27/17 09:04 Dose: 5 mg Quetiapine Fumarate (Seroquel) 100 mg PO HS [facility]; Protocol Stop: 02/24/18 20:59 Last Admin: 12/26/17 21:29 Dose: 100 mg Rivaroxaban (Xarelto) 10 mg PO DAILY [facility] Stop: 02/23/18 08:59 Last Admin: 12/27/17 09:04 Dose: 10 mg Senna (Senna) 8.6 mg PO HS [facility] Stop: 02/23/18 20:59 Last Admin: 12/26/17 21:29 Dose: 8.6 mg General: weak, alert HEENT: NC/AT Neck: Supple Lungs: CTAB Cardiovascular: RRR, Normal S1, Normal S2, without murmur Abdomen: soft, non-tender, non-distended, positive bowel sound Neurological: alert - Procedures Procedures: Procedures Procedure Code Date TANIA MUSC/FASCIA 20 SQ CM/< 91715 10/20/12 EXC LES SOFT TISSUE NEC 83.39 10/20/12 OPEN REDUC-INT FIX FEMUR 79.35 10/20/12 OTHER GROUP THERAPY 94.44 08/04/14 PACKED CELL TRANSFUSION 99.04 10/20/12 PARTIAL HIP REPLACEMENT 81.52 10/20/12 PARTIAL HIP REPLACEMENT 16819 10/20/12 RECREATIONAL THERAPY 93.81 12/29/11 TREAT THIGH FRACTURE 77380 10/20/12 Internal Medicine Assmt/Plan - Assessment Assessment: sepsis hypotension-improved possible gi bleed acute uti acute renal insufficiency r/o dehydration protein calorie malnutrition htn asthma copd hypercholesteremia debilitation hypothyroidism - Plan Plan: continue ivf for hydration monitor bp closely follow up labs in am continue current plan of care Nutritional Asmnt/Malnutr-PDOC - Dietary Evaluation Malnutrition Findings (Please click <Entered> for more info): Nutritional Asmnt/Malnutrition Start: 12/25/17 16: 23 Text: Status: Complete Freq: Protocol: Document 12/25/17 16:23 LCHENG (Rec: 12/25/17 16:36 LCHENG [email or web address]) Nutritional Asmnt/Malnutrition Patient General Information Nutritional Screening High Risk Consult Diagnosis reason for visitsepsis, hypothension Pertinent Medical Hx/Surgical Hx HTN, s/p UTI, depression, psychosis Subjective Information Pt seen lying in bed at time of visit, on O2 mask. [facility] soft chopped diet was started from lunch. RN phill alejo diet tolerance. Consult received for frannie score 12. Current Diet Order/ Nutrition Support [facility] soft chopped. Pertinent Medications D5-0.9%ns, colace, synthroid, piperacillin, senna, vancomycin Pertinent Labs 12/25 Cl 109, BUN 41, Cr 1.5, glucose 243 (trending up) 12/24 Na 132, Cl 97, BUN 28, Cr 2.1, glucose 138 Nutritional Hx/Data Height 5 ft 4 in Height (Calculated Centimeters) 162.6 Current Weight (lbs) 181 lb Weight (Calculated Kilograms) 82.1 Weight (Calculated Grams) 17166.2 [place] Body Weight 120 Body Mass Index (BMI) 31.0 GI Symptoms GI Symptoms None Last BM none Difficult in: None Skin Integrity/Comment: pitting 1+ edema to right and left lower extremities. reddened to sacrum Estimated Nutritional Goals BEE in Kcals: Adj wt of IBW Calories/Kcals/Kg 27-32 adj 61kg Kcals Calculated 2972-5683 Protein: Adj wt of IBW Protein g/k.2 Protein Calculated 73 Fluid: ml 1647-1952ml (1ml/kcal) Nutritional Problem 1. Problem Problem increased nutrition needs ( calorie and protein) Etiology increased metabolic demand Signs/Symptoms: dx of sepsis. Malnutrition Alert Is there a minimum of two criteria No selected? Query Text:Check all the applicable criteria. A minimum of two criteria are recommended for diagnosis of either severe or non-severe malnutrition. Malnutrition Related to Morbid Obesity Malnutrition related to morbid obesity No Intervention/Recommendation Comments 1. Continue with current diet as ordered. If glucose continue high, will consider CCHO diet. 2. Monitor PO intake, wt, labs and skin integrity 3. F/U as hgih risk in 2-3 days, 12/27-12/28 Expected Outcomes/Goals Expected Outcomes/Goals 1. PO intake to meet at least 75% of nutritional needs. 2. Wt stability, skin to remain intact, labs to approach WNL.
[2017-12-27] MEDS: D5-0.45NS 1,000 ML IV SCH (21:01)
[2017-12-27] MEDS ORDERED: Fleet Enema 135 mL RC ONE (22:45)
[2017-12-28] MEDS: Piperacillin Sodium/Tazobact 2.25 GM in Sodium Chloride 0.9% 100 ML IV SCH ×3 (04:33→21:50)
[2017-12-28 04:46] LABS: HEMATOCRIT 31.2 % (41.0-60); MEAN CORPUSCULAR HEMOGLOBIN 30.4 pg (27.0-31.0)
[2017-12-28 04:49] LABS: HEMOGLOBIN 10.4 gm/dL (12-16); MEAN CELL VOLUME 90.7 fl (81-100); MEAN CORPUSCULAR HGB CONC 33.5 pg (28.0-36.0); MEAN PLATELET VOLUME 8.2 fl; PLATELET COUNT 90 Th/cmm (150-400); RED BLOOD COUNT 3.44 Mil/cmm (3.80-5.20); RED CELL DISTRIBUTION WIDTH 13.5 % (11.5-20.0); WHITE BLOOD COUNT 12.2 Th/cmm (4.8-10.8)
[2017-12-28 04:56] LABS: ANION GAP 11.2 (7.0-16.0); BUN - UREA NITROGEN 22 mg/dL (7-25); CALCIUM SERUM 8.6 mg/dL (8.6-10.3); CARBON DIOXIDE 19.5 mEq/L (21.0-31.0); CHLORIDE 114 mEq/L (98-107); CREATININE - SERUM 1.2 mg/dL (0.6-1.2); GLUCOSE 139 mg/dL (70-105); MANUAL DIFF REQUIRED? YES; POTASSIUM SERUM 4.7 mEq/L (3.5-5.1); SODIUM SERUM 140 mEq/L (136-145)
[2017-12-28] MEDS: Albuterol Nebulizer 2.5mg/3mL HHN SCH ×4 (06:56→18:45)
[2017-12-28] MEDS: Ipratropium Neb 0.5 mg/2.5 mL UD HHN SCH ×4 (06:56→18:45)
[2017-12-28 07:21] LABS: TOTAL CELLS COUNTED 100
[2017-12-28 07:22] LABS: BAND NEUTROPHILE 3 % (0-10); EOSINOPHIL 2 % (0-5); LYMPHOCYTE 10 % (20-50); MONOCYTE 2 % (2-10); NEUTROPHILS 83 % (40-80); PLATELET ESTIMATE DECREASED PLATELETS (NORMAL)
[2017-12-28] MEDS: Multivitamin w/ Minerals Tab PO SCH (08:30)
[2017-12-28] MEDS: Levothyroxine 0.025 Mg Tab PO SCH (08:30)
--- NOTE | 2017-12-28 10:53 | Diagnostic Imaging Report ---
CHEST X-RAY: AP view INDICATION: NG tube placement COMPARISON: 12/26/2017 FINDINGS: NG tube is seen with tip in the stomach. Bibasal atelectatic changes are noted. Gas-filled loops of bowel the upper abdomen are noted. No focal consolidation or effusions. IMPRESSION: NG tube within the stomach.
[2017-12-28] MEDS ORDERED: Magnesium Citrate 1.75 GM/300 mL Bottle NG ONE (11:25)
--- NOTE | 2017-12-28 11:49 | Internal Medicine Prog Note ---
Internal Medicine Subjective - Subjective Service Date: 12/28/17 (patient had episodes of coffee ground emesis lastnight and NGT was placed this morning) Patient seen and examined:: with staff Patient is:: awake, verbal, confused Per staff patient has:: tolerating meds Internal Medicine Objective - Results Result Diagrams: 12/28/17 04:20 12/28/17 04:20 Recent Labs: Laboratory Last Values WBC 12.2 Th/cmm (4.8-10.8) H 12/28/17 04:20 RBC 3.44 Mil/cmm (3.80-5.20) L 12/28/17 04:20 Hgb 10.4 gm/dL (12-16) L 12/28/17 04:20 Hct 31.2 % (41.0-60) L 12/28/17 04:20 MCV 90.7 fl (81-100) 12/28/17 04:20 MCH 30.4 pg (27.0-31.0) 12/28/17 04:20 MCHC Differential 33.5 pg (28.0-36.0) 12/28/17 04:20 RDW 13.5 % (11.5-20.0) 12/28/17 04:20 Plt Count 90 Th/cmm (150-400) L 12/28/17 04:20 MPV 8.2 fl 12/28/17 04:20 Band Neutrophils % 3 % (0-10) 12/28/17 04:20 Lymphocytes % 91.1 % (20.0-50.0) H 12/25/17 04:35 Monocytes % 3.6 % (2.0-10.0) 12/25/17 04:35 Eosinophils % 3.6 % (0.0-5.0) 12/25/17 04:35 Basophils % 1.7 % (0.0-2.0) 12/25/17 04:35 Neutrophils (Manual) 83 % (40-80) H 12/28/17 04:20 Lymphocytes 10 % (20-50) L 12/28/17 04:20 Monocytes 2 % (2-10) 12/28/17 04:20 Eosinophils 2 % (0-5) 12/28/17 04:20 Basophils 0 % (0-3) 12/27/17 09:15 Platelet Estimate DECREASED PLATELETS (NORMAL) 12/28/17 04:20 Platelet Morphology NORMAL (NORMAL) 12/26/17 04:40 RBC Morph Micro Appear NORMAL (NORMAL) 12/26/17 04:40 PT 11.2 SECONDS (9.5-11.5) 12/24/17 22:09 INR 1.08 (0.5-1.4) 12/24/17 22:09 PTT (Actin FS) 32.3 SECONDS (26.0-38.0) 12/24/17 22:09 Sodium 140 mEq/L (136-145) 12/28/17 04:20 Potassium 4.7 mEq/L (3.5-5.1) 12/28/17 04:20 Chloride 114 mEq/L (98-107) H 12/28/17 04:20 Carbon Dioxide 19.5 mEq/L (21.0-31.0) L 12/28/17 04:20 Anion Gap 11.2 (7.0-16.0) 12/28/17 04:20 BUN 22 mg/dL (7-25) 12/28/17 04:20 Creatinine 1.2 mg/dL (0.6-1.2) 12/28/17 04:20 Est GFR ( Amer) TNP 12/28/17 04:20 Est GFR (Non-Af Amer) TNP 12/28/17 04:20 BUN/Creatinine Ratio 18.3 12/28/17 04:20 Glucose 139 mg/dL (70-105) H 12/28/17 04:20 Hemoglobin A1c % 5.3 % (4.0-6.0) 12/25/17 04:35 Whole Bld Lactic Acid 3.25 mmol/L (0.60-1.99) H* 12/25/17 00:15 Calcium 8.6 mg/dL (8.6-10.3) 12/28/17 04:20 Total Bilirubin 0.4 mg/dL (0.3-1.0) 12/27/17 09:15 AST 16 U/L (13-39) 12/27/17 09:15 ALT 16 U/L (7-52) 12/27/17 09:15 Alkaline Phosphatase 89 U/L (34-104) 12/27/17 09:15 B-Natriuretic Peptide 276.0 pg/mL (5.0-100.0) H 12/26/17 06:00 Total Protein 5.3 gm/dL (6.0-8.3) L 12/27/17 09:15 Albumin 2.7 gm/dL (3.7-5.3) L 12/27/17 09:15 Globulin 2.6 gm/dL 12/27/17 09:15 Albumin/Globulin Ratio 1.0 (1.0-1.8) 12/27/17 09:15 Urine Source [place] 12/24/17 22:50 Urine Color YELLOW 12/24/17 22:50 Urine Clarity HAZY (CLEAR) 12/24/17 22:50 Urine pH 7.0 (4.6 - 8.0) 12/24/17 22:50 Ur Specific [place] 1.020 (1.005-1.030) 12/24/17 22:50 Urine Protein 100 mg/dL (NEGATIVE) H 12/24/17 22:50 Urine Glucose (UA) NEGATIVE mg/dL (NEGATIVE) 12/24/17 22:50 Urine Ketones 15 mg/dL (NEGATIVE) H 12/24/17 22:50 Urine Blood LARGE (NEGATIVE) H 12/24/17 22:50 Urine Nitrate NEGATIVE (NEGATIVE) 12/24/17 22:50 Urine Bilirubin SMALL (NEGATIVE) H 12/24/17 22:50 Urine Urobilinogen 0.2 E.U./dL (0.2 - 1.0) 12/24/17 22:50 Ur Leukocyte Esterase LARGE (NEGATIVE) H 12/24/17 22:50 Urine RBC 0-2 /hpf (0-5) 12/24/17 22:50 Urine WBC 50-100 /hpf (0-5) H 12/24/17 22:50 Ur Epithelial Cells MODERATE /lpf (FEW) 12/24/17 22:50 Urine Bacteria MANY /hpf (NONE SEEN) H 12/24/17 22:50 Random Vancomycin 23.1 ug/mL (5.0-40.0) 12/28/17 04:20 - Physical Exam Vitals and I&O: Vital Signs Temp 97.0 F 12/28/17 08:00 Pulse 88 12/28/17 11:14 Resp 23 12/28/17 11:14 BP 141/82 12/28/17 09:00 Pulse Ox 97 12/28/17 11:14 Intake & Output 12/27/17 12/28/17 12/28/17 18:59 06:59 18:59 Intake Total 1030 Output Total 1750 Balance -720 Weight (lbs) 181 lb Intake: Intake, IV Amount 550 Piperacillin Sodium/ 300 Tazobact 2.25 gm In Sodium Chloride 0.9% 100 ml @ 100 mls/hr IV Q8HR [facility] Rx#:[id number] Vancomycin HCl 1 gm In 250 Sodium Chloride 0.9% 250 ml @ 165 mls/hr IV Q24HR@ 1000 [facility] Rx#:[id number] Oral 480 Output: Urine 1750 Other: # Bowel Movements 2 Stool Characteristics Soft Soft Liquid Liquid Brown Brown Weight Source Bedscale Active Medications: Current Medications Acetaminophen (Tylenol) 650 mg PO Q6HR PRN PRN Reason: Pain or Fever >101 Stop: 02/22/18 23:20 Last Admin: 12/25/17 23:37 Dose: 650 mg Albuterol Sulfate (Albuterol 2.5mg/3ml Neb Ud) 2.5 mg HHN Q4H PRN PRN Reason: Shortness of Breath Albuterol Sulfate (Albuterol 2.5mg/3ml Neb Ud) 2.5 mg HHN QIDRT [facility] Stop: 02/23/18 06:59 Last Admin: 12/28/17 11:14 Dose: 2.5 mg Alprazolam (Xanax) 0.5 mg PO Q8H PRN; Protocol PRN Reason: Anxiety Stop: 02/23/18 23:51 Last Admin: 12/26/17 01:00 Dose: 0.5 mg Bisacodyl (Dulcolax 10 Mg Supp) 10 mg RC Q48H PRN PRN Reason: Constipation Stop: 02/22/18 23:20 Last Admin: 12/27/17 18:22 Dose: 10 mg Docusate Sodium (Colace) 100 mg PO BID [facility] Stop: 02/23/18 08:59 Last Admin: 12/28/17 08:30 Dose: Not Given Piperacillin Sod/Tazobactam (Sod 2.25 gm/ Sodium Chloride) 100 mls @ 100 mls/ hr IV Q8HR [facility] Stop: 02/23/18 04:59 Last Infusion: 12/28/17 05:33 Dose: Infused Dextrose/Sodium Chloride (D5-0.45ns) 1,000 mls @ 40 mls/hr IV .Q24H [facility] Stop: 02/25/18 20:59 Last Admin: 12/27/17 21:01 Dose: 40 mls/hr Vancomycin HCl 1 gm/ Sodium (Chloride) 250 mls @ 165 mls/hr IV Q18H [facility] Stop: 02/26/18 09:59 Last Admin: 12/28/17 11:04 Dose: 165 mls/hr Ipratropium [place] (Atrovent Neb 0.5mg/2.5ml) 0.5 mg HHN QIDRT [facility] Stop: 02/23/18 06:59 Last Admin: 12/28/17 11:14 Dose: 0.5 mg Levothyroxine Sodium (Synthroid) 0.025 mg PO QDAC [facility] Stop: 02/23/18 07:29 Last Admin: 12/28/17 08:30 Dose: Not Given Miscellaneous (Vancomycin Iv Per Pharmacy) 1 ea MC PRN PRN PRN Reason: PROTOCOL Stop: 02/24/18 07:36 Ondansetron HCl (Zofran) 4 mg IV Q8H PRN PRN Reason: Nausea / Vomiting Stop: 02/22/18 23:22 Last Admin: 12/27/17 21:23 Dose: 4 mg Pantoprazole Sodium (Protonix) 40 mg IVP BID [facility] Stop: 02/26/18 16:59 Prednisone (Deltasone) 5 mg PO BID [facility] Stop: 02/23/18 08:59 Last Admin: 12/28/17 08:30 Dose: Not Given Quetiapine Fumarate (Seroquel) 100 mg PO [facility]; Protocol Stop: 02/24/18 20:59 Last Admin: 12/27/17 21:29 Dose: Not Given Rivaroxaban (Xarelto) 10 mg PO DAILY [facility] Stop: 02/23/18 08:59 Last Admin: 12/28/17 08:30 Dose: Not Given Senna (Senna) 8.6 mg PO HS [facility] Stop: 02/23/18 20:59 Last Admin: 12/27/17 21:28 Dose: Not Given General: weak, alert HEENT: NC/AT Neck: Supple Lungs: CTAB Cardiovascular: RRR, Normal S1, Normal S2, without murmur Abdomen: soft, non-tender, non-distended, positive bowel sound Neurological: alert - Procedures Procedures: Procedures Procedure Code Date TANIA MUSC/FASCIA 20 SQ CM/< 94203 10/20/12 EXC LES SOFT TISSUE NEC 83.39 10/20/12 OPEN REDUC-INT FIX FEMUR 79.35 10/20/12 OTHER GROUP THERAPY 94.44 08/04/14 PACKED CELL TRANSFUSION 99.04 10/20/12 PARTIAL HIP REPLACEMENT 81.52 10/20/12 PARTIAL HIP REPLACEMENT 23001 10/20/12 RECREATIONAL THERAPY 93.81 12/29/11 TREAT THIGH FRACTURE 81306 10/20/12 Internal Medicine Assmt/Plan - Assessment Assessment: sepsis hypotension-improved possible gi bleed acute uti acute renal insufficiency r/o dehydration protein calorie malnutrition htn asthma copd hypercholesteremia debilitation hypothyroidism - Plan Plan: possible EGD TODAY will nystatin powder continue ivf for hydration monitor bp closely follow up labs in am continue current plan of care Nutritional Asmnt/Malnutr-PDOC - Dietary Evaluation Malnutrition Findings (Please click <Entered> for more info): Nutritional Asmnt/Malnutrition Start: 12/25/17 16: 23 Text: Status: Complete Freq: Protocol: Document 12/25/17 16:23 LCHENG (Rec: 12/25/17 16:36 LCHENG [email or web address]) Nutritional Asmnt/Malnutrition Patient General Information Nutritional Screening High Risk Consult Diagnosis reason for visitsepsis, hypothension Pertinent Medical Hx/Surgical Hx HTN, s/p UTI, depression, psychosis Subjective Information Pt seen lying in bed at time of visit, on O2 mask. [facility] soft chopped diet was started from lunch. CARLEEN alejo diet tolerance. Consult received for frannie score 12. Current Diet Order/ Nutrition Support [facility] soft chopped. Pertinent Medications D5-0.9%ns, colace, synthroid, piperacillin, senna, vancomycin Pertinent Labs 12/25 Cl 109, BUN 41, Cr 1.5, glucose 243 (trending up) 12/24 Na 132, Cl 97, BUN 28, Cr 2.1, glucose 138 Nutritional Hx/Data Height 5 ft 4 in Height (Calculated Centimeters) 162.6 Current Weight (lbs) 181 lb Weight (Calculated Kilograms) 82.1 Weight (Calculated Grams) 22902.2 [place] Body Weight 120 Body Mass Index (BMI) 31.0 GI Symptoms GI Symptoms None Last BM none Difficult in: None Skin Integrity/Comment: pitting 1+ edema to right and left lower extremities. reddened to sacrum Estimated Nutritional Goals BEE in Kcals: Adj wt of IBW Calories/Kcals/Kg 27-32 adj 61kg Kcals Calculated 8505-4840 Protein: Adj wt of IBW Protein g/k.2 Protein Calculated 73 Fluid: ml 1647-1952ml (1ml/kcal) Nutritional Problem 1. Problem Problem increased nutrition needs ( calorie and protein) Etiology increased metabolic demand Signs/Symptoms: dx of sepsis. Malnutrition Alert Is there a minimum of two criteria No selected? Query Text:Check all the applicable criteria. A minimum of two criteria are recommended for diagnosis of either severe or non-severe malnutrition. Malnutrition Related to Morbid Obesity Malnutrition related to morbid obesity No Intervention/Recommendation Comments 1. Continue with current diet as ordered. If glucose continue high, will consider CCHO diet. 2. Monitor PO intake, wt, labs and skin integrity 3. F/U as hgih risk in 2-3 days, 12/27-12/28 Expected Outcomes/Goals Expected Outcomes/Goals 1. PO intake to meet at least 75% of nutritional needs. 2. Wt stability, skin to remain intact, labs to approach WNL.
[2017-12-28] MEDS ORDERED: NYSTATIN 100000 UNITS/GM POWD TP PRN (17:00)
[2017-12-28] MEDS: QUETIAPINE FUMARATE PO SCH (21:55)
[2017-12-29] MEDS: D5-0.45NS 1,000 ML IV SCH (01:29)
[2017-12-29] MEDS: Piperacillin Sodium/Tazobact 2.25 GM in Sodium Chloride 0.9% 100 ML IV SCH ×3 (06:24→20:34)
[2017-12-29] MEDS: Ipratropium Neb 0.5 mg/2.5 mL UD HHN SCH ×4 (07:07→19:09)
[2017-12-29] MEDS: Albuterol Nebulizer 2.5mg/3mL HHN SCH ×4 (07:07→19:09)
--- NOTE | 2017-12-29 07:12 | Consultation ---
DATE OF CONSULTATION: 12/28/2017 REASON FOR CONSULTATION: Coffee-ground emesis. HISTORY OF PRESENT ILLNESS: This consult was obtained through the courtesy of Dr. Gilbert for this 72-year-old with history of dementia, COPD, CVA, hypertension, hyperlipidemia, hypothyroidism, admitted to the hospital for coffee-ground emesis. The patient has been in the hospital for a couple of days. She had fecal impaction. She was found to have fecal impaction and ileus. The patient had couple of bowel movements. She still have distended abdomen. She is still vomiting. GI consult was called in for further evaluation. PAST MEDICAL HISTORY: Hypertension, COPD, dementia, hyperlipidemia, hypothyroidism, CVA. PAST SURGICAL HISTORY: Not known. SOCIAL HISTORY: Nonsmoker, nonalcoholic, and IV drug abuser. FAMILY HISTORY: Noncontributory. ALLERGIES: No known drug allergy. MEDICATIONS: On admission including Fosamax, vitamins, Dulcolax, calcium, Coreg, Colace, iron, Synthroid, Remeron, Seroquel, Xarelto, simvastatin; here at the hospital, she is on Tylenol, albuterol, Xanax, Dulcolax, Colace, Atrovent, Synthroid, vancomycin, Zofran, Zosyn, Seroquel, Xarelto, senna. REVIEW OF SYSTEMS: The patient is not able to provide any information. PHYSICAL EXAMINATION: GENERAL: The patient is awake, oriented to self. VITAL SIGNS: Blood pressure 141/82, heart rate 89, respiratory rate 22 and temperature is 97.0. HEAD AND NECK: Pupils reactive to light. Extraocular muscles could not be tested. Oral cavity, no lesion. HEENT: There is an NG tube. NECK: Supple. CHEST: Good air entry. LUNGS: Clear to auscultation. CARDIOVASCULAR SYSTEM: Regular rate and rhythm. No murmur or gallop. ABDOMEN: Distended but soft, not tender. Bowel sounds were present, but hypoactive. EXTREMITIES: Lower extremities, no edema. There is a foot drop. CENTRAL NERVOUS SYSTEM: Showed foot drop. Otherwise, unable to evaluate. LABORATORY DATA: Hemoglobin remained stable at 10.4, white count 12.2, platelets of 90. PT was 11.2 few days ago and albumin is 2.7. KUB as stated above. IMPRESSION: A 72-year-old with multiple medical problems, now with coffee-ground emesis, abdominal distention. ASSESSMENT AND PLAN: Coffee-ground emesis could be peptic ulcer disease, could be erosive esophagitis, could be gastritis following fecal impaction, abdominal distention and ileus. RECOMMENDATIONS: 1. PPI. 2. EGD in the morning. 3. Further recommendations to follow all to fecal impaction, abdominal distention, even though patient had couple of bowel movements, she still could be dispense or give mineral oil or mag citrate and then will check another KUB and then further recommendations to follow. Other medical problems such as hypertension, hypothyroidism, hyperlipidemia, COPD, dementia, CVA, etc., as per Dr. Gilbert. Thank you, Dr. Gilbert for allowing me to participate in the care of the patient. If you have any further questions, please let me know. JOB# [id number]
--- NOTE | 2017-12-29 07:40 | Diagnostic Imaging Report ---
KUB single view HISTORY: Abdominal pain. Distended abdomen COMPARISON: KUB on 12/25/2018 FINDINGS: An NG tube is seen within the stomach. Diffuse distended gas filled loops of bowel are noted. Right hip arthroplasty is noted. Venous degenerative changes of lower lumbar spine are noted. IMPRESSION: Diffuse gas-distended loops of bowel suggestive of a generalized ileus. Clinical correlation recommended NG tube in stomach.
[2017-12-29 07:56] LABS: % BASOPHILS 0.2 % (0.0-2.0); % EOSINOPHILS 2.2 % (0.0-5.0); % LYMPHOCYTES 17.2 % (20.0-50.0); % NEUTROPHILS 71.4 % (40.0-80.0); EOSINOPHILE ABSOLUTE 0.2 Th/cmm (0.1-0.4); HEMATOCRIT 30.8 % (41.0-60); HEMOGLOBIN 10.5 gm/dL (12-16); LYMPHOCYTE ABSOLUTE 1.6 Th/cmm (1.5-3.0); MEAN CELL VOLUME 89.7 fl (81-100); MEAN CORPUSCULAR HEMOGLOBIN 30.4 pg (27.0-31.0); MEAN CORPUSCULAR HGB CONC 33.9 pg (28.0-36.0); MEAN PLATELET VOLUME 7.6 fl; MONOCYTE ABSOLUTE 0.8 Th/cmm (0.3-1.0); NEUTROPHILE ABSOLUTE 6.6 Th/cmm (1.8-8.0); PLATELET COUNT 129 Th/cmm (150-400); RED BLOOD COUNT 3.44 Mil/cmm (3.80-5.20); RED CELL DISTRIBUTION WIDTH 13.3 % (11.5-20.0); WHITE BLOOD COUNT 9.2 Th/cmm (4.8-10.8)
[2017-12-29 08:05] LABS: INR 0.95 (0.5-1.4); PROTHROMBIN TIME (TEST) 9.9 SECONDS (9.5-11.5)
[2017-12-29] MEDS: Levothyroxine 0.025 Mg Tab PO SCH (08:08)
[2017-12-29] MEDS: Multivitamin w/ Minerals Tab PO SCH (08:08)
[2017-12-29 08:11] LABS: ANION GAP 11.7 (7.0-16.0); BUN - UREA NITROGEN 17 mg/dL (7-25); CALCIUM SERUM 8.5 mg/dL (8.6-10.3); CARBON DIOXIDE 24.1 mEq/L (21.0-31.0); CHLORIDE 110 mEq/L (98-107); CREATININE - SERUM 1.2 mg/dL (0.6-1.2); GLUCOSE 89 mg/dL (70-105); POTASSIUM SERUM 3.8 mEq/L (3.5-5.1); SODIUM SERUM 142 mEq/L (136-145)
--- NOTE | 2017-12-29 11:24 | Internal Medicine Prog Note ---
Internal Medicine Subjective - Subjective Patient seen and examined:: with staff, chart reviewed Patient is:: awake, verbal, confused Patient Complaints of:: congestion, vomitting Per staff patient has:: no adverse event, no episodes of fall, tolerating meds Internal Medicine Objective - Results Result Diagrams: 12/29/17 07:35 12/29/17 07:35 Recent Labs: Laboratory Last Values WBC 9.2 Th/cmm (4.8-10.8) 12/29/17 07:35 RBC 3.44 Mil/cmm (3.80-5.20) L 12/29/17 07:35 Hgb 10.5 gm/dL (12-16) L 12/29/17 07:35 Hct 30.8 % (41.0-60) L 12/29/17 07:35 MCV 89.7 fl (81-100) 12/29/17 07:35 MCH 30.4 pg (27.0-31.0) 12/29/17 07:35 MCHC Differential 33.9 pg (28.0-36.0) 12/29/17 07:35 RDW 13.3 % (11.5-20.0) 12/29/17 07:35 Plt Count 129 Th/cmm (150-400) L 12/29/17 07:35 MPV 7.6 fl 12/29/17 07:35 Neutrophils % 71.4 % (40.0-80.0) 12/29/17 07:35 Band Neutrophils % 3 % (0-10) 12/28/17 04:20 Lymphocytes % 17.2 % (20.0-50.0) L 12/29/17 07:35 Monocytes % 9.0 % (2.0-10.0) 12/29/17 07:35 Eosinophils % 2.2 % (0.0-5.0) 12/29/17 07:35 Basophils % 0.2 % (0.0-2.0) 12/29/17 07:35 Neutrophils (Manual) 83 % (40-80) H 12/28/17 04:20 Lymphocytes 10 % (20-50) L 12/28/17 04:20 Monocytes 2 % (2-10) 12/28/17 04:20 Eosinophils 2 % (0-5) 12/28/17 04:20 Basophils 0 % (0-3) 12/27/17 09:15 Platelet Estimate DECREASED PLATELETS (NORMAL) 12/28/17 04:20 Platelet Morphology NORMAL (NORMAL) 12/26/17 04:40 RBC Morph Micro Appear NORMAL (NORMAL) 12/26/17 04:40 PT 9.9 SECONDS (9.5-11.5) 12/29/17 07:35 INR 0.95 (0.5-1.4) 12/29/17 07:35 PTT (Actin FS) 32.3 SECONDS (26.0-38.0) 12/24/17 22:09 Sodium 142 mEq/L (136-145) 12/29/17 07:35 Potassium 3.8 mEq/L (3.5-5.1) 12/29/17 07:35 Chloride 110 mEq/L (98-107) H 12/29/17 07:35 Carbon Dioxide 24.1 mEq/L (21.0-31.0) 12/29/17 07:35 Anion Gap 11.7 (7.0-16.0) 12/29/17 07:35 BUN 17 mg/dL (7-25) 12/29/17 07:35 Creatinine 1.2 mg/dL (0.6-1.2) 12/29/17 07:35 Est GFR ( Amer) TNP 12/29/17 07:35 Est GFR (Non-Af Amer) TNP 12/29/17 07:35 BUN/Creatinine Ratio 14.2 12/29/17 07:35 Glucose 89 mg/dL (70-105) 12/29/17 07:35 POC Glucose 91 MG/DL (70 - 105) 12/29/17 06:00 Hemoglobin A1c % 5.3 % (4.0-6.0) 12/25/17 04:35 Whole Bld Lactic Acid 3.25 mmol/L (0.60-1.99) H* 12/25/17 00:15 Calcium 8.5 mg/dL (8.6-10.3) L 12/29/17 07:35 Total Bilirubin 0.4 mg/dL (0.3-1.0) 12/27/17 09:15 AST 16 U/L (13-39) 12/27/17 09:15 ALT 16 U/L (7-52) 12/27/17 09:15 Alkaline Phosphatase 89 U/L (34-104) 12/27/17 09:15 B-Natriuretic Peptide 276.0 pg/mL (5.0-100.0) H 12/26/17 06:00 Total Protein 5.3 gm/dL (6.0-8.3) L 12/27/17 09:15 Albumin 2.7 gm/dL (3.7-5.3) L 12/27/17 09:15 Globulin 2.6 gm/dL 12/27/17 09:15 Albumin/Globulin Ratio 1.0 (1.0-1.8) 12/27/17 09:15 Urine Source [place] 12/24/17 22:50 Urine Color YELLOW 12/24/17 22:50 Urine Clarity HAZY (CLEAR) 12/24/17 22:50 Urine pH 7.0 (4.6 - 8.0) 12/24/17 22:50 Ur Specific [place] 1.020 (1.005-1.030) 12/24/17 22:50 Urine Protein 100 mg/dL (NEGATIVE) H 12/24/17 22:50 Urine Glucose (UA) NEGATIVE mg/dL (NEGATIVE) 12/24/17 22:50 Urine Ketones 15 mg/dL (NEGATIVE) H 12/24/17 22:50 Urine Blood LARGE (NEGATIVE) H 12/24/17 22:50 Urine Nitrate NEGATIVE (NEGATIVE) 12/24/17 22:50 Urine Bilirubin SMALL (NEGATIVE) H 12/24/17 22:50 Urine Urobilinogen 0.2 E.U./dL (0.2 - 1.0) 12/24/17 22:50 Ur Leukocyte Esterase LARGE (NEGATIVE) H 12/24/17 22:50 Urine RBC 0-2 /hpf (0-5) 12/24/17 22:50 Urine WBC 50-100 /hpf (0-5) H 12/24/17 22:50 Ur Epithelial Cells MODERATE /lpf (FEW) 12/24/17 22:50 Urine Bacteria MANY /hpf (NONE SEEN) H 12/24/17 22:50 Random Vancomycin 23.1 ug/mL (5.0-40.0) 12/28/17 04:20 - Physical Exam Vitals and I&O: Vital Signs Temp 98.8 F 12/29/17 08:00 Pulse 103 06/19/18 10:40 Resp 31 12/29/17 10:40 BP 135/73 12/29/17 10:00 Pulse Ox 99 12/29/17 10:40 Intake & Output 12/28/17 12/29/17 12/29/17 18:59 06:59 18:59 Intake Total 700 1310 350 Output Total 1000 1060 Balance -300 250 350 Weight (lbs) 82.1 kg 82.1 kg Intake: Intake, IV Amount 350 1100 350 D5-0.45NS 1,000 ml @ 40 1000 mls/hr IV .Q24H [facility] Rx#: [id number] Piperacillin Sodium/ 100 100 100 Tazobact 2.25 gm In Sodium Chloride 0.9% 100 ml @ 100 mls/hr IV Q8HR [facility] Rx#:[id number] Vancomycin HCl 1 gm In 250 250 Sodium Chloride 0.9% 250 ml @ 165 mls/hr IV Q18H [facility] Rx#:[id number] Oral 50 0 Other 300 210 Output: Urine 1000 1060 Other: # Bowel Movements 2 1 Stool Characteristics Soft Formed Brown Weight Source Bedscale Bedscale Active Medications: Current Medications Acetaminophen (Tylenol) 650 mg PO Q6HR PRN PRN Reason: Pain or Fever >101 Stop: 02/22/18 23:20 Last Admin: 12/25/17 23:37 Dose: 650 mg Albuterol Sulfate (Albuterol 2.5mg/3ml Neb Ud) 2.5 mg HHN Q4H PRN PRN Reason: Shortness of Breath Albuterol Sulfate (Albuterol 2.5mg/3ml Neb Ud) 2.5 mg HHN QIDRT [facility] Stop: 02/23/18 06:59 Last Admin: 12/29/17 10:40 Dose: 2.5 mg Alprazolam (Xanax) 0.5 mg PO Q8H PRN; Protocol PRN Reason: Anxiety Stop: 02/23/18 23:51 Last Admin: 12/26/17 01:00 Dose: 0.5 mg Bisacodyl (Dulcolax 10 Mg Supp) 10 mg RC Q48H PRN PRN Reason: Constipation Stop: 02/22/18 23:20 Last Admin: 12/27/17 18:22 Dose: 10 mg Docusate Sodium (Colace) 100 mg PO BID [facility] Stop: 02/23/18 08:59 Last Admin: 12/29/17 08:08 Dose: Not Given Piperacillin Sod/Tazobactam (Sod 2.25 gm/ Sodium Chloride) 100 mls @ 100 mls/ hr IV Q8HR [facility] Stop: 02/23/18 04:59 Last Infusion: 12/29/17 07:00 Dose: Infused Dextrose/Sodium Chloride (D5-0.45ns) 1,000 mls @ 40 mls/hr IV .Q24H [facility] Stop: 02/25/18 20:59 Last Admin: 12/29/17 01:29 Dose: 40 mls/hr Vancomycin HCl 1 gm/ Sodium (Chloride) 250 mls @ 165 mls/hr IV Q18H [facility] Stop: 02/26/18 09:59 Last Infusion: 12/29/17 08:15 Dose: Infused Ipratropium [place] (Atrovent Neb 0.5mg/2.5ml) 0.5 mg HHN QIDRT [facility] Stop: 02/23/18 06:59 Last Admin: 12/29/17 10:40 Dose: 0.5 mg Levothyroxine Sodium (Synthroid) 0.025 mg PO QDAC [facility] Stop: 02/23/18 07:29 Last Admin: 12/29/17 08:08 Dose: Not Given Miscellaneous (Vancomycin Iv Per Pharmacy) 1 ea MC PRN PRN PRN Reason: PROTOCOL Stop: 02/24/18 07:36 Nystatin (Nystop) 100,000 units TP DAILY PRN PRN Reason: Rash Stop: 02/26/18 16:59 Last Admin: 12/28/17 21:50 Dose: 100,000 units Ondansetron HCl (Zofran) 4 mg IV Q8H PRN PRN Reason: Nausea / Vomiting Stop: 02/22/18 23:22 Last Admin: 12/27/17 21:23 Dose: 4 mg Pantoprazole Sodium (Protonix) 40 mg IVP BID [facility] Stop: 02/26/18 16:59 Last Admin: 12/29/17 08:29 Dose: 40 mg Prednisone (Deltasone) 5 mg PO BID [facility] Stop: 02/23/18 08:59 Last Admin: 12/29/17 08:08 Dose: Not Given Quetiapine Fumarate 100 mg/ (Quetiapine Fumarate 12.5 mg) 112.5 mg PO HS KEV; Protocol Stop: 02/26/18 20:59 Last Admin: 12/28/17 21:55 Dose: 112.5 mg Rivaroxaban (Xarelto) 10 mg PO DAILY [facility] Stop: 02/23/18 08:59 Last Admin: 12/29/17 08:08 Dose: Not Given Senna (Senna) 8.6 mg PO HS [facility] Stop: 02/23/18 20:59 Last Admin: 12/28/17 21:52 Dose: 8.6 mg General: weak, demented HEENT: NC/AT Neck: Supple Lungs: CTAB Cardiovascular: RRR, Normal S1, Normal S2, without murmur Abdomen: soft, non-tender, non-distended, positive bowel sound Extremities: excoriation Neurological: alert - Procedures Procedures: Procedures Procedure Code Date TANIA MUSC/FASCIA 20 SQ CM/< 97602 10/20/12 EXC LES SOFT TISSUE NEC 83.39 10/20/12 OPEN REDUC-INT FIX FEMUR 79.35 10/20/12 OTHER GROUP THERAPY 94.44 08/04/14 PACKED CELL TRANSFUSION 99.04 10/20/12 PARTIAL HIP REPLACEMENT 81.52 10/20/12 PARTIAL HIP REPLACEMENT 81166 10/20/12 RECREATIONAL THERAPY 93.81 12/29/11 TREAT THIGH FRACTURE 61378 10/20/12 Internal Medicine Assmt/Plan - Assessment Assessment: - Assessment Assessment: sepsis hypotension-improved possible gi bleed acute uti acute renal insufficiency r/o dehydration protein calorie malnutrition htn asthma copd hypercholesteremia debilitation hypothyroidism - Plan Plan: possible EGD TODAY will nystatin powder continue ivf for hydration monitor bp closely follow up labs in am continue current plan of care - Plan Plan: cpm Nutritional Asmnt/Malnutr-PDOC - Dietary Evaluation Malnutrition Findings (Please click <Entered> for more info): Nutritional Asmnt/Malnutrition Start: 12/25/17 16: 23 Text: Status: Complete Freq: Protocol: Document 12/25/17 16:23 ANAG (Rec: 12/25/17 16:36 ABI [email or web address]) Nutritional Asmnt/Malnutrition Patient General Information Nutritional Screening High Risk Consult Diagnosis reason for visitsepsis, hypothension Pertinent Medical Hx/Surgical Hx HTN, s/p UTI, depression, psychosis Subjective Information Pt seen lying in bed at time of visit, on O2 mask. [facility] soft chopped diet was started from lunch. RN phill alejo diet tolerance. Consult received for frannie score 12. Current Diet Order/ Nutrition Support [facility] soft chopped. Pertinent Medications D5-0.9%ns, colace, synthroid, piperacillin, senna, vancomycin Pertinent Labs 12/25 Cl 109, BUN 41, Cr 1.5, glucose 243 (trending up) 12/24 Na 132, Cl 97, BUN 28, Cr 2.1, glucose 138 Nutritional Hx/Data Height 1.63 m Height (Calculated Centimeters) 162.6 Current Weight (lbs) 82.1 kg Weight (Calculated Kilograms) 82.1 Weight (Calculated Grams) 44927.2 [place] Body Weight 120 Body Mass Index (BMI) 31.0 GI Symptoms GI Symptoms None Last BM none Difficult in: None Skin Integrity/Comment: pitting 1+ edema to right and left lower extremities. reddened to sacrum Estimated Nutritional Goals BEE in Kcals: Adj wt of IBW Calories/Kcals/Kg 27-32 adj 61kg Kcals Calculated 1328-6287 Protein: Adj wt of IBW Protein g/k.2 Protein Calculated 73 Fluid: ml 1647-1952ml (1ml/kcal) Nutritional Problem 1. Problem Problem increased nutrition needs ( calorie and protein) Etiology increased metabolic demand Signs/Symptoms: dx of sepsis. Malnutrition Alert Is there a minimum of two criteria No selected? Query Text:Check all the applicable criteria. A minimum of two criteria are recommended for diagnosis of either severe or non-severe malnutrition. Malnutrition Related to Morbid Obesity Malnutrition related to morbid obesity No Intervention/Recommendation Comments 1. Continue with current diet as ordered. If glucose continue high, will consider CCHO diet. 2. Monitor PO intake, wt, labs and skin integrity 3. F/U as hgih risk in 2-3 days, 12/27-12/28 Expected Outcomes/Goals Expected Outcomes/Goals 1. PO intake to meet at least 75% of nutritional needs. 2. Wt stability, skin to remain intact, labs to approach WNL.
--- NOTE | 2017-12-29 15:13 | Operative Report ---
DATE OF SURGERY: 12/29/2017 PROCEDURE: Esophagogastroduodenoscopy with biopsy. INDICATION FOR PROCEDURE: GI bleed. CONSENT: Informed consent was obtained from the patient's family after planning benefits and risks. ANESTHESIA USED: Propofol by Dr. Naranjo. PREOPERATIVE DIAGNOSIS: Gastrointestinal bleed. POSTOPERATIVE DIAGNOSES: 1. Erosive esophagitis grade 3. 2. Upper gastrointestinal bleed secondary to #1. 3. Gastritis. 4. Hiatal hernia. DESCRIPTION OF PROCEDURE: The patient was placed in left lateral position. Upper Olympus endoscope was introduced into the mouth and advanced to the esophagus, which was intubated under direct visualization. Esophageal mucosa was examined on the way down, it showed distal esophagitis with ulcerations involving the distal segment of the esophagus consistent with grade C. Scope was advanced to stomach where the gastric mucosa was examined and showed diffuse gastritis. Scope was retroflexed to examine the cardia and fundus showed the hiatal hernia. Scope was then straightened and advanced to the duodenum where the bulb and second part were examined. They were both normal. Scope withdrawn to the stomach. Same examination was repeated again without new findings, so biopsies were taken from the antrum for CLOtest. Scope was then withdrawn while examining the gastric and esophageal mucosa second time. The patient tolerated the procedure well. There were no immediate postoperative complications. RECOMMENDATIONS: 1. Follow up CLOtest. 2. Treat H. pylori if positive. 3. Continue Protonix b.i.d. 4. Diet as tolerated. Thank you, Dr. Gilbert for allowing me to participate in the care of your patient. If you have any further questions, please let me know. JOB# [id number]
[2017-12-29] MEDS: QUETIAPINE FUMARATE PO SCH (20:34)
--- NOTE | 2017-12-29 22:06 | Progress Notes ---
DATE: 12/29/2017 Case was discussed with staff of the patient, reviewed records. The patient will be having an EGD later today. The patient today is selectively mute. She is still unpredictable, impulsive, needing redirection. She is not as agitated and all over the place that she was yesterday. She is n.p.o. for the EGD procedure. She slept okay last night, not answering questions. The patient, if she continues to act the same more like she did yesterday and maybe she needs to go to [facility]. Thank you very much for allowing me to participate in care of this most interesting patient. JOB# [id number]
[2017-12-30] MEDS: D5-0.45NS 1,000 ML IV SCH (02:34)
[2017-12-30] MEDS: Piperacillin Sodium/Tazobact 2.25 GM in Sodium Chloride 0.9% 100 ML IV SCH ×2 (04:25→13:44)
[2017-12-30] MEDS: Levothyroxine 0.025 Mg Tab PO SCH (06:44)
[2017-12-30] MEDS: Albuterol Nebulizer 2.5mg/3mL HHN SCH ×2 (07:43→11:42)
[2017-12-30] MEDS: Ipratropium Neb 0.5 mg/2.5 mL UD HHN SCH ×2 (07:43→11:42)
[2017-12-30] MEDS: Multivitamin w/ Minerals Tab PO SCH (08:12)
--- NOTE | 2017-12-30 10:49 | Progress Notes ---
DATE: 12/30/2017 SUBJECTIVE: Case was discussed with staff of the patient, reviewed records. The patient had an EGD yesterday. Today, she is on oxygen mask. The staff reported that she has been paranoid. She was ____ tried to give her medication. She continues to have poor insight. Continues to be unpredictable, impulsive, needing redirection. I did increase her Seroquel dose 2 days ago, 212.5 mg at bedtime. I will be increasing the dose further to 125 and so far because of her paranoia, no side effects, no sedation. No nausea. No extrapyramidal symptoms. Thank you very much for allowing me to participate in the care of this most interesting lady. [facility]# [id number]
--- NOTE | 2017-12-30 14:44 | Internal Medicine Prog Note ---
Internal Medicine Subjective - Subjective Service Date: 12/30/17 (dc summary [id number]) Patient is:: awake, verbal, confused Patient Complaints of:: congestion, vomitting Per staff patient has:: no adverse event, no episodes of fall, tolerating meds Internal Medicine Objective - Results Result Diagrams: 12/29/17 07:35 12/29/17 07:35 Recent Labs: Laboratory Last Values WBC 9.2 Th/cmm (4.8-10.8) 12/29/17 07:35 RBC 3.44 Mil/cmm (3.80-5.20) L 12/29/17 07:35 Hgb 10.5 gm/dL (12-16) L 12/29/17 07:35 Hct 30.8 % (41.0-60) L 12/29/17 07:35 MCV 89.7 fl (81-100) 12/29/17 07:35 MCH 30.4 pg (27.0-31.0) 12/29/17 07:35 MCHC Differential 33.9 pg (28.0-36.0) 12/29/17 07:35 RDW 13.3 % (11.5-20.0) 12/29/17 07:35 Plt Count 129 Th/cmm (150-400) L 12/29/17 07:35 MPV 7.6 fl 12/29/17 07:35 Neutrophils % 71.4 % (40.0-80.0) 12/29/17 07:35 Band Neutrophils % 3 % (0-10) 12/28/17 04:20 Lymphocytes % 17.2 % (20.0-50.0) L 12/29/17 07:35 Monocytes % 9.0 % (2.0-10.0) 12/29/17 07:35 Eosinophils % 2.2 % (0.0-5.0) 12/29/17 07:35 Basophils % 0.2 % (0.0-2.0) 12/29/17 07:35 Neutrophils (Manual) 83 % (40-80) H 12/28/17 04:20 Lymphocytes 10 % (20-50) L 12/28/17 04:20 Monocytes 2 % (2-10) 12/28/17 04:20 Eosinophils 2 % (0-5) 12/28/17 04:20 Basophils 0 % (0-3) 12/27/17 09:15 Platelet Estimate DECREASED PLATELETS (NORMAL) 12/28/17 04:20 Platelet Morphology NORMAL (NORMAL) 12/26/17 04:40 RBC Morph Micro Appear NORMAL (NORMAL) 12/26/17 04:40 PT 9.9 SECONDS (9.5-11.5) 12/29/17 07:35 INR 0.95 (0.5-1.4) 12/29/17 07:35 PTT (Actin FS) 32.3 SECONDS (26.0-38.0) 12/24/17 22:09 Sodium 142 mEq/L (136-145) 12/29/17 07:35 Potassium 3.8 mEq/L (3.5-5.1) 12/29/17 07:35 Chloride 110 mEq/L (98-107) H 12/29/17 07:35 Carbon Dioxide 24.1 mEq/L (21.0-31.0) 12/29/17 07:35 Anion Gap 11.7 (7.0-16.0) 12/29/17 07:35 BUN 17 mg/dL (7-25) 12/29/17 07:35 Creatinine 1.2 mg/dL (0.6-1.2) 12/29/17 07:35 Est GFR ( Amer) TNP 12/29/17 07:35 Est GFR (Non-Af Amer) TNP 12/29/17 07:35 BUN/Creatinine Ratio 14.2 12/29/17 07:35 Glucose 89 mg/dL (70-105) 12/29/17 07:35 POC Glucose 91 MG/DL (70 - 105) 12/29/17 06:00 Hemoglobin A1c % 5.3 % (4.0-6.0) 12/25/17 04:35 Whole Bld Lactic Acid 3.25 mmol/L (0.60-1.99) H* 12/25/17 00:15 Calcium 8.5 mg/dL (8.6-10.3) L 12/29/17 07:35 Total Bilirubin 0.4 mg/dL (0.3-1.0) 12/27/17 09:15 AST 16 U/L (13-39) 12/27/17 09:15 ALT 16 U/L (7-52) 12/27/17 09:15 Alkaline Phosphatase 89 U/L (34-104) 12/27/17 09:15 B-Natriuretic Peptide 276.0 pg/mL (5.0-100.0) H 12/26/17 06:00 Total Protein 5.3 gm/dL (6.0-8.3) L 12/27/17 09:15 Albumin 2.7 gm/dL (3.7-5.3) L 12/27/17 09:15 Globulin 2.6 gm/dL 12/27/17 09:15 Albumin/Globulin Ratio 1.0 (1.0-1.8) 12/27/17 09:15 Urine Source [place] 12/24/17 22:50 Urine Color YELLOW 12/24/17 22:50 Urine Clarity HAZY (CLEAR) 12/24/17 22:50 Urine pH 7.0 (4.6 - 8.0) 12/24/17 22:50 Ur Specific [place] 1.020 (1.005-1.030) 12/24/17 22:50 Urine Protein 100 mg/dL (NEGATIVE) H 12/24/17 22:50 Urine Glucose (UA) NEGATIVE mg/dL (NEGATIVE) 12/24/17 22:50 Urine Ketones 15 mg/dL (NEGATIVE) H 12/24/17 22:50 Urine Blood LARGE (NEGATIVE) H 12/24/17 22:50 Urine Nitrate NEGATIVE (NEGATIVE) 12/24/17 22:50 Urine Bilirubin SMALL (NEGATIVE) H 12/24/17 22:50 Urine Urobilinogen 0.2 E.U./dL (0.2 - 1.0) 12/24/17 22:50 Ur Leukocyte Esterase LARGE (NEGATIVE) H 12/24/17 22:50 Urine RBC 0-2 /hpf (0-5) 12/24/17 22:50 Urine WBC 50-100 /hpf (0-5) H 12/24/17 22:50 Ur Epithelial Cells MODERATE /lpf (FEW) 12/24/17 22:50 Urine Bacteria MANY /hpf (NONE SEEN) H 12/24/17 22:50 Vancomycin Trough 32.9 ug/mL (5-10) H 12/29/17 21:15 Random Vancomycin 23.1 ug/mL (5.0-40.0) 12/28/17 04:20 Helicobacter pylori Ab NEGATIVE (NEGATIVE) 12/29/17 13:00 - Physical Exam Vitals and I&O: Vital Signs Temp 97.0 F 12/30/17 12:45 Pulse 104 12/30/17 12:45 Resp 20 12/30/17 12:45 BP 119/54 12/30/17 12:45 Pulse Ox 96 12/30/17 12:45 Intake & Output 12/29/17 12/30/17 12/30/17 18:59 06:59 18:59 Intake Total 1100 1387.333 Output Total 850 750 Balance 250 637.333 Weight (lbs) 181 lb 181 lb Intake: Intake, IV Amount 450 1337.333 D5-0.45NS 1,000 ml @ 40 1137.333 mls/hr IV .Q24H [facility] Rx#: [id number] Piperacillin Sodium/ 200 200 Tazobact 2.25 gm In Sodium Chloride 0.9% 100 ml @ 100 mls/hr IV Q8HR [facility] Rx#:[id number] Vancomycin HCl 1 gm In 250 Sodium Chloride 0.9% 250 ml @ 165 mls/hr IV Q18H [facility] Rx#:[id number] Oral 650 50 Output: Urine 850 750 Other: # Bowel Movements 1 2 Stool Characteristics Soft Soft Brown Brown Weight Source Bedscale Bedscale Active Medications: Current Medications Acetaminophen (Tylenol) 650 mg PO Q6HR PRN PRN Reason: Pain or Fever >101 Stop: 02/22/18 23:20 Last Admin: 12/25/17 23:37 Dose: 650 mg Albuterol Sulfate (Albuterol 2.5mg/3ml Neb Ud) 2.5 mg HHN Q4H PRN PRN Reason: Shortness of Breath Albuterol Sulfate (Albuterol 2.5mg/3ml Neb Ud) 2.5 mg HHN QIDRT KVE Stop: 02/23/18 06:59 Last Admin: 12/30/17 11:42 Dose: 2.5 mg Alprazolam (Xanax) 0.5 mg PO Q8H PRN; Protocol PRN Reason: Anxiety Stop: 02/23/18 23:51 Last Admin: 12/26/17 01:00 Dose: 0.5 mg Bisacodyl (Dulcolax 10 Mg Supp) 10 mg RC Q48H PRN PRN Reason: Constipation Stop: 02/22/18 23:20 Last Admin: 12/27/17 18:22 Dose: 10 mg Docusate Sodium (Colace) 100 mg PO BID [facility] Stop: 02/23/18 08:59 Last Admin: 12/30/17 08:12 Dose: Not Given Piperacillin Sod/Tazobactam (Sod 2.25 gm/ Sodium Chloride) 100 mls @ 100 mls/ hr IV Q8HR [facility] Stop: 02/23/18 04:59 Last Admin: 12/30/17 13:44 Dose: 100 mls/hr Dextrose/Sodium Chloride (D5-0.45ns) 1,000 mls @ 40 mls/hr IV .Q24H [facility] Stop: 02/25/18 20:59 Last Infusion: 12/30/17 06:00 Dose: 40 mls/hr Ipratropium [place] (Atrovent Neb 0.5mg/2.5ml) 0.5 mg HHN QIDRT [facility] Stop: 02/23/18 06:59 Last Admin: 12/30/17 11:42 Dose: 0.5 mg Levothyroxine Sodium (Synthroid) 0.025 mg PO QDAC [facility] Stop: 02/23/18 07:29 Last Admin: 12/30/17 06:44 Dose: 0.025 mg Miscellaneous (Vancomycin Iv Per Pharmacy) 1 ea MC PRN PRN PRN Reason: PROTOCOL Stop: 02/24/18 07:36 Nystatin (Nystop) 100,000 units TP DAILY PRN PRN Reason: Rash Stop: 02/26/18 16:59 Last Admin: 12/28/17 21:50 Dose: 100,000 units Ondansetron HCl (Zofran) 4 mg IV Q8H PRN PRN Reason: Nausea / Vomiting Stop: 02/22/18 23:22 Last Admin: 12/27/17 21:23 Dose: 4 mg Pantoprazole Sodium (Protonix) 40 mg IVP BID [facility] Stop: 02/26/18 16:59 Last Admin: 12/30/17 08:16 Dose: 40 mg Prednisone (Deltasone) 5 mg PO BID [facility] Stop: 02/23/18 08:59 Last Admin: 12/30/17 08:12 Dose: Not Given Quetiapine Fumarate 100 mg/ (Quetiapine Fumarate 25 mg) 125 mg PO HS [facility] Stop: 02/28/18 20:59 Rivaroxaban (Xarelto) 10 mg PO DAILY [facility] Stop: 02/23/18 08:59 Last Admin: 12/30/17 08:12 Dose: Not Given Senna (Senna) 8.6 mg PO HS [facility] Stop: 02/23/18 20:59 Last Admin: 12/29/17 20:34 Dose: 8.6 mg General: weak, demented HEENT: NC/AT Neck: Supple Lungs: CTAB Cardiovascular: RRR, Normal S1, Normal S2, without murmur Abdomen: soft, non-tender, non-distended, positive bowel sound Extremities: excoriation Neurological: alert - Procedures Procedures: Procedures Procedure Code Date TANIA MUSC/FASCIA 20 SQ CM/< 23904 10/20/12 EXC LES SOFT TISSUE NEC 83.39 10/20/12 OPEN REDUC-INT FIX FEMUR 79.35 10/20/12 OTHER GROUP THERAPY 94.44 08/04/14 PACKED CELL TRANSFUSION 99.04 10/20/12 PARTIAL HIP REPLACEMENT 81.52 10/20/12 PARTIAL HIP REPLACEMENT 68909 10/20/12 RECREATIONAL THERAPY 93.81 12/29/11 TREAT THIGH FRACTURE 76306 10/20/12 Internal Medicine Assmt/Plan - Assessment Assessment: sepsis hypotension-improved possible gi bleed acute uti acute renal insufficiency r/o dehydration protein calorie malnutrition htn asthma copd hypercholesteremia debilitation hypothyroidism - Plan Plan: possible EGD TODAY will nystatin powder continue ivf for hydration monitor bp closely follow up labs in am continue current plan of care Nutritional Asmnt/Malnutr-PDOC - Dietary Evaluation Malnutrition Findings (Please click <Entered> for more info): Nutritional Asmnt/Malnutrition Start: 12/25/17 16: 23 Text: Status: Complete Freq: Protocol: Document 12/25/17 16:23 LCHENG (Rec: 12/25/17 16:36 [email or web address] [id number]) Nutritional Asmnt/Malnutrition Patient General Information Nutritional Screening High Risk Consult Diagnosis reason for visitsepsis, hypothension Pertinent Medical Hx/Surgical Hx HTN, s/p UTI, depression, psychosis Subjective Information Pt seen lying in bed at time of visit, on O2 mask. [facility] soft chopped diet was started from lunch. RN will melo diet tolerance. Consult received for frannie score 12. Current Diet Order/ Nutrition Support [facility] soft chopped. Pertinent Medications D5-0.9%ns, colace, synthroid, piperacillin, senna, vancomycin Pertinent Labs 12/25 Cl 109, BUN 41, Cr 1.5, glucose 243 (trending up) 12/24 Na 132, Cl 97, BUN 28, Cr 2.1, glucose 138 Nutritional Hx/Data Height 5 ft 4 in Height (Calculated Centimeters) 162.6 Current Weight (lbs) 181 lb Weight (Calculated Kilograms) 82.1 Weight (Calculated Grams) 67558.2 [place] Body Weight 120 Body Mass Index (BMI) 31.0 GI Symptoms GI Symptoms None Last BM none Difficult in: None Skin Integrity/Comment: pitting 1+ edema to right and left lower extremities. reddened to sacrum Estimated Nutritional Goals BEE in Kcals: Adj wt of IBW Calories/Kcals/Kg 27-32 adj 61kg Kcals Calculated 3810-2547 Protein: Adj wt of IBW Protein g/k.2 Protein Calculated 73 Fluid: ml 1647-1952ml (1ml/kcal) Nutritional Problem 1. Problem Problem increased nutrition needs ( calorie and protein) Etiology increased metabolic demand Signs/Symptoms: dx of sepsis. Malnutrition Alert Is there a minimum of two criteria No selected? Query Text:Check all the applicable criteria. A minimum of two criteria are recommended for diagnosis of either severe or non-severe malnutrition. Malnutrition Related to Morbid Obesity Malnutrition related to morbid obesity No Intervention/Recommendation Comments 1. Continue with current diet as ordered. If glucose continue high, will consider CCHO diet. 2. Monitor PO intake, wt, labs and skin integrity 3. F/U as hgih risk in 2-3 days, 12/27-12/28 Expected Outcomes/Goals Expected Outcomes/Goals 1. PO intake to meet at least 75% of nutritional needs. 2. Wt stability, skin to remain intact, labs to approach WNL.
--- NOTE | 2017-12-30 16:32 | Consultation ---
DATE OF CONSULTATION: 12/28/2017 COVERING FOR: Ovidio Breaux MD IDENTIFYING INFORMATION: The patient is a 72-year-old female. REASON FOR CONSULTATION: The patient has a history of sepsis, bipolar disorder, schizophrenia. She came in ____ with UTI infection. The patient herself started as being a reasonable historian. Then, she started insisting that she take my papers and read it, then I explained to her that I only have lists of the patients at hospital and she would not talk to me after that. She believed this is December 2018. She admits to history of schizophrenia, bipolar disorder with a probable suicidal ideation, so she said she has attempted suicidal ideation. She has not been sleeping or eating well. PAST PSYCHIATRIC HISTORY: Paranoid schizophrenia and bipolar disorder with history of prior hospitalizations, prior suicide ideation or attempt. She has a history of using drugs. She has a history of admitting suicide intent, however, she is not a reliable historian. MEDICAL HISTORY: Deferred to the medical doctor. MEDICATIONS: She is on Seroquel 100 mg at bedtime. FAMILY AND SOCIAL HISTORY: The patient is since 1975. She was not sure how long she was . She stopped taking any drugs for 8 years. She reports that she has many children, unable to tell me how many, unable to tell if there is any family psychotic disorder or substance abuse, unable to tell me what she did for living or how far she did school. MENTAL STATUS EXAMINATION: The patient is appropriately dressed, not very well groomed. She was alert. She roughly knew that this is December, either the 19, she said it was 18, but she thinks it is 2018, not sure of the age. She knew she was at [facility]. She reports she is not sleeping or eating well. She denies any intent to harm herself or anyone, but suddenly she became very inappropriate and wanted to read the papers I have, which is a list of patients in the hospital and I tried to explain to her that there is nothing to read in it. Her long and short term memory are poor, unable to concentrate long enough to participate. Her insight and judgment is impaired. IMPRESSION: AXIS I: Bipolar disorder, depressed with psychosis. History of polysubstance abuse. MEDICAL DIAGNOSES: Deferred to the medical doctor. I will be increasing Seroquel to ____ mg at bedtime. The patient can go to [facility] when medically cleared. The patient will have an endoscopy tomorrow. Thank you very much for allowing me to participate in the care of this most interesting lady. JOB# [id number]
--- NOTE | 2017-12-30 17:26 | Discharge Summary ---
DATE OF DISCHARGE: 12/25/2017 DISCHARGE DIAGNOSES: Sepsis; hypotension, which has improved; possible gastrointestinal bleed; acute UTI; acute renal insufficiency; rule out dehydration; protein-calorie malnutrition; hypertension; asthma; COPD; hypercholesterolemia; debilitation; hypothyroidism. Urine culture positive for Providencia stuartii, Proteus mirabilis and also blood culture positive for Proteus mirabilis. HISTORY OF PRESENT ILLNESS: This is a 72-year-old female who is a retirement resident, admitted to the ICU unit due to coffee-ground emesis. The patient had also an episode of hypotension. The patient was given 25% of albumin and blood pressure has improved. PHYSICAL EXAMINATION: GENERAL: Elderly female, awake, alert, in no apparent distress. VITAL SIGNS: Stable. HEENT: Head normocephalic and atraumatic. NECK: Supple. No mass. LUNGS: Clear bilaterally. HEART: Regular rate and rhythm. ABDOMEN: Soft and nontender. HOSPITAL COURSE: During the hospital stay, the patient was admitted to the ICU unit. The patient had episode of hypotension, was given 25% of albumin and blood pressure has since then improved. The patient had a urine culture done and was positive for Providencia stuartii and Proteus mirabilis. Also, a blood culture was positive for Proteus mirabilis. The patient was kept on IV antibiotics. On 12/29/2017, the patient had an EGD done and impression was erosive esophagitis grade 3, upper gastrointestinal bleed secondary to erosive esophagitis, gastritis and hiatal hernia. Due to the need of continuing IV antibiotics, it was then decided for patient to be transferred to [facility]. CONDITION UPON DISCHARGE: Fair. DISPOSITION: [facility]. JOB# [id number]
== END 2017-12-30 15:31 | DRG 871 ==
LOC: ER 21:53 → ICU 23:43
PROVIDERS: ADMIT Internal Medicine; ATTEND Internal Medicine
PROC: 0DB68ZX Excision of Stomach, Via Natural or Artificial Opening Endoscopic, Diagnostic (ICD-10-PCS; principal; 2017-12-29)
DX: A41.9 Sepsis, unspecified organism (principal); K22.11 Ulcer of esophagus with bleeding; E43 Unspecified severe protein-calorie malnutrition; N17.0 Acute kidney failure with tubular necrosis; K29.71 Gastritis, unspecified, with bleeding; N39.0 Urinary tract infection, site not specified; K56.7 Ileus, unspecified; F31.5 Bipolar disorder, current episode depressed, severe, with psychotic features; E78.00 Pure hypercholesterolemia, unspecified; B96.89 Other specified bacterial agents as the cause of diseases classified elsewhere; B96.4 Proteus (mirabilis) (morganii) as the cause of diseases classified elsewhere; I13.10 Hypertensive heart and chronic kidney disease without heart failure, with stage 1 through stage 4 chronic kidney disease, or unspecified chronic kidney disease; E78.5 Hyperlipidemia, unspecified; K56.41 Fecal impaction; F03.90 Unspecified dementia, unspecified severity, without behavioral disturbance, psychotic disturbance, mood disturbance, and anxiety; J44.9 Chronic obstructive pulmonary disease, unspecified; E03.9 Hypothyroidism, unspecified; N18.2 Chronic kidney disease, stage 2 (mild); E86.0 Dehydration; R45.87 Impulsiveness; K44.9 Diaphragmatic hernia without obstruction or gangrene; Z68.31 Body mass index [BMI] 31.0-31.9, adult; Z91.5 Personal history of self-harm; Z79.899 Other long term (current) drug therapy; Z86.73 Personal history of transient ischemic attack (TIA), and cerebral infarction without residual deficits
CPT/HCPCS: 36415-UA; 71045-TC; 74000-TC; 80048-TC; 80053-TC; 80202-TC; 81001-TC; 82948-90; 83036-90; 83605; 83880-TC; 85007-TC; 85025-TC; 85027-TC; 85610-TC; 85730-TC; 87086-90; 87338-TC; 90779; 93005; 96375; C9113; J0696; J2405; J2543; J3370; J3480; J7030; J7042; J7512; J7613; P9045; Z7610